=== PATIENT | female | born 1935 | race Caucasian/White ===

== ENCOUNTER 2018-05-15 07:10 | Emergency (ER) | payer OTHER, SELFPAY ==
[2018-05-15 07:10] VITALS: BP 183/82; PULSE 80; RESP 16; TEMP 36.6; O2SAT 96
[2018-05-15 07:20] VITALS: BP 183/82; PULSE 73; RESP 17; O2SAT 95
--- NOTE | 2018-05-15 07:32 | ED.FALL ---
HPI - Fall General Chief Complaint: Trauma Stated Complaint: FELL DOWN STAIRS HIT HEAD Time Seen by Provider: 05/15/18 07:19 Source: patient Mode of arrival: ambulatory Limitations: no limitations History of Present Illness HPI Narrative: Patient is an 82-year-old female on anticoagulation here for evaluation after she fell down flight of stairs at her home. She states that she missed a step while going to the bathroom. She did hit her head. She does have left hip pain. Does have a history of epilepsy but feels like she did not have a seizure. Came into the emergency department by private vehicle. Is complaining of some dizziness. Related Data Home Medications Medication Instructions Recorded Confirmed atorvastatin 10 mg PO DAILY 05/15/18 05/15/18 clopidogrel 75 mg PO DAILY 05/15/18 05/15/18 gabapentin 200 mg PO QID 05/15/18 05/15/18 levothyroxine 88 mcg PO DAILY 05/15/18 05/15/18 lisinopril 20 mg PO DAILY 05/15/18 05/15/18 phenobarbital 97.2 mg PO DAILY 05/15/18 05/15/18 phenytoin sodium extended 05/15/18 Previous Rx's Medication Instructions Recorded acetaminophen-codeine 1 tab PO Q4-6H PRN #10 tab 05/15/18 [Tylenol-Codeine #3] Allergies Allergy/AdvReac Type Severity Reaction Status Date / Time Penicillins Allergy Verified 05/15/18 07:34 Review of Systems Constitutional Denies fever(s), Denies frequent falls and Reports headache(s) Eyes Denies change in vision and Denies diplopia ENT Ears, Nose, Mouth, and Throat: Reports dizziness, Reports headache(s) and Reports disequilibrium Cardiovascular Denies chest pain, Denies syncope, Denies edema, Denies palpitations and Denies dyspnea Respiratory Denies dyspnea Gastrointestinal Gastrointestinal: Denies abdominal pain, Denies nausea and Denies vomiting Genitourinary Denies dysuria Musculoskeletal Comments: Left hip pain, left shoulder pain, lower back pain Integumentary/Breasts Comments: Bleeding from the back of the head Neurologic Denies confusion, Reports dizziness, Denies syncope, Denies frequent falls, Reports headache(s) and Reports disequilibrium Psychiatric Denies confusion Endocrine Denies palpitations Hematologic/Lymphatic Comments: On anticoagulation Exam Initial Vital Signs Initial Vital Signs: Vital Signs Temperature 97.8 F 05/15/18 07:10 Pulse Rate 80 05/15/18 07:10 Respiratory Rate 16 05/15/18 07:10 Blood Pressure 183/82 H 05/15/18 07:10 Pulse Oximetry 96 05/15/18 07:10 Const General: cooperative, comfortable, well developed, well groomed and No acute distress Orientation: alert, awake and oriented x3 HENMT Head: other (Bleeding from the back the head. 2 cm laceration a goose egg on the left p) Eyes Pupils: PERRL Chest Chest: normal inspection of the chest Resp Effort & Inspection: normal respiratory effort Auscultation: clear to auscultation bilaterally Cardio Rate: regular rate Rhythm: regular rhythm Pulses: radial pulses present GI Inspection: non-distended Palpation: soft, No firm and No tender Back/Spine/Pelvis Cervical Spine: cervical ROM normal, No collar present, No cervical muscular tenderness, No cervical spasm, No cervical spinal tenderness, No step off deformity and No cervical ROM abnormal Thoracic/Lumbar Spine: No thoracic spinal tenderness and lumbar spinal tenderness Other: Tenderness to palpation midline back Skin Other: Abrasion and bruising over the posterior aspect of the left shoulder. Neuro General: alert, awake and oriented x3 Cognition: normal cognition Speech: speech normal Extrem General: normal to inspection and capillary refill normal Other: Patient with full range of motion of the left shoulder. Able to touch her right shoulder with her left hand. Does have flexion-extension of the left wrist however is tender to palpation of the left hemipelvis. Right upper extremity unremarkable. Right lower extremity unremarkable. Psych Appearance: grossly normal and well kempt [facility] Medical History Epilepsy (Acute) Social History marital status: lives independently: Yes Social History marital status: lives independently: Yes Procedures Laceration Repair Laceration 1: Site: scalp Size (cm): 4 Description: linear Depth: simple, single layer Local Anesthetic: lidocaine 1% and with epi Amount of anesthesia used (mL): 5 Pre-repair: wound explored and irrigated extensively Skin layer closed with: kit Number of sutures: 4 Course Orders Ordered: ED Orders 05/15/18 07:32 XR lumbar spine 2-3V Stat XR pelvis 1-2V Stat 05/15/18 07:39 CT head/brain wo con Stat 05/15/18 08:18 Urine Microscopic Stat 05/15/18 08:25 Partial Thromboplastin Time Stat Prothrombin Time INR Stat Vital Signs - 8 hr 05/15/18 07:10 05/15/18 07:20 05/15/18 08:00 Temperature 97.8 F Pulse Rate 80 73 71 Respiratory Rate 16 17 17 Blood Pressure 183/82 H Blood Pressure [Right Arm] 183/82 H 165/64 H Pulse Oximetry 96 95 05/15/18 08:30 05/15/18 09:00 05/15/18 10:28 Temperature 97.7 F Pulse Rate 75 91 H 86 Respiratory Rate 18 16 16 Blood Pressure 130/70 Blood Pressure [Right Arm] 141/64 H 112/74 Pulse Oximetry 100 96 MDM - Fall Lab Data Lab Results 05/15/18 05/15/18 Range/Units 08:18 08:25 PT 11.5 (10.1-12.7) SECONDS INR 1.0 (0.9-1.3) APTT 27 (26.4-36.2) SECONDS Urine RBC 10-30/hpf H (0-5/HPF) Urine WBC None seen (0-5/HPF) Urine Bacteria None seen (None) Ur Culture Indicated? Cult not indicated Urine Dip Bedside Urine Glucose Negative Bedside Urine Bilirubin - Negative Bedside Urine Ketone - Negative Urine Specific [place] 1.015 Bedside Urine Occult Blood +++ Bedside Urine pH 7.5 Bedside Urine Protein - Negative Bedside Urine Urobilinogen - Negative Bedside Urine Nitrite - Negative Bedside Urine Leukocytes - Negative Esterase Imaging Data CT scan - head: Radiologist's impression: [address] [address] [address] Scan Report Signed Patient: MARC CARREON [facility]#: [id number] : 8Acct:[id number] Age/Sex: 82 / FDate of Service: 05/15/18 Loc: ED Accession Number: [id number] Procedure: CT head/brain wo con Ordering Provider: Marvel Smith D.O. PROCEDURE: CT HEAD/BRAIN WO CON INDICATIONS: fall on anticoagulation TECHNIQUE: Noncontrast 4.5 mm thick angled axial sections acquired from the foramen magnum to the vertex, with coronal and sagittal reformats. For radiation dose reduction, the following was used: automated exposure control, adjustment of mA and/or kV according to patient size. COMPARISON: None. FINDINGS: Image quality: Excellent. CSF spaces: Basal cisterns are patent. No extra-axial fluid collections. The ventricles are symmetric in size and shape. Brain: No intracranial bleeds or masses. There is cerebral volume loss for age, with resultant ventricular and sulcal prominence. There are periventricular and deep white matter chronic small vessel ischemic changes. There is intracranial internal carotid artery atherosclerosis. Skull and face: Left parieto-occipital scalp contusion. Hyperostosis frontalis. Calvarium and visualized facial bones appear intact, without suspicious lesions. Sinuses: Visualized sinuses and mastoids are clear. IMPRESSION: 1. No acute intracranial abnormalities. 2. Cerebral volume loss and chronic microvascular ischemic changes. Dictated by: Blessing Bergeron M.D. on 05/15/2018 at 7:54 Approved by: Blessing Bergeron M.D. on 05/15/2018 at 7:56 lumbar spine X ray: Radiologist's impression: [address] [address] XRay Report Signed Patient: Marc Carreon [facility]#: [id number] : 8Acct:[id number] Age/Sex: 82 / FDate of Service: 05/15/18 Loc: ED Accession Number: [id number] Procedure: XR lumbar spine 2-3V Ordering Provider: Marvel Smith D.O. PROCEDURE: XR LUMBAR SPINE 2-3V INDICATIONS: fall with pain TECHNIQUE: 3 views of the lumbar spine were acquired. COMPARISON: None. FINDINGS: Bones: 5 [id number] vertebrae are present. There is n severely bowed convex scoliotic curvature with apex at L2. No gross vertebral body compression fractures. However, evaluation is limited secondary to scoliotic curvature and osteopenia. Multilevel superimposed degenerative changes are present. No suspicious bony lesions. Soft tissues: Overlying bowel gas pattern is normal. No suspicious soft tissue calcifications. IMPRESSION: No gross acute fracture. However, this is a limited exam secondary to scoliotic curvature, osteopenia and severe degenerative change. If clinical concern persists, CT is recommended. Dictated by: Genoveva Caicedo M.D. on 05/15/2018 at 8:32 Approved by: Genoveva Caicedo M.D. on 05/15/2018 at 8:33 X ray pelvis: Radiologist's impression: [address] [address] XRay Report Signed Patient: Marc Carreon [facility]#: [id number] : 8Acct:[id number] Age/Sex: 82 / FDate of Service: 05/15/18 Loc: ED Accession Number: [id number] Procedure: XR pelvis 1-2V Ordering Provider: Marvel Smith D.O. PROCEDURE: XR PELVIS 1-2V INDICATIONS: fall with left hip pain TECHNIQUE: 1 view(s) of the pelvis acquired. COMPARISON: None. FINDINGS: Bones: No fractures or dislocations. No suspicious bony lesions. Soft tissues: Visualized bowel gas pattern is normal. No suspicious soft tissue calcifications. IMPRESSION: No visualized acute fracture or dislocation. However, if clinical concern and/or pain persist, short interval imaging followup in 7-10 days is recommended, as occult injury cannot be definitively excluded. Dictated by: Genoveva Caicedo M.D. on 05/15/2018 at 8:31 Approved by: Genoveva Caicedo M.D. on 05/15/2018 at 8:32 MDM Narrative Medical decision making narrative: No acute orthopedic injuries noted on the x-rays. Her scalp laceration was closed as above. Patient stated that she felt okay going home since she is living with her son and [id number]. We did discuss the importance of her not falling again. We did discuss that her pain medication that I was sending her home with could potentially make her drowsy and that she needed to be careful. She was given return precautions. She does have a walker at home. Patient did walk for short distance here in the emergency department prior to discharge both her and her son expressed understanding and agreement with this plan. Discharge Plan Departure Patient Disposition: Home Clinical Impression: Laceration of scalp Qualifiers: Encounter type: initial encounter Qualified Code(s): S01.01XA - Laceration without foreign body of scalp, initial encounter Contusion of left shoulder Qualifiers: Encounter type: initial encounter Qualified Code(s): S40.012A - Contusion of left shoulder, initial encounter Acute hip pain Qualifiers: Laterality: left Qualified Code(s): M25.552 - Pain in left hip Fall Qualifiers: Encounter type: initial encounter Qualified Code(s): W19.XXXA - Unspecified fall, initial encounter Discharge Date/Time: 05/15/18 10:29 Interventions: ED Discharge Assessment Last Done: 05/15/18 10:28 Instructions: DI for Laceration Repair -- Kit, DI for Laceration Repair of the Scalp, How to Prevent Falls Activity Restrictions/Additional Instructions: Expect to be sore. Continue all of your medications. The kit do need to be removed in the next 7-10 days. You can shower like normal and use soap and water like normal. Return to the emergency department for any new or worsening symptoms Prescriptions: New acetaminophen-codeine [Tylenol-Codeine #3] 300-30 mg tablet 1 tab PO Q4-6H PRN (Reason: pain) Qty: 10 RF: 0 No Action phenobarbital 97.2 mg tablet 97.2 mg PO DAILY RF: 0 atorvastatin 10 mg tablet 10 mg PO DAILY RF: 0 lisinopril 20 mg tablet 20 mg PO DAILY RF: 0 phenytoin sodium extended 100 mg capsule RF: 0 clopidogrel 75 mg tablet 75 mg PO DAILY RF: 0 levothyroxine 88 mcg tablet 88 mcg PO DAILY RF: 0 gabapentin 100 mg capsule 200 mg PO QID RF: 0
--- NOTE | 2018-05-15 07:39 | DI.CT.S_ITS ---
PROCEDURE: CT HEAD/BRAIN WO CON INDICATIONS: fall on anticoagulation TECHNIQUE: Noncontrast 4.5 mm thick angled axial sections acquired from the foramen magnum to the vertex, with coronal and sagittal reformats. For radiation dose reduction, the following was used: automated exposure control, adjustment of mA and/or kV according to patient size. COMPARISON: None. FINDINGS: Image quality: Excellent. CSF spaces: Basal cisterns are patent. No extra-axial fluid collections. The ventricles are symmetric in size and shape. Brain: No intracranial bleeds or masses. There is cerebral volume loss for age, with resultant ventricular and sulcal prominence. There are periventricular and deep white matter chronic small vessel ischemic changes. There is intracranial internal carotid artery atherosclerosis. Skull and face: Left parieto-occipital scalp contusion. Hyperostosis frontalis. Calvarium and visualized facial bones appear intact, without suspicious lesions. Sinuses: Visualized sinuses and mastoids are clear. IMPRESSION: 1. No acute intracranial abnormalities. 2. Cerebral volume loss and chronic microvascular ischemic changes. Dictated by: Blessing Bergeron M.D. on 05/15/2018 at 7:54 Approved by: Blessing Bergeron M.D. on 05/15/2018 at 7:56
[2018-05-15 08:00] VITALS: BP 165/64; PULSE 71; RESP 17
[2018-05-15 08:30] VITALS: BP 141/64; PULSE 75; RESP 18; O2SAT 100
[2018-05-15 08:56] LABS: PTT Partial Thromboplastin Tim 27 SECONDS (26.4-36.2); Prothrombin Time 11.5 SECONDS (10.1-12.7)
[2018-05-15 09:00] VITALS: BP 112/74; PULSE 91; RESP 16
[2018-05-15 09:22] LABS: Bacteria Urine None Seen; WBC Urine None Seen (0-5/HPF)
--- NOTE | 2018-05-15 09:23 | PC.NURSE ---
Addendum entered by Allie Ruano R.N. 05/15/18 09:26: Walked 10ft with walker with assistance from this EDRN. Patient is staying with her son here for a while and will have assistance getting to the bathroom and aroudn the house during recovery. has walker with her at his house. Patient reports pain in left leg and back while walking and I need to sit down now. States I need to take my gabapentin. Patient ok to take own meds. onelia Smith. patient to bathroom in wheelchair with assistance from [employer]. Patient also reports dizziness with all postition changes and movement which is new for her. MD Smith aware. Original Note: Walked 10ft with walker with assistance from this EDRN. Patient is staying with her son here for a while and will have assistance getting to the bathroom and aroudn the house during recovery. has walker with her at his house. Patient reports pain in left leg and back while walking and I need to sit down now. States I need to take my gabapentin. Patient ok to take own meds. onelia Smith. patient to bathroom in wheelchair with assistance from [employer].
--- NOTE | 2018-05-15 09:30 | PC.NURSE ---
0910 MD Smith at bedside, laceration to occiput cleaned with normal saline. Laceration numbed and then stapled by .
[2018-05-15 09:46] LABS: RBC Urine 10-30/HPF (0-5/HPF)
[2018-05-15 09:47] LABS: Culture Indicated Urine Cult Not Indicated
[2018-05-15 10:28] VITALS: BP 130/70; PULSE 86; RESP 16; TEMP 36.5; O2SAT 96
== END 2018-05-15 10:29 | disposition home or self-care (01) ==
PROVIDERS: Emergency Provider Emergency Medicine
DX: S01.01XA Laceration without foreign body of scalp, initial encounter (principal); S40.012A Contusion of left shoulder, initial encounter; M25.552 Pain in left hip; W10.8XXA Fall (on) (from) other stairs and steps, initial encounter
CPT/HCPCS: 12002; 36415; 70450; 72100; 72170; 81003; 81015; 85610; 85730; 93041; 99285

== ENCOUNTER 2018-05-24 12:51 | Emergency (ER) | payer MEDICARE, SELFPAY ==
[2018-05-24 13:40] VITALS: BP 152/66; PULSE 76; RESP 14; TEMP 36.6; O2SAT 94
--- NOTE | 2018-05-24 13:47 | ED.RECABL ---
HPI - Recheck/Abnormal Lab/Rx <MINNA Soni - Last Filed: 05/24/18 21:32> General Chief Complaint: Recheck/Abnormal Lab/Rx Stated Complaint: Stiches removal Time Seen by Provider: 05/24/18 13:47 Source: patient Mode of arrival: ambulatory Limitations: no limitations History of Present Illness HPI narrative: 82-year-old female with history of epilepsy is a nonsmoker here for to have lissett removed to laceration to the back of her scalp. She had lissett placed there 9 days ago due to a ground level fall hitting the back of her head. She denies any complications with the wound no signs of infection. She reports she still has some slight tenderness to the area. No drainage from the area. She denies any other concerns or complaints this timeframe. MD complaint: suture/staple removal Related Data Home Medications Medication Instructions Recorded Confirmed atorvastatin 10 mg PO DAILY 05/15/18 05/15/18 clopidogrel 75 mg PO DAILY 05/15/18 05/15/18 gabapentin 200 mg PO QID 05/15/18 05/15/18 levothyroxine 88 mcg PO DAILY 05/15/18 05/15/18 lisinopril 20 mg PO DAILY 05/15/18 05/15/18 phenobarbital 97.2 mg PO DAILY 05/15/18 05/15/18 phenytoin sodium extended 05/15/18 Previous Rx's Medication Instructions Recorded acetaminophen-codeine 1 tab PO Q4-6H PRN #10 tab 05/15/18 [Tylenol-Codeine #3] Allergies Allergy/AdvReac Type Severity Reaction Status Date / Time Penicillins Allergy Verified 05/24/18 13:45 Review of Systems <MINNA Soni - Last Filed: 05/24/18 21:32> Review of Systems Here for staple removal to scalp laceration Constitutional Denies chills, Denies fever(s), Denies lethargy and Denies weakness Eyes Denies change in vision, Denies eye discharge, Denies irritation and Denies loss of vision ENT Ears, Nose, Mouth, and Throat: Denies change in voice, Denies neck pain and Denies sore throat Cardiovascular Denies chest pain, Denies irregular heart rhythm, Denies lightheadedness, Denies palpitations, Denies dyspnea, Denies dyspnea on exertion and Denies orthopnea Respiratory Denies cough, Denies dyspnea, Denies dyspnea on exertion and Denies wheezing Gastrointestinal Gastrointestinal: Denies abdominal pain, Denies change in bowel habits, Denies diarrhea, Denies nausea and Denies vomiting Genitourinary Denies hematuria, Denies flank pain, Denies urinary incontinence and Denies urinary urgency Musculoskeletal Denies neck pain Integumentary/Breasts Denies pruritus, Denies erythema, Denies rash and Denies wounds Neurologic Denies confusion, Denies loss of vision and Denies weakness Psychiatric Denies anxiety, Denies confusion, Denies depression, Denies homicidal ideation and Denies suicidal ideation Endocrine Denies palpitations Hematologic/Lymphatic Denies easy bruising Allergic/Immunologic Denies wheezing PFSH <MINNA Soni - Last Filed: 05/24/18 21:32> Medical History Epilepsy (Acute) Social History marital status: lives independently: Yes Smoking Status: Unknown if ever smoked Social History marital status: lives independently: Yes Smoking Status: Unknown if ever smoked Exam <MINNA Soni - Last Filed: 05/24/18 21:32> Initial Vital Signs Initial Vital Signs: Vital Signs Temperature 97.8 F 05/24/18 13:40 Pulse Rate 76 05/24/18 13:40 Respiratory Rate 14 05/24/18 13:40 Blood Pressure 152/66 H 05/24/18 13:40 Pulse Oximetry 94 05/24/18 13:40 Const General: cooperative and well developed Nutritional Appearance: well nourished Orientation: alert, awake, oriented x3 and not confused [facility] Head: normocephalic, laceration (Laceration to posterior scalp with good wound approximation ) and other (Laceration of scalp with no signs of infection and healing well) Ears: external ears normal and TM's normal bilaterally Nose: external nose normal and No nasal discharge Face and sinus: sinuses nontender, face symmetric, no sinus tenderness and No dry mucous membranes Mouth: oral mucosae normal and moist mucous membranes Teeth and gingiva: dentition normal Throat: tonsils normal and uvula midline Eyes Conjunctivae: conjunctivae normal Sclera: sclerae normal Pupils: PERRL EOM: EOM intact bilaterally Resp Effort & Inspection: normal respiratory effort, able to speak in complete sentences, no respiratory distress and no use of accessory muscles Auscultation: clear to auscultation bilaterally, no rales, no rhonchi and no wheezes Cardio Rate: regular rate Rhythm: regular rhythm Heart Sounds: no click, no gallops, no murmurs and no rubs Pulses: normal peripheral pulses Skin General: no rashes or lesions noted, No jaundice and No petechiae Neuro General: alert and oriented x3 Speech: speech normal <Marvel Smith DO - Last Filed: 05/25/18 20:20> Initial Vital Signs Initial Vital Signs: Vital Signs Temperature 97.8 F 05/24/18 13:40 Pulse Rate 76 05/24/18 13:40 Respiratory Rate 14 05/24/18 13:40 Blood Pressure 152/66 H 05/24/18 13:40 Pulse Oximetry 94 05/24/18 13:40 Course <MINNA Soni - Last Filed: 05/24/18 21:32> Vital Signs - 8 hr 05/24/18 13:40 Temperature 97.8 F Pulse Rate 76 Respiratory Rate 14 Blood Pressure 152/66 H Pulse Oximetry 94 <Marvel Smith DO - Last Filed: 05/25/18 20:20> Vital Signs - 8 hr 05/24/18 13:40 Temperature 97.8 F Pulse Rate 76 Respiratory Rate 14 Blood Pressure 152/66 H Pulse Oximetry 94 [facility] - Recheck/Abnormal Lab/Rx <MINNA Soni - Last Filed: 05/24/18 21:32> [facility] Narrative Medical decision making narrative: Laceration posterior scalp appears to be healing well with good wound adhesion no signs of infection. Four lissett were removed with no complications. Wound dressed with bacitracin. Dress wound daily with bacitracin until healed. Follow up with primary care provider. Return emergency room for any worsening symptoms. Discharge Plan Departure Patient Disposition: Home Clinical Impression: Laceration of scalp Qualifiers: Encounter type: initial encounter Qualified Code(s): S01.01XA - Laceration without foreign body of scalp, initial encounter Discharge Date/Time: 05/24/18 14:39 Interventions: ED Discharge Assessment Last Done: 05/24/18 14:38 Instructions: DI for Suture Removal Activity Restrictions/Additional Instructions: Laceration posterior scalp appears to be healing well with good wound adhesion no signs of infection. Four lissett were removed with no complications. Wound dressed with bacitracin. Dress wound daily with bacitracin until healed. Follow up with primary care provider. Return emergency room for any worsening symptoms. Prescriptions: No Action phenobarbital 97.2 mg tablet 97.2 mg PO DAILY RF: 0 atorvastatin 10 mg tablet 10 mg PO DAILY RF: 0 lisinopril 20 mg tablet 20 mg PO DAILY RF: 0 phenytoin sodium extended 100 mg capsule RF: 0 clopidogrel 75 mg tablet 75 mg PO DAILY RF: 0 levothyroxine 88 mcg tablet 88 mcg PO DAILY RF: 0 gabapentin 100 mg capsule 200 mg PO QID RF: 0 acetaminophen-codeine [Tylenol-Codeine #3] 300-30 mg tablet 1 tab PO Q4-6H PRN (Reason: pain) Qty: 10 RF: 0 Referrals: [facility] [Provider Group] <Marvel Smith DO - Last Filed: 05/25/18 20:20> Cosign ED Attending Rosa Attestation: I was available for consultation during this patient's emergency department encounter
== END 2018-05-24 14:39 | disposition home or self-care (01) ==
PROVIDERS: Emergency Provider Nurse Practitioner Family
DX: S01.01XD Laceration without foreign body of scalp, subsequent encounter (principal)
CPT/HCPCS: 99282

== ENCOUNTER 2020-05-23 05:59 | Emergency (ER) | payer OTHER, SELFPAY ==
[2020-05-23 06:00] VITALS: BP 176/89; PULSE 78; RESP 18; TEMP 36.1; O2SAT 96; BMI 30.2
--- NOTE | 2020-05-23 06:10 | ED.TRAUMA ---
HPI - Trauma General Chief Complaint: Fall Stated Complaint: GLF Time Seen by Provider: 05/23/20 06:10 Source: patient and EMS Mode of arrival: EMS Limitations: no limitations History of Present Illness HPI narrative: This is an 84-year-old female who had a ground level fall. Patient states she was walking with her walker. She states the walker went 1 direction and she went the other. She states she did hit the back of her head. She does take Plavix daily. She states she has a mild headache but denies any other pain or issues. Patient of did not really wish to come to the emergency department but lives at [facility] and states that they were insistent that she come for evaluation. She states she was headed to bed this morning, she is typically a night owl and falls asleep at about 5:00 a.m. she denies any new neck or back pain. She denies any numbness, tingling or weakness in her extremities. She denies any chest pain or shortness of breath no nausea. No vomiting. Patient states she has a history of seizures, she takes gabapentin for chronic pain in her lower extremity and back. Dyslipidemia medication, antihypertensive and Plavix. Patient states she is allergic to penicillin. Related Data Home Medications Medication Instructions Recorded Confirmed atorvastatin 10 mg PO DAILY 05/15/18 05/15/18 clopidogrel 75 mg PO DAILY 05/15/18 05/15/18 gabapentin 200 mg PO QID 05/15/18 05/15/18 levothyroxine 88 mcg PO DAILY 05/15/18 05/15/18 lisinopril 20 mg PO DAILY 05/15/18 05/15/18 phenobarbital 97.2 mg PO DAILY 05/15/18 05/15/18 phenytoin sodium extended 05/15/18 Previous Rx's Medication Instructions Recorded acetaminophen-codeine 1 tab PO Q4-6H PRN #10 tab 05/15/18 [Tylenol-Codeine #3] Allergies Allergy/AdvReac Type Severity Reaction Status Date / Time Penicillins Allergy Verified 05/24/18 13:45 Review of Systems Review of Systems ROS Unobtainable: All systems reviewed & are unremarkable except as noted in HPI and below Patient History Medical History (Updated 05/23/20 @ 06:23 by Sue Thomson DO) Epilepsy Social History marital status: lives independently: Yes Smoking Status: Unknown if ever smoked Smoking Status: Unknown if ever smoked alcohol intake frequency: other Substance Use Type: does not use Exam Narrative Exam Narrative: GEN: Patient appears in mild distress. HEAD: Patient has swelling posterior scalp, no raccoon/Dewitt sign. NECK: Nontender, painless range of motion, trachea midline Negative for Nexus criteria, there is no mid line tenderness, distracting injury, altered mental status, neuro deficit, recent EtOH. EYES: PERRLA, EOMI ENT: External inspection normal, trachea is midline, TM's are normal no hemotypanum, Nares are clear, no septal hematoma, no dental or oral injury, airway is normal and with normal occlusion, No bony tenderness RESP: Chest is nontender and has symmetric movement, no ecchymosis, breath sounds are normal no crackles, wheezes or rales CVS: Heart sounds are normal, no murmur noted, No JVD. ABG/GI: Nontender, soft, normal bowel sounds, no distention, no organomegaly, pelvic rock is negative NEURO: Oriented AOx3, neuro is grossly intact, sensation and motor is normal all 4 extremities moving, cranial nerves II through XII are intact, GCS is 15 PSYCH: Normal mood and affect SKIN: Intact, warm and dry, no crepitus and without decubitus BACK: No CVA tenderness, no vertebral tenderness, no step-off's, no crepitus EXT: Atraumatic, hips are nontender, no pedal edema, normal color and temperature, normal range of motion of extremities with normal tendon exam, 2+ pulses in all four extremities Initial Vital Signs Initial Vital Signs: Vital Signs Temperature 97 F L 05/23/20 06:00 Pulse Rate 78 05/23/20 06:00 Respiratory Rate 18 05/23/20 06:00 Blood Pressure 176/89 H 05/23/20 06:00 Pulse Oximetry 96 05/23/20 06:00 Scores GCS [place] coma scale eye opening: Spontaneous [place] coma scale verbal response: Orientated [place] coma scale motor response: Obey commands [place] coma scale total score: 15 Course Orders Ordered: ED Orders 05/23/20 06:17 CT head/brain wo con Stat Vital Signs Vital signs: Vital Signs - 8 hr 05/23/20 06:00 Temperature 97 F L Pulse Rate 78 Respiratory Rate 18 Blood Pressure 176/89 H Pulse Oximetry 96 MDM - Trauma Imaging Data CT scan - head: Radiologist's Impression: No CT evidence of acute intracranial abnormality. Cerebral volume loss, intracranial atherosclerotic disease and mild sequela of chronic small vessel ischemic disease. [facility] Narrative Medical decision making narrative: This is an 84-year-old female sent to the emergency department for mechanical fall on thinners which are Plavix. Patient denies any other injuries. Discharge Plan Departure Patient Disposition: Home Clinical Impression: Head injury Instructions: How to Prevent Falls Activity Restrictions/Additional Instructions: Follow up with your physician if you have any new concerns. You may continue your home medications as prescribed. Return to the emergency department for severe headaches, new neck or back pain, new numbness, weakness or tingling in your extremities, new chest pain or shortness of breath, persistent vomiting, loss of bowel or bladder control, passing out or other new or concerning symptoms. Prescriptions: No Action phenobarbital 97.2 mg tablet 97.2 mg PO DAILY RF: 0 atorvastatin 10 mg tablet 10 mg PO DAILY RF: 0 lisinopril 20 mg tablet 20 mg PO DAILY RF: 0 phenytoin sodium extended 100 mg capsule RF: 0 clopidogrel 75 mg tablet 75 mg PO DAILY RF: 0 levothyroxine 88 mcg tablet 88 mcg PO DAILY RF: 0 gabapentin 100 mg capsule 200 mg PO QID RF: 0 acetaminophen-codeine [Tylenol-Codeine #3] 300-30 mg tablet 1 tab PO Q4-6H PRN (Reason: pain) Qty: 10 RF: 0
--- NOTE | 2020-05-23 06:17 | DI.CT.S_ITS ---
PROCEDURE: CT HEAD/BRAIN WO CON INDICATIONS: Ground level fall, hit head, on thinners TECHNIQUE: Noncontrast 4.5 mm thick angled axial sections acquired from the foramen magnum to the vertex, with coronal and sagittal reformats. For radiation dose reduction, the following was used: automated exposure control, adjustment of mA and/or kV according to patient size. COMPARISON: [facility], CT, CT HEAD/BRAIN WO CON, 05/15/2018, 7:28. FINDINGS: Image quality: Excellent. CSF spaces: Basal cisterns are patent. No extra-axial fluid collections. The ventricles are symmetric in size and shape. Brain: No intracranial bleeds or masses. There is cerebral volume loss for age, with resultant ventricular and sulcal prominence. There are mild periventricular and deep white matter chronic small vessel ischemic changes. There is intracranial internal carotid artery atherosclerosis. Skull and face: Calvarium and visualized facial bones appear intact, without suspicious lesions. Sinuses: Visualized sinuses and mastoids are clear. IMPRESSION: 1. Age related volume loss and mild small vessel ischemic change. 2. No evidence acute stroke, hemorrhage, or mass. 3. No evidence of significant intracranial sequelae of acute trauma. Comment: Final report is concordant with preliminary interpretation provided by [facility]. Dictated by: Pravin Hawkins M.D. on 05/23/2020 at 6:26 Approved by: Pravin Hawkins M.D. on 05/23/2020 at 6:27
[2020-05-23 09:45] VITALS: BP 164/71; PULSE 66; O2SAT 94
== END 2020-05-23 09:46 | disposition home or self-care (01) ==
PROVIDERS: Emergency Provider Emergency Medicine
DX: S09.90XA Unspecified injury of head, initial encounter (principal); R51.9 Headache, unspecified; Z79.01 Long term (current) use of anticoagulants; W18.30XA Fall on same level, unspecified, initial encounter
CPT/HCPCS: 70450; 99284

== ENCOUNTER 2020-12-31 10:15 | Emergency (ER) | payer OTHER, SELFPAY ==
[2020-12-31] VITALS (12 sets, daily range): BP systolic 107–199; BP diastolic 57–98; PULSE 57–75; RESP 14–23; TEMP 36.4; O2SAT 93–96; BMI 31.1
--- NOTE | 2020-12-31 10:28 | DI.RAD.S_ITS ---
PROCEDURE: XR CHEST 1V INDICATIONS: chest pain TECHNIQUE: One view of the chest was acquired. COMPARISON: None. FINDINGS: Surgical changes and devices: None. Lungs and pleura: There is elevation of left hemidiaphragm with suggestion of left basilar atelectasis. No definite focal infiltrate. No significant pleural effusion or gross pneumothorax. Mediastinum: Tortuous thoracic aorta is seen. Heart size is enlarged. Bones and chest wall: No suspicious bony lesions. Overlying soft tissues appear unremarkable. IMPRESSION: Elevation of left hemidiaphragm with left basilar atelectasis. No definite focal infiltrate. No pleural effusion or pneumothorax. Dictated by: Blu Barfield M.D. on 12/31/2020 at 10:51 Approved by: Blu Barfield M.D. on 12/31/2020 at 10:52
--- NOTE | 2020-12-31 10:42 | ED_ITS ---
HPI - Chest Pain General Chief Complaint: Chest Pain Stated Complaint: Chest pain Time Seen by Provider: 12/31/20 10:28 Source: patient Mode of arrival: Wheelchair Limitations: no limitations History of Present Illness HPI narrative: 85-year-old woman with a history of reported prior AR medical management treated as an outpatient with an echo has never had cardiac catheterization but is on Plavix, concurrent hyperlipidemia, hypothyroidism, hypertension, seizure disorder presents with chest pain that started at 7:00 a.m. this morning. She describes it as rather sharp occasionally radiating down into her arm and up into her neck and significantly worsened with any type of the deep breathing. She has a history of anemia and was scheduled for an upper and lower endoscopy today to further work that up. Along with the anemia she does have a history of significant reflux disease and Shepherd's esophagus. She describes no significant fevers, cough, chills. She does note that she has been more dyspneic over the last month particularly with exertion. I believe that was part of the reason for further looking at her anemia. Currently lives at [facility] in [place] and is followed by Dr. Irwin. Related Data Home Medications Medication Instructions Recorded Confirmed atorvastatin 10 mg tablet 10 mg PO DAILY 05/15/18 05/15/18 clopidogrel 75 mg tablet 75 mg PO DAILY 05/15/18 05/15/18 gabapentin 100 mg capsule 200 mg PO QID 05/15/18 05/15/18 levothyroxine 88 mcg tablet 88 mcg PO DAILY 05/15/18 05/15/18 lisinopril 20 mg tablet 20 mg PO DAILY 05/15/18 05/15/18 phenobarbital 97.2 mg tablet 97.2 mg PO DAILY 05/15/18 05/15/18 phenytoin sodium extended 100 mg 05/15/18 capsule Previous Rx's Medication Instructions Recorded acetaminophen 300 mg-codeine 30 mg 1 tab PO Q4-6H PRN #10 tab 05/15/18 tablet (Tylenol-Codeine #3) Allergies Allergy/AdvReac Type Severity Reaction Status Date / Time Penicillins Allergy Verified 12/31/20 10:28 Review of Systems Review of Systems Narrative: Remainder of complete review of systems is otherwise unremarkable except for that included in the HPI. Patient History Medical History (Updated 12/31/20 @ 13:43 by Adore Young MD) Acid reflux Epilepsy Paroxysmal atrial fibrillation Social History marital status: lives independently: Yes Smoking Status: Unknown if ever smoked Smoking Status: Unknown if ever smoked alcohol intake frequency: other Substance Use Type: does not use Exam Narrative Exam Narrative: General: Healthy appearing, in no acute distress. HEENT: Moist mucous membranes, normal sclera with reactive pupils, Neck: No JVD, supple Respiratory: Lungs are clear to auscultation, no wheezing no rales no rhonchi. Full and symmetrical air movement Cardiac: Regular rate and rhythm no murmurs no bruits Chest: Pain is reproduced with deep inspiration, no palpable or reproduced pain along ribs or sternal borders Abdomen: Soft, nontender, good bowel tones, no flank pain Skin: Warm and dry, slightly pale, no rashes Neurologic: Grossly neurologically intact with no obvious asymmetries or abnormalities Extremities: No trauma, well perfused Psych: Cooperative, appropriate insight and affect Initial Vital Signs Initial Vital Signs: Vital Signs Temperature 97.6 F 12/31/20 10:22 Pulse Rate 68 12/31/20 10:22 Respiratory Rate 18 12/31/20 10:22 Blood Pressure 199/88 H 12/31/20 10:22 Pulse Oximetry 95 12/31/20 10:22 Course Orders Ordered: ED Orders 12/31/20 10:28 XR chest 1V Stat EKG-12 Lead Stat 12/31/20 10:30 Complete Blood Count AUTO DIFF Stat Comprehensive Metabolic Panel Stat Lipase Stat Troponin & CK Cardiac Panel Stat Discontinued Medications Acetaminophen (Acetaminophen 325 Mg Tablet) 975 mg PO NOW ONE Stop: 12/31/20 11:02 Last Admin: 12/31/20 11:06 Dose: 975 mg Documented by: JOSE RAUL Al Hydrox/Mg Hydrox/Simethicone 20 ml/ Lidocaine HCl 15 ml 0 ml PO NOW ONE Stop: 12/31/20 11:02 Last Admin: 12/31/20 11:06 Dose: 30 ml Documented by: JOSE RAUL Vital Signs Vital signs: Vital Signs - 8 hr 12/31/20 10:22 12/31/20 10:25 12/31/20 10:26 Temperature 97.6 F Pulse Rate 68 67 69 Respiratory Rate 18 Blood Pressure 199/88 H 199/88 H Pulse Oximetry 95 96 95 12/31/20 10:30 12/31/20 11:00 12/31/20 11:01 Temperature Pulse Rate 66 64 64 Respiratory Rate 20 18 23 Blood Pressure 188/81 H 177/75 H Pulse Oximetry 96 94 96 12/31/20 11:30 12/31/20 11:31 12/31/20 12:00 Temperature Pulse Rate 64 75 61 Respiratory Rate 21 21 18 Blood Pressure 144/98 H 156/72 H Pulse Oximetry 96 95 94 12/31/20 12:30 12/31/20 13:00 Temperature Pulse Rate 57 L 57 L Respiratory Rate 14 14 Blood Pressure 134/63 107/57 L Pulse Oximetry 93 93 MDM - Chest Pain Lab Data Result diagrams: 12/31/20 10:30 12/31/20 10:30 Labs: Lab Results 12/31/20 12/31/20 Range/Units 10:30 10:30 WBC 4.7 (4.5-11.0) X10^3/uL RBC 3.90 L (4.0-5.2) X10^6/uL Hgb 12.3 (12.0-16.0) g/dL Hct 37.1 (36-46) % MCV 95.2 (80-100) fL MCH 31.6 (26-34) PG MCHC 33.2 (30-36) % RDW 13.9 (11.6-14.8) % Plt Count 223 (150-400) X10^3/uL Neut % (Auto) 63.8 (50-75) % Lymph % (Auto) 25.1 (25-40) % [place] % (Auto) 9.0 (3-14) % Eos % (Auto) 1.4 L (2-4) % Baso % (Auto) 0.7 (0-2) % Neut # (Auto) 3000 (4713-5139) /uL Lymph # (Auto) 1200 (2244-9445) /uL [place] # (Auto) 400 (0-900) /uL Eos # (Auto) 100 (0-450) /uL Baso # (Auto) 0 (0-100) /uL Sodium 135 L (137-145) mmol/L Potassium 3.2 L (3.4-5.1) mmol/L Chloride 95 L (98-107) mmol/L Carbon Dioxide 28 (22-32) mmol/L BUN 10 (7-17) mg/dL Creatinine 0.65 (0.52-1.04) mg/dL Estimated GFR > 60.0 (>60) mL/min BUN/Creatinine Ratio 15.4 (6-22) Glucose 85 (80-110) mg/dL Calcium 9.3 (8.4-10.2) mg/dL Total Bilirubin 0.5 (0.2-1.3) mg/dL AST 37 H (14-36) IU/L ALT 20 (<35) IU/L Alkaline Phosphatase 179 H (38-126) U/L Total Creatine Kinase 71 (30-135) U/L CK-MB (CK-2) TNP CK-MB (CK-2) Rel Index TNP Troponin I < 0.012 (0.01-0.034) ng/mL Total Protein 7.9 (6.3-8.2) g/dL Albumin 4.6 (3.5-5.0) g/dL Globulin 3.3 (1.7-4.1) g/dL Albumin/Globulin Ratio 1.4 (1.0-2.8) Lipase 68 (23-300) U/L Urine Dip Bedside Urine Glucose Negative Bedside Urine Bilirubin - Negative Bedside Urine Ketone - Negative Urine Specific [place] 1.015 Bedside Urine Occult Blood - Negative Bedside Urine pH 6.0 Bedside Urine Protein - Negative Bedside Urine Urobilinogen - Negative Bedside Urine Nitrite - Negative Bedside Urine Leukocytes - Negative Esterase Imaging Data Chest x-ray: Radiologist's Impression: FINDINGS: Surgical changes and devices: None. Lungs and pleura: There is elevation of left hemidiaphragm with suggestion of left basilar atelectasis. No definite focal infiltrate. No significant pleural effusion or gross pneumothorax. Mediastinum: Tortuous thoracic aorta is seen. Heart size is enlarged. Bones and chest wall: No suspicious bony lesions. Overlying soft tissues appear unremarkable. IMPRESSION: Elevation of left hemidiaphragm with left basilar atelectasis. No definite focal infiltrate. No pleural effusion or pneumothorax. Dictated by: Blu Barfield M.D. on 12/31/2020 at 10:51 ECG Data Interpretation: Sinus rhythm with first-degree AV block at a rate of 69 Normal axis No acute ischemic changes MDM Narrative Medical decision making narrative: 85-year-old woman presents with chest pain onset 7:00 a.m. this morning worse with deep breathing no significant dyspnea, diaphoresis. She notes that it does occasionally radiate up into her neck and into her arm. She has had chronic pleuritic type chest pain with similar symptoms for a number of years she also has significant reflux and has difficulty differentiating reflux symptoms from the musculoskeletal pleuritic type and somewhere in all of these chest pain episodes she did actually have a heart attack. With the actual heart attack she noted that she was dramatically tired to the point where all she could do was go back to bed and she did have some cold chills. Workup today is entirely unremarkable with a normal troponin approximately 4 hours after onset of pain. Pain improved with both Tylenol and a GI cocktail. It was exacerbated with deep breathing. At this time, I think that the likelihood of acute coronary syndrome is low and that this likely represents a musculoskeletal chest pain given the pleuritic component. I did encourage her to try to Tylenol should the pain return. I also told her that to Tums if the Tylenol is ineffective can certainly be tried and if she continues to have pain beyond that particularly if it is associated with nausea or sweating or shortness of breath then she should come to the ER for further evaluation. She is safe for home discharge at this time Discharge Plan Departure Patient Disposition: Home Clinical Impression: Atypical chest pain Instructions: DI for Atypical Chest Pain Activity Restrictions/Additional Instructions: Thank you for coming in today The chest pain that you are having today I suspect is likely pleuritic (relating to your lungs) or musculoskeletal (pulling at muscles or bones) in nature. The fact that it is worse with deep breathing and did seem to improve somewhat with Tylenol is encouraging. For future episodes similar today it is okay to try two Tylenol to see if that helps The pain could be related to your stomach/esophagus/heartburn. It would be okay to try 2 Tums to see if this makes a difference if you have future pain. It will also be important to reschedule your upper and lower endoscopies. If you have recurrent chest pain that is associated with nausea, shortness of breath or sweating those are all signs that make me worry more about your heart. In the end, if it is hurting more it is okay to return to the ER and we can always check again. I wish you the best Prescriptions: No Action phenobarbital 97.2 mg tablet 97.2 mg PO DAILY RF: 0 atorvastatin 10 mg tablet 10 mg PO DAILY RF: 0 lisinopril 20 mg tablet 20 mg PO DAILY RF: 0 phenytoin sodium extended 100 mg capsule RF: 0 clopidogrel 75 mg tablet 75 mg PO DAILY RF: 0 levothyroxine 88 mcg tablet 88 mcg PO DAILY RF: 0 gabapentin 100 mg capsule 200 mg PO QID RF: 0 acetaminophen-codeine [Tylenol-Codeine #3] 300-30 mg tablet 1 tab PO Q4-6H PRN (Reason: pain) Qty: 10 RF: 0 Referrals: Mary Anne Turner MD [Primary Care Provider] -
[2020-12-31 10:43] LABS: Add Manual Diff / Slide Review NO; Basophils Absolute Auto 0 /uL (0-100); Basophils Percent Auto 0.7 % (0-2); Eosinophils Absolute Auto 100 /uL (0-450); Eosinophils Percent Auto 1.4 % (2-4); Hematocrit 37.1 % (36-46); Hemoglobin 12.3 g/dL (12.0-16.0); Lymphocytes Absolute Auto 1200 /uL (1100-4500); Lymphocytes Percent Auto 25.1 % (25-40); Mean Corpuscular HGB Conc 33.2 % (30-36); Mean Corpuscular Hemoglobin 31.6 PG (26-34); Mean Corpuscular Volume 95.2 fL (80-100); Monocytes Absolute Auto 400 /uL (0-900); Neutrophils Absolute Auto 3000 /uL (1500-7000); Neutrophils Percent Auto 63.8 % (50-75); Platelet Count 223 X10^3/uL (150-400); Red Cell Distribution Width 13.9 % (11.6-14.8); White Blood Cell Count 4.7 X10^3/uL (4.5-11.0)
[2020-12-31] MEDS: MAG HYDROX/ALUMINUM/SIMETH SUS 20 ML, LIDOCAINE VISCOUS 2% 15 ML PO (11:06)
[2020-12-31] MEDS: ACETAMINOPHEN 325 MG TABLET 975 MG PO (11:06)
[2020-12-31 11:12] LABS: Alanine Aminotransferase 20 IU/L (<35); Albumin 4.6 g/dL (3.5-5.0); Albumin Globulin Ratio 1.4 (1.0-2.8); Alkaline Phosphatase 179 U/L (38-126); Aspartate Aminotransferase 37 IU/L (14-36); BUN Creatinine Ratio 15.4 (6-22); Bilirubin Total 0.5 mg/dL (0.2-1.3); Blood Urea Nitrogen 10 mg/dL (7-17); Calcium 9.3 mg/dL (8.4-10.2); Carbon Dioxide 28 mmol/L (22-32); Chloride 95 mmol/L (98-107); Creatine Kinase 71 U/L (30-135); Estimated Glomerular Filt Rate > 60.0 mL/min (>60); Globulin 3.3 g/dL (1.7-4.1); Glucose 85 mg/dL (80-110); HEMOLYSIS 27 (0-50); Lipase 68 U/L (23-300); Potassium 3.2 mmol/L (3.4-5.1); Sodium 135 mmol/L (137-145); Total Protein 7.9 g/dL (6.3-8.2)
[2020-12-31 11:22] LABS: Troponin I < 0.012 ng/mL (0.01-0.034)
== END 2020-12-31 13:53 | disposition home or self-care (01) ==
PROVIDERS: Emergency Provider Emergency Medicine; PCP Internal Medicine
DX: R07.89 Other chest pain (principal); M54.2 Cervicalgia
CPT/HCPCS: 36415; 71045; 80053; 81003; 82550; 83690; 84484; 85025; 93005; 93010; 99283; 99284

== ENCOUNTER → 2021-01-04 13:54 | Outpatient (CLI) | payer OTHER, SELFPAY ==
[2021-01-04 16:35] LABS: COVID19 -Nasal RAPID Negative (Negative)
== END ==
PROVIDERS: PCP Internal Medicine; Visit Provider Physician Assistant
DX: Z01.812 Encounter for preprocedural laboratory examination (principal); Z20.822 Contact with and (suspected) exposure to COVID-19
CPT/HCPCS: 87635; C9803

== ENCOUNTER 2021-01-05 12:24 | Day surgery (SDC) | payer OTHER, SELFPAY ==
[2021-01-05] MEDS: PROPARACAINE 0.5% OPHTH SOL 2 DROPS EYE-OP (14:07)
--- NOTE | 2021-01-05 14:19 | SUR.PREOP ---
Patient had tea with milk at 10:35am. Procedure cancelled by Dr Barth and Dr Ramsey.
== END 2021-01-05 12:25 | disposition home or self-care (01) ==
LOC: OR 12:27
PROVIDERS: PCP Internal Medicine; Referring Provider Ophthalmology; Visit Provider Ophthalmology
DX: H25.11 Age-related nuclear cataract, right eye (principal); Z53.09 Procedure and treatment not carried out because of other contraindication
CPT/HCPCS: 66984

== ENCOUNTER → 2021-01-18 13:29 | Outpatient (CLI) | payer OTHER, SELFPAY ==
[2021-01-18 15:45] LABS: COVID19 -Nasal RAPID Negative (Negative)
== END ==
PROVIDERS: PCP Internal Medicine; Visit Provider Nurse Practitioner Family
DX: Z20.822 Contact with and (suspected) exposure to COVID-19 (principal); Z01.812 Encounter for preprocedural laboratory examination
CPT/HCPCS: 87635; C9803

== ENCOUNTER 2021-01-19 11:55 | Day surgery (SDC) | payer OTHER, SELFPAY ==
[2021-01-19] MEDS: PROPARACAINE 0.5% OPHTH SOL 2 DROPS EYE-OP (12:37)
[2021-01-19] MEDS: CATARACT EYE COMPOUND (10 DROPS/SYRINGE) 3 DROPS EYE-OP (12:43)
[2021-01-19 12:56] VITALS: BMI 31.1
[2021-01-19 13:03] VITALS: BP 135/73; PULSE 62; RESP 14; TEMP 36.3; O2SAT 95
--- NOTE | 2021-01-19 13:09 | PM.PREOP ---
Pre-operative Note Interval Note History & Physical reviewed/Exam performed by Physician: Yes Changes to H&P: No
--- NOTE | 2021-01-19 13:09 | PM.OP.1 ---
Operative Date/Time/Diagnoses Pre-op diagnosis: Nuclear cataract right eye Procedure & Clinicians Procedure: Cataract Surgery Same procedure as scheduled: Yes Surgeon: Sanjay Ramsey Anesthesia Type: MAC +/- and Sedation Operative Notes Procedure in detail: Patient brought to the operating suite. Tetracaine drops placed in the right eye. Patient was prepped and draped in sterile manner. Wire lid speculum was placed in the eye. Betadine drops were placed on the eye. This was irrigated. Lidocaine jelly was placed on the eye. A paracentesis port was created with a side-port blade. 0.1 mL 1% preservative free lidocaine was injected into the anterior chamber. The anterior chamber was deepened with viscoelastic. 2.6 mm keratome was used to create a temporal clear corneal incision. Cystotome and Utrata forceps were used to create continuous tear capsulorrhexis. Balanced salt solution was used to hydro dissect the nucleus. The phacoemulsification handpiece was inserted and the nucleus was removed using the stop and chop technique. The irrigation aspiration handpiece was inserted and the remaining cortex was removed. Anterior chamber was deepened with viscoelastic. An Xie DIB00 intraocular lens with a power of 16.5 was injected into the capsular bag. Irrigation aspiration handpiece was inserted and the remaining viscoelastic was removed. Incision was hydrated with balanced salt solution and found to be leak free with pressure with Weck-Deborah sponges. 0.1 mL Vigamox injected anterior chamber. 0.3 mL Kenalog 10 mg was injected subconjunctivally. Lid speculum was removed. The patient left the operating room in excellent condition. Complications: none Post-operative Condition: stable Disposition: same day surgery
[2021-01-19] MEDS: HYALURONATE SODIUM 30 MG-10 MG/ML SYRINGES 1 BOX INTRAOCULA (13:31)
[2021-01-19] MEDS: MOXIFLOXACIN INJ 4 MG/0.8 ML VIAL 0.5 MG EYE-OP (13:31)
[2021-01-19] MEDS: PHENYLEPHRINE/LIDOCAINE VIAL (OR) 0.2 ML EYE-OP (13:31)
[2021-01-19] MEDS: TRIAMCINOLONE 50 MG/5 ML VIAL INJ (13:31)
[2021-01-19] MEDS: TETRACAINE 0.5% OPHTH DROPS 4 ML 2 DROPS EYE-OP (13:32)
[2021-01-19] MEDS: LIDOCAINE 2% (GLYDO) 6 ML GEL TOP (13:32)
[2021-01-19] MEDS: BALANCED SALT IRRIG SOLN NO.2 500 ML, EPINEPHrine 1 MG IRR (13:32)
[2021-01-19 13:45] VITALS: BP 127/71; PULSE 57; RESP 14; TEMP 36.1; O2SAT 95
== END 2021-01-19 14:46 | disposition home or self-care (01) ==
PROVIDERS: PCP Internal Medicine; Referring Provider Ophthalmology; Visit Provider Ophthalmology
PROC: (CPT 66984; principal; 2021-01-19 13:45)
DX: H25.11 Age-related nuclear cataract, right eye (principal); I10 Essential (primary) hypertension; E78.5 Hyperlipidemia, unspecified; I51.9 Heart disease, unspecified; E03.9 Hypothyroidism, unspecified; Z86.73 Personal history of transient ischemic attack (TIA), and cerebral infarction without residual deficits; I25.2 Old myocardial infarction
CPT/HCPCS: 66984; J0171; J2250; J3301

== ENCOUNTER → 2021-02-22 11:10 | Outpatient (CLI) | payer OTHER, SELFPAY ==
[2021-02-22 12:27] LABS: COVID19 -Nasal RAPID Negative (Negative)
== END ==
PROVIDERS: PCP Internal Medicine; Referring Provider Nurse Practitioner Family; Visit Provider Nurse Practitioner Family
DX: Z20.822 Contact with and (suspected) exposure to COVID-19 (principal)
CPT/HCPCS: 87635; C9803

== ENCOUNTER → 2021-02-23 11:09 | Day surgery (SDC) | payer OTHER, SELFPAY ==
[2021-02-23 13:11] VITALS: BP 147/71; PULSE 64; RESP 14; TEMP 36.6; O2SAT 95; BMI 32.0
--- NOTE | 2021-02-23 13:20 | PM.PREOP ---
Pre-operative Note Interval Note History & Physical reviewed/Exam performed by Physician: Yes Changes to H&P: No
--- NOTE | 2021-02-23 13:21 | PM.OP.1 ---
Operative Date/Time/Diagnoses Pre-op diagnosis: Nuclear Cataract Left eye Post-op diagnosis: same Procedure & Clinicians Same procedure as scheduled: Yes Surgeon: Sanjay Ramsey Anesthesia Type: MAC +/- and Sedation Operative Notes Procedure in detail: Patient brought to the operating suite. Tetracaine drops placed in the left eye. Patient was prepped and draped in sterile manner. Wire lid speculum was placed in the eye. Betadine drops were placed on the eye. This was irrigated. Lidocaine jelly was placed on the eye. A paracentesis port was created with a side-port blade. 0.1 mL 1% preservative free lidocaine was injected into the anterior chamber. The anterior chamber was deepened with viscoelastic. 2.6 mm keratome was used to create a temporal clear corneal incision. Cystotome and Utrata forceps were used to create continuous tear capsulorrhexis. Balanced salt solution was used to hydro dissect the nucleus. The phacoemulsification handpiece was inserted and the nucleus was removed using the stop and chop technique. The irrigation aspiration handpiece was inserted and the remaining cortex was removed. Anterior chamber was deepened with viscoelastic. An Xie DIB00 intraocular lens with a power of 16.0 was injected into the capsular bag. Irrigation aspiration handpiece was inserted and the remaining viscoelastic was removed. Incision was hydrated with balanced salt solution and found to be leak free with pressure with Weck-Deborah sponges. 0.1 mL Vigamox injected anterior chamber. 0.3 mL Kenalog 10 mg was injected subconjunctivally. Lid speculum was removed. The patient left the operating room in excellent condition. Complications: none Post-operative Condition: stable Disposition: same day surgery
[2021-02-23] MEDS: PROPARACAINE 0.5% OPHTH SOL 2 DROPS EYE-OP (13:24)
[2021-02-23] MEDS: CATARACT EYE COMPOUND (10 DROPS/SYRINGE) 3 DROPS EYE-OP (13:24)
[2021-02-23] MEDS: HYALURONATE SODIUM 30 MG-10 MG/ML SYRINGES 1 BOX INTRAOCULA (13:46)
[2021-02-23] MEDS: MOXIFLOXACIN INJ 4 MG/0.8 ML VIAL 0.5 MG EYE-OP (13:46)
[2021-02-23] MEDS: TRIAMCINOLONE 50 MG/5 ML VIAL INJ (13:47)
[2021-02-23] MEDS: TETRACAINE 0.5% OPHTH DROPS 4 ML 2 DROPS EYE-OP (13:47)
[2021-02-23] MEDS: PHENYLEPHRINE/LIDOCAINE VIAL (OR) 0.2 ML EYE-OP (13:47)
[2021-02-23] MEDS: BALANCED SALT IRRIG SOLN NO.2 500 ML, EPINEPHrine 1 MG IRR (13:47)
[2021-02-23] MEDS: LIDOCAINE 2% (GLYDO) 6 ML GEL TOP (13:48)
[2021-02-23 14:19] VITALS: BP 124/68; PULSE 60; RESP 17; TEMP 36.4; O2SAT 96
== END | disposition home or self-care (01) ==
PROVIDERS: PCP Internal Medicine; Referring Provider Ophthalmology; Visit Provider Ophthalmology
PROC: (CPT 66984; principal; 2021-02-23 13:15)
DX: H25.12 Age-related nuclear cataract, left eye (principal); I10 Essential (primary) hypertension; E78.5 Hyperlipidemia, unspecified; I51.9 Heart disease, unspecified; Z86.73 Personal history of transient ischemic attack (TIA), and cerebral infarction without residual deficits
CPT/HCPCS: 66984; J0171; J0330; J2250; J2704; J3010; J3301

== ENCOUNTER 2021-04-06 15:02 | Inpatient (IN) | payer OTHER, SELFPAY ==
[2021-04-06] VITALS (20 sets, daily range): BP systolic 177–209; BP diastolic 79–94; PULSE 60–84; RESP 16–27; TEMP 36.5–36.9; O2SAT 90–94; BMI 29.8
[2021-04-06 15:43] LABS: Alanine Aminotransferase 24 IU/L (<35); Albumin Globulin Ratio 1.1 (1.0-2.8); Alkaline Phosphatase 186 U/L (38-126); Aspartate Aminotransferase 38 IU/L (14-36); BUN Creatinine Ratio 16.7 (6-22); Bilirubin Total 0.9 mg/dL (0.2-1.3); Blood Urea Nitrogen 11 mg/dL (7-17); Carbon Dioxide 31 mmol/L (22-32); Chloride 94 mmol/L (98-107); Estimated Glomerular Filt Rate > 60.0 mL/min (>60); Globulin 4.4 g/dL (1.7-4.1); Glucose 139 mg/dL (80-110); HEMOLYSIS < 15 (0-50); Lipase 53 U/L (23-300); Potassium 3.8 mmol/L (3.4-5.1); Sodium 134 mmol/L (137-145); Total Protein 9.4 g/dL (6.3-8.2)
[2021-04-06 15:44] LABS: Add Manual Diff / Slide Review NO; Basophils Absolute Auto 0 /uL (0-100); Basophils Percent Auto 0.4 % (0-2); Eosinophils Absolute Auto 0 /uL (0-450); Eosinophils Percent Auto 0.1 % (2-4); Hematocrit 46.4 % (36-46); Hemoglobin 15.7 g/dL (12.0-16.0); Lymphocytes Absolute Auto 900 /uL (1100-4500); Mean Corpuscular HGB Conc 33.8 % (30-36); Mean Corpuscular Hemoglobin 30.3 PG (26-34); Mean Corpuscular Volume 89.6 fL (80-100); Monocytes Absolute Auto 400 /uL (0-900); Monocytes Percent Auto 4.9 % (3-14); Neutrophils Absolute Auto 7300 /uL (1500-7000); Neutrophils Percent Auto 84.6 % (50-75); Platelet Count 318 X10^3/uL (150-400); Red Blood Cell Count 5.17 X10^6/uL (4.0-5.2); White Blood Cell Count 8.7 X10^3/uL (4.5-11.0)
--- NOTE | 2021-04-06 15:53 | ED_ITS ---
HPI - Nausea/Vomiting/Diarrhea <Rasheed Cobos PA-C - Last Filed: 04/06/21 20:15> General Chief complaint: Nausea/Vomiting/Diarrhea Stated complaint: Dry heaving, 2 seizures, pain in back Time Seen by Provider: 04/06/21 15:53 Source: family Mode of arrival: Wheelchair History of Present Illness HPI Narrative: 85-year-old female with past medical history hypothyroidism, acid reflux, hyperlipidemia, hypertension, paroxysmal AFib, epilepsy, colon cancer, recent colectomy presents to the ED with 2 days of nausea, vomiting. Patient lives in an assisted living facility. Patient had 2 episodes of breakthrough seizures yesterday that her caregivers reported. Patient states that she has not had a grand mal seizure since 1968 and that yesterday seizures were different. Patient described it as feeling sleepy and feeling some twitching. Unable to get further history on this. Patient reports fatigue, nausea, vomiting, unable to tolerate p.o., flank pain. Denies fever, chills, chest pain, shortness of breath, abdominal pain, dysuria. Patient endorses urinary incontinence as baseline, wears adult diapers. Patient is COVID vaccinated and posted. Related Data Home Medications Medication Instructions Recorded Confirmed clopidogrel 75 mg tablet 75 mg PO DAILY 05/15/18 04/08/21 gabapentin 100 mg capsule 200 mg PO QID 05/15/18 04/08/21 levothyroxine 88 mcg tablet 88 mcg PO DAILY 05/15/18 04/08/21 lisinopril 20 mg tablet 20 mg PO DAILY 05/15/18 04/08/21 phenobarbital 97.2 mg tablet 97.2 mg PO 4-6XD 05/15/18 04/08/21 phenytoin sodium extended 100 mg 200 mg PO DAILY 05/15/18 04/08/21 capsule furosemide 20 mg tablet 20 mg PO DAILY 01/19/21 04/08/21 potassium chloride 10 mEq 10 meq PO DAILY 01/19/21 04/08/21 tablet,extended release(part/cryst) Allergies Allergy/AdvReac Type Severity Reaction Status Date / Time tramadol Allergy Severe Seizure Verified 02/23/21 13:25 Penicillins Allergy Verified 02/23/21 13:25 Review of Systems <Rasheed Cobos PA-C - Last Filed: 04/06/21 20:15> Review of Systems ROS Unobtainable: All systems reviewed & are unremarkable except as noted in HPI and below Constitutional Constitutional: Denies chills, Reports fatigue, Denies fever(s), Denies frequent falls, Reports lethargy and Reports weakness Eyes Eyes: Denies change in vision, Denies eye discharge, Denies irritation and Denies loss of vision ENT Ears, Nose, Mouth, and Throat: Denies change in voice, Denies dizziness, Denies neck pain, Denies sore throat and Denies throat swelling Cardiovascular Cardiovascular: Denies chest pain, Denies irregular heart rhythm, Denies lightheadedness, Denies palpitations, Denies dyspnea, Denies dyspnea on exertion and Denies orthopnea Respiratory Respiratory: Denies cough, Denies dyspnea, Denies dyspnea on exertion and Denies wheezing Gastrointestinal Gastrointestinal: Denies abdominal pain, Denies change in bowel habits, Denies diarrhea, Reports nausea and Reports vomiting Comments: Flank pain Genitourinary Genitourinary: Denies hematuria, Denies flank pain, Denies urinary incontinence and Denies urinary urgency Musculoskeletal Musculoskeletal: Denies back pain, Denies muscle weakness, Denies neck pain, Denies numbness and Denies tingling Integumentary/Breasts Skin/Breast: Denies pruritus, Denies erythema, Denies rash and Denies wounds Neurologic Neurologic: Denies behavioral changes, Denies confusion, Denies dizziness, Denies frequent falls, Denies loss of vision, Denies numbness, Reports seizure- like activity, Denies tingling and Reports weakness Psychiatric Psychiatric: Denies anxiety, Denies behavioral changes, Denies confusion, Denies depression, Denies homicidal ideation and Denies suicidal ideation Endocrine Endocrine: Reports fatigue, Denies flushing and Denies palpitations Hematologic/Lymphatic Hematologic/Lymphatic: Denies easy bruising Allergic/Immunologic Allergic/Immunologic: Denies urticaria, Denies throat swelling and Denies wheezing Patient History <Rasheed Cobos PA-C - Last Filed: 04/06/21 20:15> Medical History Acid reflux Epilepsy Paroxysmal atrial fibrillation Family History (Updated 04/07/21 @ 06:26 by MINNA Andrade) Father Brain tumor Mother Brain tumor Other Congestive heart failure Social History marital status: household members: family and other lives independently: Yes Smoking Status: Former smoker alcohol intake: never Smoking Status: Unknown if ever smoked alcohol intake frequency: other Substance Use Type: does not use Exam <Rasheed Cobos PA-C - Last Filed: 04/06/21 20:15> Initial Vital Signs Initial Vital Signs: Vital Signs Temperature 97.7 F 04/06/21 15:05 Pulse Rate 72 04/06/21 15:05 Respiratory Rate 22 04/06/21 15:05 Blood Pressure 177/85 H 04/06/21 15:05 Pulse Oximetry 93 04/06/21 15:05 Const General: cooperative and comfortable HENMT Head: normal to inspection Eyes General: appearance normal, both eyes and all related structures Neck Neck: normal visual inspection Chest Chest: normal inspection of the chest Resp Effort & Inspection: normal respiratory effort Auscultation: clear to auscultation bilaterally Cardio Rate: regular rate Rhythm: regular rhythm GI Other: Abdomen is soft, nondistended. Ventral wall hernia visualized which is tender to palpation. Positive right-sided CVA tenderness. Surgical incision from recent colectomy appears to be healing well with no signs of infection. General: CVA tenderness (Right-sided) Skin General: no rashes or lesions noted Neuro General: patient alert, patient awake and patient oriented x3 Psych Appearance: grossly normal <Sue Thomson DO - Last Filed: 04/25/21 08:20> Initial Vital Signs Initial Vital Signs: Vital Signs Temperature 97.7 F 04/06/21 15:05 Pulse Rate 72 04/06/21 15:05 Respiratory Rate 22 04/06/21 15:05 Blood Pressure 177/85 H 04/06/21 15:05 Pulse Oximetry 93 04/06/21 15:05 Course <Rasheed Cobos PA-C - Last Filed: 04/06/21 20:15> Course Course Narrative: Labs within normal limits. CT shows possible bowel ischemia or strangulation from the ventral wall hernia. Dr. Woo from surgery consulted. She recommends admitting as inpatient, giving patient IV fluids, Mazariegos catheter. Hospitalist Aviva Johnson consulted. Will admit patient. Orders Ordered: Discontinued Medications Acetaminophen (Acetaminophen 325 Mg Tablet) 650 mg PO Q6HR PRN PRN Reason: Fever/Mild Pain (1-3) Last Admin: 04/08/21 01:59 Dose: 650 mg Documented by: KM Acetaminophen (Acetaminophen 650 Mg Supp) 650 mg ND NOW ONE Stop: 04/07/21 09:44 Last Admin: 04/07/21 09:58 Dose: 650 mg Documented by: FLACA Bisacodyl (Bisacodyl 10 Mg Supp) 10 mg ND DAILY PRN PRN Reason: Constipation Chlorhexidine Gluconate (Chlorhexidine Gluconate 15 Ml Cup) 15 ml PO Q6HR [facility] Last Admin: 04/08/21 19:47 Dose: 15 ml Documented by: BALTAZAR Clopidogrel Bisulfate (Clopidogrel 75 Mg Tablet) 75 mg PO DAILY [facility] Last Admin: 04/08/21 17:11 Dose: Not Given Documented by: ANANTH Dextrose (Dextrose 50 % In Water 25 Gm/50 Ml Syringe) 25 gm IV NOW ONE Stop: 04/08/21 18:31 Last Admin: 04/08/21 16:50 Dose: 25 gm Documented by: TUYET Enalaprilat (Enalaprilat 2.5 Mg/ 2 Ml Vial) 0.625 mg IV Q6H [facility] Last Admin: 04/08/21 19:09 Dose: Not Given Documented by: Admin: 04/08/21 17:10 Dose: Not Given Documented by: Admin: 04/08/21 06:07 Dose: 0.625 mg Documented by: Admin: 04/08/21 00:40 Dose: Not Given Documented by: Admin: 04/07/21 18:10 Dose: 0.625 mg Documented by: Admin: 04/07/21 12:22 Dose: 0.625 mg Documented by: Admin: 04/07/21 06:22 Dose: Not Given Documented by: Admin: 04/07/21 00:57 Dose: 0.625 mg Documented by: LENARD Enoxaparin Sodium (Enoxaparin 40 Mg/0.4 Ml Syringe) 40 mg SUBCUT DAILY [facility] Fentanyl (Fentanyl 100 Mcg/2 Ml Inj) 0 mcg IV Q5M PRN PRN Reason: Pain, Moderate (4-6) Furosemide (Furosemide 20 Mg Tablet) 20 mg PO DAILY [facility] Gabapentin (Gabapentin 100 Mg Capsule) 200 mg PO QID [facility] Last Admin: 04/08/21 17:11 Dose: Not Given Documented by: Admin: 04/08/21 17:11 Dose: Not Given Documented by: ANANTH Heparin Sodium (Porcine) (Heparin 5,000 Unit/Ml Vial) 5,000 unit SUBCUT BID [facility] Last Admin: 04/08/21 07:43 Dose: Not Given Documented by: Admin: 04/07/21 21:04 Dose: 5,000 unit Documented by: Admin: 04/07/21 08:31 Dose: 5,000 unit Documented by: FLACA Hydrocortisone (Hydrocortisone 100 Mg/2 Ml Vial) 100 mg IV Q8H [facility] Last Admin: 04/08/21 19:05 Dose: 100 mg Documented by: TUYET Sodium Chloride (Normal Saline 0.9%) 1,000 mls @ 1,000 mls/hr IV BOLUS ONE Stop: 04/06/21 17:51 Last Infusion: 04/06/21 18:32 Dose: 0 mls/hr Documented by: Admin: 04/06/21 17:31 Dose: 1,000 mls/hr Documented by: HUGO Sodium Chloride (Normal Saline 0.9%) 1,000 mls @ 100 mls/hr IV CONT [facility] Last Infusion: 04/08/21 20:24 Dose: 10 mls/hr Documented by: Admin: 04/08/21 08:58 Dose: 100 mls/hr Documented by: Infusion: 04/08/21 07:04 Dose: 100 mls/hr Documented by: Admin: 04/07/21 21:04 Dose: 100 mls/hr Documented by: Infusion: 04/07/21 21:04 Dose: 100 mls/hr Documented by: Admin: 04/07/21 11:19 Dose: 100 mls/hr Documented by: Infusion: 04/07/21 10:46 Dose: 100 mls/hr Documented by: Admin: 04/07/21 00:46 Dose: 100 mls/hr Documented by: LENARD Levetiracetam 500 mg/ Sodium (Chloride) 105 mls @ 420 mls/hr IV Q12H [facility] Last Admin: 04/08/21 18:56 Dose: Not Given Documented by: Infusion: 04/08/21 00:00 Dose: 0 mls/hr Documented by: Admin: 04/07/21 23:38 Dose: 420 mls/hr Documented by: Infusion: 04/07/21 19:09 Dose: 0 mls/hr Documented by: Admin: 04/07/21 12:18 Dose: 420 mls/hr Documented by: Infusion: 04/07/21 06:22 Dose: 0 mls/hr Documented by: Admin: 04/07/21 00:46 Dose: 420 mls/hr Documented by: LENARD Meropenem 2 gm/ Sodium (Chloride) 100 mls @ 200 mls/hr IV Q8H [facility] Last Admin: 04/07/21 18:07 Dose: Not Given Documented by: FLACA Meropenem 2 gm/ Sodium (Chloride) 100 mls @ 200 mls/hr IV Q12H [facility] Last Infusion: 04/08/21 06:00 Dose: 0 mls/hr Documented by: Admin: 04/08/21 05:24 Dose: 200 mls/hr Documented by: Infusion: 04/07/21 19:09 Dose: 0 mls/hr Documented by: Admin: 04/07/21 18:09 Dose: 200 mls/hr Documented by: FLACA Lactated Ringer's (Lactated Ringers) 1,000 mls @ 42 mls/hr IV NOW ONE Stop: 04/09/21 09:44 Last Admin: 04/08/21 13:06 Dose: 42 mls/hr Documented by: Infusion: 04/08/21 13:06 Dose: 42 mls/hr Documented by: Admin: 04/08/21 09:57 Dose: 42 mls/hr Documented by: IRAIDA Aztreonam 1 gm/ Dextrose 50 mls @ 100 mls/hr IV Q8HR [facility] Last Infusion: 04/08/21 14:35 Dose: 0 mls/hr Documented by: Admin: 04/08/21 14:03 Dose: 100 mls/hr Documented by: MISAEL Metronidazole (Flagyl) 500 mg in 100 mls @ 100 mls/hr IV Q8H [facility] Last Infusion: 04/08/21 15:45 Dose: 0 mls/hr Documented by: Admin: 04/08/21 14:46 Dose: 100 mls/hr Documented by: MISAEL POTASSIUM CHLORIDE IN WATER (Potassium Cl 10 Meq/100 Ml Juani) 10 meq in 100 mls @ 100 mls/hr IV Q1H [facility] Stop: 04/08/21 12:44 Last Admin: 04/08/21 17:13 Dose: Not Given Documented by: Admin: 04/08/21 17:13 Dose: Not Given Documented by: ANANTH Piperacillin Sod/Tazobactam (Sod 3.375 gm/ Sodium Chloride) 100 mls @ 25 mls/hr IV NOW ONE Stop: 04/08/21 11:15 Last Infusion: 04/08/21 15:10 Dose: 0 mls/hr Documented by: Admin: 04/08/21 11:07 Dose: 25 mls/hr Documented by: KAM Vancomycin HCl (Vancomycin) 1,000 mg in 200 mls @ 200 mls/hr IV Q12H [facility] Last Infusion: 04/08/21 19:22 Dose: 0 mls/hr Documented by: Admin: 04/08/21 18:00 Dose: 200 mls/hr Documented by: HANK Propofol (Propofol) 1,000 mg in 100 mls @ 2.22 mls/hr IV TITRATE [facility]I; Protocol Last Titration: 04/08/21 20:24 Dose: 0 mcg/kg/min, 0 mls/hr Documented by: Titration: 04/08/21 18:58 Dose: 25 mcg/kg/min, 11.1 mls/hr Documented by: Admin: 04/08/21 15:10 Dose: 10 mcg/kg/min, 4.44 mls/hr Documented by: MISAEL Fentanyl 1,000 mcg/ Dextrose 250 mls @ 12.95 mls/hr IV TITRATE ANI; Protocol Last Admin: 04/08/21 15:10 Dose: 0.31 mcg/kg/hr, 5.735 mls/hr Documented by: MISAEL NOREPINEPHRINE BITARTRATE/D5W (Levophed) 4 mg in 250 mls @ 30 mls/hr IV TITRATE ANI; Protocol Last Titration: 04/08/21 20:00 Dose: 0 mcg/min, 0 mls/hr Documented by: Admin: 04/08/21 15:12 Dose: 2 mcg/min, 7.5 mls/hr Documented by: MISAEL Piperacillin Sod/Tazobactam (Sod 3.375 gm/ Sodium Chloride) 100 mls @ 25 mls/hr IV Q8H [facility] Epinephrine HCl 1 mg/ Dextrose 251 mls @ 15.06 mls/hr IV TITRATE ANI; Protocol Last Admin: 04/08/21 16:20 Dose: 1 mcg/min, 15.06 mls/hr Documented by: TUYET Vasopressin 20 unit/ Sodium (Chloride) 101 mls @ 9.09 mls/hr IV TITRATE ANI; Protocol Last Titration: 04/08/21 20:00 Dose: 0 unit/min, 0 mls/hr Documented by: Admin: 04/08/21 16:50 Dose: 0.02 unit/min, 6.06 mls/hr Documented by: TUYET Meropenem 1 gm/ Sodium (Chloride) 100 mls @ 200 mls/hr IV Q12H [facility] POTASSIUM CHLORIDE IN WATER (Potassium Cl 10 Meq/100 Ml Juani) 10 meq in 100 mls @ 400 mls/hr IV Q1H [facility] Stop: 04/08/21 20:44 Last Infusion: 04/08/21 18:56 Dose: 0 mls/hr Documented by: Admin: 04/08/21 18:55 Dose: 400 mls/hr Documented by: KEYANALANVICKY Infusion: 04/08/21 18:55 Dose: 400 mls/hr Documented by: KEYANALANVICKY Admin: 04/08/21 18:54 Dose: 400 mls/hr Documented by: Infusion: 04/08/21 18:47 Dose: 400 mls/hr Documented by: KEYANALANVICKY Admin: 04/08/21 18:32 Dose: 400 mls/hr Documented by: Infusion: 04/08/21 16:46 Dose: 400 mls/hr Documented by: Admin: 04/08/21 16:31 Dose: 400 mls/hr Documented by: TUYET Levetiracetam 500 mg/ Sodium (Chloride) 105 mls @ 420 mls/hr IV Q12H [facility] Last Admin: 04/08/21 19:35 Dose: 420 mls/hr Documented by: BALTAZAR Magnesium Sulfate (Magnesium Sulfate) 2 gm in 50 mls @ 25 mls/hr IV NOW ONE Stop: 04/08/21 20:29 Last Infusion: 04/08/21 20:23 Dose: 0 mls/hr Documented by: BALTAZAR Cosigned by: KATELYNN Admin: 04/08/21 17:10 Dose: 25 mls/hr Documented by: TUYET Cosigned by: MAURICE Meropenem 1 gm/ Sodium (Chloride) 100 mls @ 200 mls/hr IV Q8H [facility] Last Admin: 04/08/21 19:47 Dose: 200 mls/hr Documented by: BALTAZAR Epinephrine HCl 2 mg/ Dextrose 250 mls @ 75 mls/hr IV TITRATE ANI; Protocol Last Admin: 04/08/21 20:26 Dose: Not Given Documented by: BALTAZAR Norepinephrine Bitartrate 8 mg (/ Dextrose) 250 mls @ 37.5 mls/hr IV TITRATE [facility] Levothyroxine Sodium (Levothyroxine 88 Mcg Tablet) 88 mcg PO DAILY [facility] Lisinopril (Lisinopril 20 Mg Tablet) 20 mg PO NOW ONE Stop: 04/06/21 18:22 Last Admin: 04/06/21 18:44 Dose: 20 mg Documented by: HUGO Lisinopril (Lisinopril 20 Mg Tablet) 20 mg PO DAILY [facility] Lorazepam (Lorazepam 2 Mg/Ml Inj) 1 mg IV NOW ONE Stop: 04/06/21 18:39 Last Admin: 04/06/21 18:57 Dose: Not Given Documented by: HUGO Lorazepam (Lorazepam 2 Mg/Ml Inj) 0.5 mg IV Q6HR PRN PRN Reason: Spasms Morphine Sulfate (Morphine 2 Mg/Ml Inj) 1 mg IV Q4HR PRN PRN Reason: Pain, Moderate (4-6) Last Admin: 04/08/21 09:00 Dose: 1 mg Documented by: Admin: 04/08/21 04:20 Dose: 1 mg Documented by: JESUS MANUEL Admin: 04/07/21 23:18 Dose: 1 mg Documented by: Admin: 04/07/21 18:49 Dose: 1 mg Documented by: HANK Naloxone HCl (Naloxone 0.4 Mg/Ml Vial) 0.2 mg IV Q2MIN PRN PRN Reason: Opiate Reversal Naloxone HCl (Naloxone 0.4 Mg/Ml Vial) 0.2 mg IV Q2MIN PRN PRN Reason: Opiate Reversal Non-Formulary Medication (Phenobarbital) 97.2 mg PO Q4HR [facility] Non-Formulary Medication (Potassium Chloride) 10 meq PO DAILY [facility] Ondansetron HCl (Ondansetron 4 Mg/2 Ml Inj) 4 mg IV NOW ONE Stop: 04/06/21 16:20 Last Admin: 04/06/21 16:23 Dose: 4 mg Documented by: ANG Ondansetron HCl (Ondansetron 4 Mg/2 Ml Inj) 4 mg IV Q6HR PRN PRN Reason: Nausea And Vomiting Last Admin: 04/08/21 08:54 Dose: 4 mg Documented by: Admin: 04/07/21 23:52 Dose: 4 mg Documented by: Admin: 04/07/21 07:54 Dose: 4 mg Documented by: Admin: 04/07/21 00:45 Dose: 4 mg Documented by: LENARD Pantoprazole Sodium (Pantoprazole 40 Mg Vial) 40 mg IV BID [facility] Last Admin: 04/08/21 08:54 Dose: 40 mg Documented by: Admin: 04/07/21 21:04 Dose: 40 mg Documented by: Admin: 04/07/21 13:18 Dose: 40 mg Documented by: FLACA Phenytoin Sodium (Phenytoin Er 100 Mg Capsule) 200 mg PO DAILY [facility] Prochlorperazine (Prochlorperazine 10 Mg/2 Ml Vial) 5 mg IV Q6HR PRN PRN Reason: Nausea Last Admin: 04/07/21 12:15 Dose: 5 mg Documented by: FLACA Scopolamine (Scopolamine 1 Patch) 1 patch TOP NOW ONE Stop: 04/08/21 20:33 Sodium Bicarbonate (Sodium Bicarb 8.4% Syringe) 50 meq IV NOW ONE Stop: 04/08/21 18:31 Last Admin: 04/08/21 17:15 Dose: 50 meq Documented by: TUYET Sodium Bicarbonate (Sodium Bicarb 8.4% Syringe) 50 meq IV NOW ONE Stop: 04/08/21 18:31 Last Admin: 04/08/21 17:25 Dose: 50 meq Documented by: TUYET Vancomycin HCl (Vancomycin Trough) 1 request [facility] [address] [facility] Stop: 04/10/21 03:31 Vital Signs Vital signs: Vital Signs - 8 hr 04/06/21 15:05 04/06/21 16:28 04/06/21 16:30 Temperature 97.7 F Pulse Rate 72 65 68 Respiratory Rate 22 18 Blood Pressure 177/85 H 194/94 H 200/93 H Pulse Oximetry 93 94 04/06/21 17:10 04/06/21 17:30 04/06/21 17:31 Temperature Pulse Rate 69 65 63 Respiratory Rate 21 23 20 Blood Pressure 201/87 H Pulse Oximetry 94 91 92 04/06/21 18:00 04/06/21 18:23 04/06/21 18:30 Temperature Pulse Rate 67 66 71 Respiratory Rate 18 18 21 Blood Pressure 206/92 H 198/85 H 209/88 H Pulse Oximetry 90 L 93 94 04/06/21 18:44 Temperature Pulse Rate 64 Respiratory Rate Blood Pressure 209/88 H Pulse Oximetry <Sue Thomson, - Last Filed: 04/25/21 08:20> Orders Ordered: Discontinued Medications Acetaminophen (Acetaminophen 325 Mg Tablet) 650 mg PO Q6HR PRN PRN Reason: Fever/Mild Pain (1-3) Last Admin: 04/08/21 01:59 Dose: 650 mg Documented by: KM Acetaminophen (Acetaminophen 650 Mg Supp) 650 mg ND NOW ONE Stop: 04/07/21 09:44 Last Admin: 04/07/21 09:58 Dose: 650 mg Documented by: FLACA Bisacodyl (Bisacodyl 10 Mg Supp) 10 mg ND DAILY PRN PRN Reason: Constipation Chlorhexidine Gluconate (Chlorhexidine Gluconate 15 Ml Cup) 15 ml PO Q6HR [facility] Last Admin: 04/08/21 19:47 Dose: 15 ml Documented by: BALTAZAR Clopidogrel Bisulfate (Clopidogrel 75 Mg Tablet) 75 mg PO DAILY [facility] Last Admin: 04/08/21 17:11 Dose: Not Given Documented by: ANANTH Dextrose (Dextrose 50 % In Water 25 Gm/50 Ml Syringe) 25 gm IV NOW ONE Stop: 04/08/21 18:31 Last Admin: 04/08/21 16:50 Dose: 25 gm Documented by: TUYET Enalaprilat (Enalaprilat 2.5 Mg/ 2 Ml Vial) 0.625 mg IV Q6H [facility] Last Admin: 04/08/21 19:09 Dose: Not Given Documented by: Admin: 04/08/21 17:10 Dose: Not Given Documented by: Admin: 04/08/21 06:07 Dose: 0.625 mg Documented by: Admin: 04/08/21 00:40 Dose: Not Given Documented by: Admin: 04/07/21 18:10 Dose: 0.625 mg Documented by: Admin: 04/07/21 12:22 Dose: 0.625 mg Documented by: Admin: 04/07/21 06:22 Dose: Not Given Documented by: Admin: 04/07/21 00:57 Dose: 0.625 mg Documented by: LENARD Enoxaparin Sodium (Enoxaparin 40 Mg/0.4 Ml Syringe) 40 mg SUBCUT DAILY [facility] Fentanyl (Fentanyl 100 Mcg/2 Ml Inj) 0 mcg IV Q5M PRN PRN Reason: Pain, Moderate (4-6) Furosemide (Furosemide 20 Mg Tablet) 20 mg PO DAILY [facility] Gabapentin (Gabapentin 100 Mg Capsule) 200 mg PO QID [facility] Last Admin: 04/08/21 17:11 Dose: Not Given Documented by: Admin: 04/08/21 17:11 Dose: Not Given Documented by: ANANTH Heparin Sodium (Porcine) (Heparin 5,000 Unit/Ml Vial) 5,000 unit SUBCUT BID [facility] Last Admin: 04/08/21 07:43 Dose: Not Given Documented by: Admin: 04/07/21 21:04 Dose: 5,000 unit Documented by: Admin: 04/07/21 08:31 Dose: 5,000 unit Documented by: FLACA Hydrocortisone (Hydrocortisone 100 Mg/2 Ml Vial) 100 mg IV Q8H [facility] Last Admin: 04/08/21 19:05 Dose: 100 mg Documented by: TUYET Sodium Chloride (Normal Saline 0.9%) 1,000 mls @ 1,000 mls/hr IV BOLUS ONE Stop: 04/06/21 17:51 Last Infusion: 04/06/21 18:32 Dose: 0 mls/hr Documented by: Admin: 04/06/21 17:31 Dose: 1,000 mls/hr Documented by: HUGO Sodium Chloride (Normal Saline 0.9%) 1,000 mls @ 100 mls/hr IV CONT ANI Last Infusion: 04/08/21 20:24 Dose: 10 mls/hr Documented by: Admin: 04/08/21 08:58 Dose: 100 mls/hr Documented by: Infusion: 04/08/21 07:04 Dose: 100 mls/hr Documented by: Admin: 04/07/21 21:04 Dose: 100 mls/hr Documented by: Infusion: 04/07/21 21:04 Dose: 100 mls/hr Documented by: Admin: 04/07/21 11:19 Dose: 100 mls/hr Documented by: Infusion: 04/07/21 10:46 Dose: 100 mls/hr Documented by: Admin: 04/07/21 00:46 Dose: 100 mls/hr Documented by: LENARD Levetiracetam 500 mg/ Sodium (Chloride) 105 mls @ 420 mls/hr IV Q12H [facility] Last Admin: 04/08/21 18:56 Dose: Not Given Documented by: Infusion: 04/08/21 00:00 Dose: 0 mls/hr Documented by: Admin: 04/07/21 23:38 Dose: 420 mls/hr Documented by: Infusion: 04/07/21 19:09 Dose: 0 mls/hr Documented by: Admin: 04/07/21 12:18 Dose: 420 mls/hr Documented by: Infusion: 04/07/21 06:22 Dose: 0 mls/hr Documented by: Admin: 04/07/21 00:46 Dose: 420 mls/hr Documented by: LENARD Meropenem 2 gm/ Sodium (Chloride) 100 mls @ 200 mls/hr IV Q8H [facility] Last Admin: 04/07/21 18:07 Dose: Not Given Documented by: FLACA Meropenem 2 gm/ Sodium (Chloride) 100 mls @ 200 mls/hr IV Q12H [facility] Last Infusion: 04/08/21 06:00 Dose: 0 mls/hr Documented by: Admin: 04/08/21 05:24 Dose: 200 mls/hr Documented by: Infusion: 04/07/21 19:09 Dose: 0 mls/hr Documented by: Admin: 04/07/21 18:09 Dose: 200 mls/hr Documented by: FLACA Lactated Ringer's (Lactated Ringers) 1,000 mls @ 42 mls/hr IV NOW ONE Stop: 04/09/21 09:44 Last Admin: 04/08/21 13:06 Dose: 42 mls/hr Documented by: Infusion: 04/08/21 13:06 Dose: 42 mls/hr Documented by: Admin: 04/08/21 09:57 Dose: 42 mls/hr Documented by: IRAIDA Aztreonam 1 gm/ Dextrose 50 mls @ 100 mls/hr IV Q8HR [facility] Last Infusion: 04/08/21 14:35 Dose: 0 mls/hr Documented by: Admin: 04/08/21 14:03 Dose: 100 mls/hr Documented by: MISAEL Metronidazole (Flagyl) 500 mg in 100 mls @ 100 mls/hr IV Q8H [facility] Last Infusion: 04/08/21 15:45 Dose: 0 mls/hr Documented by: Admin: 04/08/21 14:46 Dose: 100 mls/hr Documented by: MISAEL POTASSIUM CHLORIDE IN WATER (Potassium Cl 10 Meq/100 Ml Juani) 10 meq in 100 mls @ 100 mls/hr IV Q1H [facility] Stop: 04/08/21 12:44 Last Admin: 04/08/21 17:13 Dose: Not Given Documented by: Admin: 04/08/21 17:13 Dose: Not Given Documented by: ANANTH Piperacillin Sod/Tazobactam (Sod 3.375 gm/ Sodium Chloride) 100 mls @ 25 mls/hr IV NOW ONE Stop: 04/08/21 11:15 Last Infusion: 04/08/21 15:10 Dose: 0 mls/hr Documented by: Admin: 04/08/21 11:07 Dose: 25 mls/hr Documented by: KAM Vancomycin HCl (Vancomycin) 1,000 mg in 200 mls @ 200 mls/hr IV Q12H [facility] Last Infusion: 04/08/21 19:22 Dose: 0 mls/hr Documented by: Admin: 04/08/21 18:00 Dose: 200 mls/hr Documented by: HANK Propofol (Propofol) 1,000 mg in 100 mls @ 2.22 mls/hr IV TITRATE ANI; Protocol Last Titration: 04/08/21 20:24 Dose: 0 mcg/kg/min, 0 mls/hr Documented by: Titration: 04/08/21 18:58 Dose: 25 mcg/kg/min, 11.1 mls/hr Documented by: Admin: 04/08/21 15:10 Dose: 10 mcg/kg/min, 4.44 mls/hr Documented by: MISAEL Fentanyl 1,000 mcg/ Dextrose 250 mls @ 12.95 mls/hr IV TITRATE ANI; Protocol Last Admin: 04/08/21 15:10 Dose: 0.31 mcg/kg/hr, 5.735 mls/hr Documented by: MISAEL NOREPINEPHRINE BITARTRATE/D5W (Levophed) 4 mg in 250 mls @ 30 mls/hr IV TITRATE ANI; Protocol Last Titration: 04/08/21 20:00 Dose: 0 mcg/min, 0 mls/hr Documented by: Admin: 04/08/21 15:12 Dose: 2 mcg/min, 7.5 mls/hr Documented by: MISAEL Piperacillin Sod/Tazobactam (Sod 3.375 gm/ Sodium Chloride) 100 mls @ 25 mls/hr IV Q8H ANI Epinephrine HCl 1 mg/ Dextrose 251 mls @ 15.06 mls/hr IV TITRATE ANI; Protocol Last Admin: 04/08/21 16:20 Dose: 1 mcg/min, 15.06 mls/hr Documented by: TUYET Vasopressin 20 unit/ Sodium (Chloride) 101 mls @ 9.09 mls/hr IV TITRATE ANI; Protocol Last Titration: 04/08/21 20:00 Dose: 0 unit/min, 0 mls/hr Documented by: Admin: 04/08/21 16:50 Dose: 0.02 unit/min, 6.06 mls/hr Documented by: TBLANTO Meropenem 1 gm/ Sodium (Chloride) 100 mls @ 200 mls/hr IV Q12H ANI POTASSIUM CHLORIDE IN WATER (Potassium Cl 10 Meq/100 Ml Juani) 10 meq in 100 mls @ 400 mls/hr IV Q1H ANI Stop: 04/08/21 20:44 Last Infusion: 04/08/21 18:56 Dose: 0 mls/hr Documented by: Admin: 04/08/21 18:55 Dose: 400 mls/hr Documented by: Infusion: 04/08/21 18:55 Dose: 400 mls/hr Documented by: Admin: 04/08/21 18:54 Dose: 400 mls/hr Documented by: Infusion: 04/08/21 18:47 Dose: 400 mls/hr Documented by: Admin: 04/08/21 18:32 Dose: 400 mls/hr Documented by: Infusion: 04/08/21 16:46 Dose: 400 mls/hr Documented by: Admin: 04/08/21 16:31 Dose: 400 mls/hr Documented by: TUYET Levetiracetam 500 mg/ Sodium (Chloride) 105 mls @ 420 mls/hr IV Q12H ANI Last Admin: 04/08/21 19:35 Dose: 420 mls/hr Documented by: BALTAZAR Magnesium Sulfate (Magnesium Sulfate) 2 gm in 50 mls @ 25 mls/hr IV NOW ONE Stop: 04/08/21 20:29 Last Infusion: 04/08/21 20:23 Dose: 0 mls/hr Documented by: BALTAZAR Cosigned by: KATELYNN Admin: 04/08/21 17:10 Dose: 25 mls/hr Documented by: TUYET Cosigned by: MAURICE Meropenem 1 gm/ Sodium (Chloride) 100 mls @ 200 mls/hr IV Q8H ANI Last Admin: 04/08/21 19:47 Dose: 200 mls/hr Documented by: BALTAZAR Epinephrine HCl 2 mg/ Dextrose 250 mls @ 75 mls/hr IV TITRATE ANI; Protocol Last Admin: 04/08/21 20:26 Dose: Not Given Documented by: BALTAZAR Norepinephrine Bitartrate 8 mg (/ Dextrose) 250 mls @ 37.5 mls/hr IV TITRATE ANI Levothyroxine Sodium (Levothyroxine 88 Mcg Tablet) 88 mcg PO DAILY [facility] Lisinopril (Lisinopril 20 Mg Tablet) 20 mg PO NOW ONE Stop: 04/06/21 18:22 Last Admin: 04/06/21 18:44 Dose: 20 mg Documented by: HUGO Lisinopril (Lisinopril 20 Mg Tablet) 20 mg PO DAILY [facility] Lorazepam (Lorazepam 2 Mg/Ml Inj) 1 mg IV NOW ONE Stop: 04/06/21 18:39 Last Admin: 04/06/21 18:57 Dose: Not Given Documented by: HUGO Lorazepam (Lorazepam 2 Mg/Ml Inj) 0.5 mg IV Q6HR PRN PRN Reason: Spasms Morphine Sulfate (Morphine 2 Mg/Ml Inj) 1 mg IV Q4HR PRN PRN Reason: Pain, Moderate (4-6) Last Admin: 04/08/21 09:00 Dose: 1 mg Documented by: Admin: 04/08/21 04:20 Dose: 1 mg Documented by: JESUS MANUEL Admin: 04/07/21 23:18 Dose: 1 mg Documented by: Admin: 04/07/21 18:49 Dose: 1 mg Documented by: HANK Naloxone HCl (Naloxone 0.4 Mg/Ml Vial) 0.2 mg IV Q2MIN PRN PRN Reason: Opiate Reversal Naloxone HCl (Naloxone 0.4 Mg/Ml Vial) 0.2 mg IV Q2MIN PRN PRN Reason: Opiate Reversal Non-Formulary Medication (Phenobarbital) 97.2 mg PO Q4HR [facility] Non-Formulary Medication (Potassium Chloride) 10 meq PO DAILY [facility] Ondansetron HCl (Ondansetron 4 Mg/2 Ml Inj) 4 mg IV NOW ONE Stop: 04/06/21 16:20 Last Admin: 04/06/21 16:23 Dose: 4 mg Documented by: ANG Ondansetron HCl (Ondansetron 4 Mg/2 Ml Inj) 4 mg IV Q6HR PRN PRN Reason: Nausea And Vomiting Last Admin: 04/08/21 08:54 Dose: 4 mg Documented by: Admin: 04/07/21 23:52 Dose: 4 mg Documented by: Admin: 04/07/21 07:54 Dose: 4 mg Documented by: Admin: 04/07/21 00:45 Dose: 4 mg Documented by: LENARD Pantoprazole Sodium (Pantoprazole 40 Mg Vial) 40 mg IV BID [facility] Last Admin: 04/08/21 08:54 Dose: 40 mg Documented by: Admin: 04/07/21 21:04 Dose: 40 mg Documented by: Admin: 04/07/21 13:18 Dose: 40 mg Documented by: FLACA Phenytoin Sodium (Phenytoin Er 100 Mg Capsule) 200 mg PO DAILY [facility] Prochlorperazine (Prochlorperazine 10 Mg/2 Ml Vial) 5 mg IV Q6HR PRN PRN Reason: Nausea Last Admin: 04/07/21 12:15 Dose: 5 mg Documented by: FLACA Scopolamine (Scopolamine 1 Patch) 1 patch TOP NOW ONE Stop: 04/08/21 20:33 Sodium Bicarbonate (Sodium Bicarb 8.4% Syringe) 50 meq IV NOW ONE Stop: 04/08/21 18:31 Last Admin: 04/08/21 17:15 Dose: 50 meq Documented by: TUYET Sodium Bicarbonate (Sodium Bicarb 8.4% Syringe) 50 meq IV NOW ONE Stop: 04/08/21 18:31 Last Admin: 04/08/21 17:25 Dose: 50 meq Documented by: TUYET Vancomycin HCl (Vancomycin Trough) 1 request [facility] [address] [facility] Stop: 04/10/21 03:31 Vital Signs Vital signs: Vital Signs - 8 hr 04/06/21 15:05 04/06/21 16:28 04/06/21 16:30 Temperature 97.7 F Pulse Rate 72 65 68 Respiratory Rate 22 18 Blood Pressure 177/85 H 194/94 H 200/93 H Pulse Oximetry 93 94 04/06/21 17:10 04/06/21 17:30 04/06/21 17:31 Temperature Pulse Rate 69 65 63 Respiratory Rate 21 23 20 Blood Pressure 201/87 H Pulse Oximetry 94 91 92 04/06/21 18:00 04/06/21 18:23 04/06/21 18:30 Temperature Pulse Rate 67 66 71 Respiratory Rate 18 18 21 Blood Pressure 206/92 H 198/85 H 209/88 H Pulse Oximetry 90 L 93 94 04/06/21 18:44 Temperature Pulse Rate 64 Respiratory Rate Blood Pressure 209/88 H Pulse Oximetry MDM - Nausea/Vomiting/Diarrhea <Rasheed Cobos PA-C - Last Filed: 04/06/21 20:15> Lab Data Lab results narrative: Labs within normal limits. UA negative for UTI Result diagrams: 04/08/21 16:47 04/08/21 16:47 Labs: Lab Results 04/06/21 04/06/21 04/06/21 Range/Units 15:17 15:17 15:17 WBC 8.7 (4.5-11.0) X10^3/uL RBC 5.17 (4.0-5.2) X10^6/uL Hgb 15.7 (12.0-16.0) g/dL Hct 46.4 H (36-46) % MCV 89.6 (80-100) fL MCH 30.3 (26-34) PG MCHC 33.8 (30-36) % RDW 14.0 (11.6-14.8) % Plt Count 318 (150-400) X10^3/uL Neut % (Auto) 84.6 H (50-75) % Lymph % (Auto) 10.0 L (25-40) % [place] % (Auto) 4.9 (3-14) % Eos % (Auto) 0.1 L (2-4) % Baso % (Auto) 0.4 (0-2) % Neut # (Auto) 7300 H (6221-6233) /uL Lymph # (Auto) 900 L (1917-1508) /uL [place] # (Auto) 400 (0-900) /uL Eos # (Auto) 0 (0-450) /uL Baso # (Auto) 0 (0-100) /uL Sodium 134 L (137-145) mmol/L Potassium 3.8 (3.4-5.1) mmol/L Chloride 94 L (98-107) mmol/L Carbon Dioxide 31 (22-32) mmol/L BUN 11 (7-17) mg/dL Creatinine 0.66 (0.52-1.04) mg/dL Estimated GFR > 60.0 (>60) mL/min BUN/Creatinine Ratio 16.7 (6-22) Glucose 139 H (80-110) mg/dL Lactate (0.7-2.1) mmol/L Calcium 10.0 (8.4-10.2) mg/dL Total Bilirubin 0.9 (0.2-1.3) mg/dL AST 38 H (14-36) IU/L ALT 24 (<35) IU/L Alkaline Phosphatase 186 H (38-126) U/L Troponin I < 0.012 (0.01-0.034) ng/mL NT-Pro-B Natriuret Pep 570 H (<450) pg/mL Total Protein 9.4 H (6.3-8.2) g/dL Albumin 5.0 (3.5-5.0) g/dL Globulin 4.4 H (1.7-4.1) g/dL Albumin/Globulin Ratio 1.1 (1.0-2.8) Lipase 53 (23-300) U/L Urine RBC (0-5/HPF) Urine WBC (0-5/HPF) Ur Squamous Epith Cells (0-5/HPF) Urine Bacteria (None) Ur Culture Indicated? Phenytoin (10-20) ug/mL SARS-CoV-2 (PCR) (Negative) 04/06/21 04/06/21 04/06/21 Range/Units 15:17 16:55 16:59 WBC (4.5-11.0) X10^3/uL RBC (4.0-5.2) X10^6/uL Hgb (12.0-16.0) g/dL Hct (36-46) % MCV (80-100) fL MCH (26-34) PG MCHC (30-36) % RDW (11.6-14.8) % Plt Count (150-400) X10^3/uL Neut % (Auto) (50-75) % Lymph % (Auto) (25-40) % [place] % (Auto) (3-14) % Eos % (Auto) (2-4) % Baso % (Auto) (0-2) % Neut # (Auto) (3861-5476) /uL Lymph # (Auto) (9471-0789) /uL [place] # (Auto) (0-900) /uL Eos # (Auto) (0-450) /uL Baso # (Auto) (0-100) /uL Sodium (137-145) mmol/L Potassium (3.4-5.1) mmol/L Chloride (98-107) mmol/L Carbon Dioxide (22-32) mmol/L BUN (7-17) mg/dL Creatinine (0.52-1.04) mg/dL Estimated GFR (>60) mL/min BUN/Creatinine Ratio (6-22) Glucose (80-110) mg/dL Lactate 1.9 (0.7-2.1) mmol/L Calcium (8.4-10.2) mg/dL Total Bilirubin (0.2-1.3) mg/dL AST (14-36) IU/L ALT (<35) IU/L Alkaline Phosphatase (38-126) U/L Troponin I (0.01-0.034) ng/mL NT-Pro-B Natriuret Pep (<450) pg/mL Total Protein (6.3-8.2) g/dL Albumin (3.5-5.0) g/dL Globulin (1.7-4.1) g/dL Albumin/Globulin Ratio (1.0-2.8) Lipase (23-300) U/L Urine RBC (0-5/HPF) Urine WBC (0-5/HPF) Ur Squamous Epith Cells (0-5/HPF) Urine Bacteria (None) Ur Culture Indicated? Phenytoin 5.4 L (10-20) ug/mL SARS-CoV-2 (PCR) Negative (Negative) 04/06/21 Range/Units 18:46 WBC (4.5-11.0) X10^3/uL RBC (4.0-5.2) X10^6/uL Hgb (12.0-16.0) g/dL Hct (36-46) % MCV (80-100) fL MCH (26-34) PG MCHC (30-36) % RDW (11.6-14.8) % Plt Count (150-400) X10^3/uL Neut % (Auto) (50-75) % Lymph % (Auto) (25-40) % [place] % (Auto) (3-14) % Eos % (Auto) (2-4) % Baso % (Auto) (0-2) % Neut # (Auto) (4282-5164) /uL Lymph # (Auto) (8105-9196) /uL [place] # (Auto) (0-900) /uL Eos # (Auto) (0-450) /uL Baso # (Auto) (0-100) /uL Sodium (137-145) mmol/L Potassium (3.4-5.1) mmol/L Chloride (98-107) mmol/L Carbon Dioxide (22-32) mmol/L BUN (7-17) mg/dL Creatinine (0.52-1.04) mg/dL Estimated GFR (>60) mL/min BUN/Creatinine Ratio (6-22) Glucose (80-110) mg/dL Lactate (0.7-2.1) mmol/L Calcium (8.4-10.2) mg/dL Total Bilirubin (0.2-1.3) mg/dL AST (14-36) IU/L ALT (<35) IU/L Alkaline Phosphatase (38-126) U/L Troponin I (0.01-0.034) ng/mL NT-Pro-B Natriuret Pep (<450) pg/mL Total Protein (6.3-8.2) g/dL Albumin (3.5-5.0) g/dL Globulin (1.7-4.1) g/dL Albumin/Globulin Ratio (1.0-2.8) Lipase (23-300) U/L Urine RBC 1-5/hpf D (0-5/HPF) Urine WBC 1-5/hpf (0-5/HPF) Ur Squamous Epith Cells 1-5 /hpf (0-5/HPF) Urine Bacteria Occasional (0-1) (None) Ur Culture Indicated? Cult not indicated Phenytoin (10-20) ug/mL SARS-CoV-2 (PCR) (Negative) Urine Dip Bedside Urine Glucose Negative Bedside Urine Bilirubin - Negative Bedside Urine Ketone - Negative Urine Specific [place] 1.015 Bedside Urine Occult Blood - Negative Bedside Urine pH 6.0 Bedside Urine Protein +/- 15 Bedside Urine Urobilinogen - Negative Bedside Urine Nitrite - Negative Bedside Urine Leukocytes - Negative Esterase Imaging Data CT scan - abdomen/pelvis: Radiologist's Impression: PROCEDURE:? CT ABDOMEN PELVIS W CON ? INDICATIONS:? ?Bowel obstruction ? TECHNIQUE:? After the administration of intravenous contrast, axial sections acquired from the lung bases to the pubic symphysis.? Coronal and sagittal reformats were performed.? For radiation dose reduction, the following was used:? automated exposure control, adjustment of mA and/or kV according to patient size.? ? COMPARISON:? [facility], CT, CT CHEST ABDOMEN PELVIS WITH CONTRAST, 03/07/2021, 13:12. ? FINDINGS:? Image quality:? Excellent.? ? Lung bases:? Large paraesophageal hiatal hernia is noted which contains most of the stomach and portions of the pancreas. Heart:? No significant findings. ? ABDOMEN: Liver:? Focal biliary tree dilatation noted in the medial segment of the left lobe liver which is stable compared to the prior exam. Gallbladder:? Unremarkable.? ? Biliary ducts:? Unremarkable.? ? Pancreas:? Unremarkable.? ? Spleen:? Unremarkable.? ? Adrenal Glands:? Unremarkable.? ? Kidneys and Ureters:? Bilateral renal cysts are stable. ? Stomach and Bowel:? Numerous scattered diverticuli noted in the sigmoid colon.? Anastomotic sutures noted in the colon which are not identified in the prior study. Peritoneum:? No abnormal intraperitoneal fluid.? No free air.? ? Ventral Wall: ? Large ventral wall hernia is noted which contains multiple loops of large and small bowel.? Several of the herniated loops of small bowel demonstrates circumferential wall thickening in there is mild inflammation and fluid within the hernia. Abdominal Nodes:? No retroperitoneal or mesenteric adenopathy by size criteria.? Vessels:? Aorta and inferior vena cava are normal in size.? ? PELVIS: Pelvic Organs:? Unremarkable.? ? Bladder:? Small cystocele in the base of the bladder is stable. Pelvic Nodes: No enlarged lymph nodes.? Miscellaneous: No hernias are seen. ? ? ? Bones:? Severe convex left thoracolumbar spine scoliosis.? Multilevel degenerative disc disease.? Chronic appearing T10 compression fracture.? No acute compression fracture. ? ? IMPRESSION:? ? 1. Large paraesophageal hiatal hernia which contains majority of the stomach and large portion of the pancreas. ? 2. Large ventral wall hernia which contains loops of large and small bowel.? Several of the herniated loops of small bowel of circumferential wall thickening with adjacent inflammatory changes in free fluid concerning for bowel ischemia/strangulation.? Please correlate with clinical findings. ? 3. Intrahepatic biliary duct dilatation involving the medial segment of the left lobe which is stable compared to the prior exam. ? 4. Postsurgical changes involving the colon which are not identified in prior study.? Please correlate with clinical data. ? 5. Colonic diverticulosis without evidence of diverticulitis. ? 6. Small cystocele involving the base of the urinary bladder. ? ? ? Chest x-ray: Radiologist's Impression: PROCEDURE:? XR CHEST 1V ? INDICATIONS:? nausea and vomiting ? TECHNIQUE:? One view of the chest was acquired.? ? COMPARISON:? [facility], CR, XR CHEST 1V, 12/31/2020, 10:30.? [facility], CR, XR CHEST 2 VIEWS, 03/18/2021, 13:25. ? FINDINGS:? ? Surgical changes and devices:? None.? ? Lungs and pleura:? Lungs are clear.? No pleural effusions or pneumothorax.? Elevation left hemidiaphragm stable compared to prior examination.? ? Mediastinum:? Mediastinal contours appear normal.? Heart size is normal.? ? Bones and chest wall:? No suspicious bony lesions.? Overlying soft tissues a ppear unremarkable.? ? IMPRESSION:? No acute cardiopulmonary disease process. ? ? Dictated by: Neida Hudson MD, PhD on 04/06/2021 at 16:21 ? ? Approved by: Neida Hudson MD, PhD on 04/06/2021 at 16:21 ? ECG Data Interpretation: Normal sinus rhythm, no ST-T changes, no axis the MDM Narrative Medical decision making narrative: 85-year-old female with past medical history hypothyroidism, acid reflux, hyperlipidemia, hypertension, paroxysmal AFib, epilepsy, colon cancer, recent colectomy presents to the ED with 2 days of nausea, vomiting. Concern for ACS versus bowel obstruction versus UTI versus pyelonephritis versus diverticulitis versus dehydration. Will order labs, chest x-ray, EKG, troponin, lactate, COVID-19 test, CT abdomen pelvis. Will give Zofran and IV fluids for symptoms. Will reassess. <Sue Thomson, DO - Last Filed: 04/25/21 08:20> Lab Data Labs: Lab Results 04/06/21 04/06/21 04/06/21 Range/Units 15:17 15:17 15:17 WBC 8.7 (4.5-11.0) X10^3/uL RBC 5.17 (4.0-5.2) X10^6/uL Hgb 15.7 (12.0-16.0) g/dL Hct 46.4 H (36-46) % MCV 89.6 (80-100) fL MCH 30.3 (26-34) PG MCHC 33.8 (30-36) % RDW 14.0 (11.6-14.8) % Plt Count 318 (150-400) X10^3/uL Neut % (Auto) 84.6 H (50-75) % Lymph % (Auto) 10.0 L (25-40) % [place] % (Auto) 4.9 (3-14) % Eos % (Auto) 0.1 L (2-4) % Baso % (Auto) 0.4 (0-2) % Neut # (Auto) 7300 H (5539-9154) /uL Lymph # (Auto) 900 L (4143-3658) /uL [place] # (Auto) 400 (0-900) /uL Eos # (Auto) 0 (0-450) /uL Baso # (Auto) 0 (0-100) /uL Sodium 134 L (137-145) mmol/L Potassium 3.8 (3.4-5.1) mmol/L Chloride 94 L (98-107) mmol/L Carbon Dioxide 31 (22-32) mmol/L BUN 11 (7-17) mg/dL Creatinine 0.66 (0.52-1.04) mg/dL Estimated GFR > 60.0 (>60) mL/min BUN/Creatinine Ratio 16.7 (6-22) Glucose 139 H (80-110) mg/dL Lactate (0.7-2.1) mmol/L Calcium 10.0 (8.4-10.2) mg/dL Total Bilirubin 0.9 (0.2-1.3) mg/dL AST 38 H (14-36) IU/L ALT 24 (<35) IU/L Alkaline Phosphatase 186 H (38-126) U/L Troponin I < 0.012 (0.01-0.034) ng/mL NT-Pro-B Natriuret Pep 570 H (<450) pg/mL Total Protein 9.4 H (6.3-8.2) g/dL Albumin 5.0 (3.5-5.0) g/dL Globulin 4.4 H (1.7-4.1) g/dL Albumin/Globulin Ratio 1.1 (1.0-2.8) Lipase 53 (23-300) U/L Urine RBC (0-5/HPF) Urine WBC (0-5/HPF) Ur Squamous Epith Cells (0-5/HPF) Urine Bacteria (None) Ur Culture Indicated? Phenytoin (10-20) ug/mL SARS-CoV-2 (PCR) (Negative) 04/06/21 04/06/21 04/06/21 Range/Units 15:17 16:55 16:59 WBC (4.5-11.0) X10^3/uL RBC (4.0-5.2) X10^6/uL Hgb (12.0-16.0) g/dL Hct (36-46) % MCV (80-100) fL MCH (26-34) PG MCHC (30-36) % RDW (11.6-14.8) % Plt Count (150-400) X10^3/uL Neut % (Auto) (50-75) % Lymph % (Auto) (25-40) % [place] % (Auto) (3-14) % Eos % (Auto) (2-4) % Baso % (Auto) (0-2) % Neut # (Auto) (7999-2307) /uL Lymph # (Auto) (1510-4164) /uL [place] # (Auto) (0-900) /uL Eos # (Auto) (0-450) /uL Baso # (Auto) (0-100) /uL Sodium (137-145) mmol/L Potassium (3.4-5.1) mmol/L Chloride (98-107) mmol/L Carbon Dioxide (22-32) mmol/L BUN (7-17) mg/dL Creatinine (0.52-1.04) mg/dL Estimated GFR (>60) mL/min BUN/Creatinine Ratio (6-22) Glucose (80-110) mg/dL Lactate 1.9 (0.7-2.1) mmol/L Calcium (8.4-10.2) mg/dL Total Bilirubin (0.2-1.3) mg/dL AST (14-36) IU/L ALT (<35) IU/L Alkaline Phosphatase (38-126) U/L Troponin I (0.01-0.034) ng/mL NT-Pro-B Natriuret Pep (<450) pg/mL Total Protein (6.3-8.2) g/dL Albumin (3.5-5.0) g/dL Globulin (1.7-4.1) g/dL Albumin/Globulin Ratio (1.0-2.8) Lipase (23-300) U/L Urine RBC (0-5/HPF) Urine WBC (0-5/HPF) Ur Squamous Epith Cells (0-5/HPF) Urine Bacteria (None) Ur Culture Indicated? Phenytoin 5.4 L (10-20) ug/mL SARS-CoV-2 (PCR) Negative (Negative) 04/06/21 Range/Units 18:46 WBC (4.5-11.0) X10^3/uL RBC (4.0-5.2) X10^6/uL Hgb (12.0-16.0) g/dL Hct (36-46) % MCV (80-100) fL MCH (26-34) PG MCHC (30-36) % RDW (11.6-14.8) % Plt Count (150-400) X10^3/uL Neut % (Auto) (50-75) % Lymph % (Auto) (25-40) % [place] % (Auto) (3-14) % Eos % (Auto) (2-4) % Baso % (Auto) (0-2) % Neut # (Auto) (0947-8218) /uL Lymph # (Auto) (3657-2960) /uL [place] # (Auto) (0-900) /uL Eos # (Auto) (0-450) /uL Baso # (Auto) (0-100) /uL Sodium (137-145) mmol/L Potassium (3.4-5.1) mmol/L Chloride (98-107) mmol/L Carbon Dioxide (22-32) mmol/L BUN (7-17) mg/dL Creatinine (0.52-1.04) mg/dL Estimated GFR (>60) mL/min BUN/Creatinine Ratio (6-22) Glucose (80-110) mg/dL Lactate (0.7-2.1) mmol/L Calcium (8.4-10.2) mg/dL Total Bilirubin (0.2-1.3) mg/dL AST (14-36) IU/L ALT (<35) IU/L Alkaline Phosphatase (38-126) U/L Troponin I (0.01-0.034) ng/mL NT-Pro-B Natriuret Pep (<450) pg/mL Total Protein (6.3-8.2) g/dL Albumin (3.5-5.0) g/dL Globulin (1.7-4.1) g/dL Albumin/Globulin Ratio (1.0-2.8) Lipase (23-300) U/L Urine RBC 1-5/hpf D (0-5/HPF) Urine WBC 1-5/hpf (0-5/HPF) Ur Squamous Epith Cells 1-5 /hpf (0-5/HPF) Urine Bacteria Occasional (0-1) (None) Ur Culture Indicated? Cult not indicated Phenytoin (10-20) ug/mL SARS-CoV-2 (PCR) (Negative) Urine Dip Bedside Urine Glucose Negative Bedside Urine Bilirubin - Negative Bedside Urine Ketone - Negative Urine Specific [place] 1.015 Bedside Urine Occult Blood - Negative Bedside Urine pH 6.0 Bedside Urine Protein +/- 15 Bedside Urine Urobilinogen - Negative Bedside Urine Nitrite - Negative Bedside Urine Leukocytes - Negative Esterase Discharge Plan Departure Patient Disposition: Admitted As Inpatient Clinical Impression: Small bowel obstruction Admit Date/Time: 04/06/21 20:42 Admit Provider: Saranya Johnson <Sue Thomson DO - Last Filed: 04/25/21 08:20> Cosign ED Attending Cosignature Attestation: I was immediately available in the department for consultation. Documentation has been reviewed.
[2021-04-06] MEDS: ONDANSETRON 4 MG/2 ML INJ IV (16:23)
--- NOTE | 2021-04-06 16:40 | PC.NURSE ---
pt arrived wearing an abdominal binder. states she did not take her medication for her bp today
--- NOTE | 2021-04-06 16:50 | DI.CT.S_ITS ---
PROCEDURE: CT ABDOMEN PELVIS W CON INDICATIONS: ?Bowel obstruction TECHNIQUE: After the administration of intravenous contrast, axial sections acquired from the lung bases to the pubic symphysis. Coronal and sagittal reformats were performed. For radiation dose reduction, the following was used: automated exposure control, adjustment of mA and/or kV according to patient size. COMPARISON: [facility], CT, CT CHEST ABDOMEN PELVIS WITH CONTRAST, 03/07/2021, 13:12. FINDINGS: Image quality: Excellent. Lung bases: Large paraesophageal hiatal hernia is noted which contains most of the stomach and portions of the pancreas. Heart: No significant findings. ABDOMEN: Liver: Focal biliary tree dilatation noted in the medial segment of the left lobe liver which is stable compared to the prior exam. Gallbladder: Unremarkable. Biliary ducts: Unremarkable. Pancreas: Unremarkable. Spleen: Unremarkable. Adrenal Glands: Unremarkable. Kidneys and Ureters: Bilateral renal cysts are stable. Stomach and Bowel: Numerous scattered diverticuli noted in the sigmoid colon. Anastomotic sutures noted in the colon which are not identified in the prior study. Peritoneum: No abnormal intraperitoneal fluid. No free air. Ventral Wall: Large ventral wall hernia is noted which contains multiple loops of large and small bowel. Several of the herniated loops of small bowel demonstrates circumferential wall thickening in there is mild inflammation and fluid within the hernia. Abdominal Nodes: No retroperitoneal or mesenteric adenopathy by size criteria. Vessels: Aorta and inferior vena cava are normal in size. PELVIS: Pelvic Organs: Unremarkable. Bladder: Small cystocele in the base of the bladder is stable. Pelvic Nodes: No enlarged lymph nodes. Miscellaneous: No hernias are seen. Bones: Severe convex left thoracolumbar spine scoliosis. Multilevel degenerative disc disease. Chronic appearing T10 compression fracture. No acute compression fracture. IMPRESSION: 1. Large paraesophageal hiatal hernia which contains majority of the stomach and large portion of the pancreas. 2. Large ventral wall hernia which contains loops of large and small bowel. Several of the herniated loops of small bowel of circumferential wall thickening with adjacent inflammatory changes in free fluid concerning for bowel ischemia/strangulation. Please correlate with clinical findings. 3. Intrahepatic biliary duct dilatation involving the medial segment of the left lobe which is stable compared to the prior exam. 4. Postsurgical changes involving the colon which are not identified in prior study. Please correlate with clinical data. 5. Colonic diverticulosis without evidence of diverticulitis. 6. Small cystocele involving the base of the urinary bladder. Dictated by: Neida Hudson MD, PhD on 04/06/2021 at 16:23 Approved by: Neida Hudson MD, PhD on 04/06/2021 at 16:40
--- NOTE | 2021-04-06 16:50 | DI.RAD.S_ITS ---
PROCEDURE: XR CHEST 1V INDICATIONS: nausea and vomiting TECHNIQUE: One view of the chest was acquired. COMPARISON: [facility], CR, XR CHEST 1V, 12/31/2020, 10:30. [facility], CR, XR CHEST 2 VIEWS, 03/18/2021, 13:25. FINDINGS: Surgical changes and devices: None. Lungs and pleura: Lungs are clear. No pleural effusions or pneumothorax. Elevation left hemidiaphragm stable compared to prior examination. Mediastinum: Mediastinal contours appear normal. Heart size is normal. Bones and chest wall: No suspicious bony lesions. Overlying soft tissues appear unremarkable. IMPRESSION: No acute cardiopulmonary disease process. Dictated by: Neida Hudson MD, PhD on 04/06/2021 at 16:21 Approved by: Neida Hudson MD, PhD on 04/06/2021 at 16:21
[2021-04-06 17:10] LABS: Lactate (Lactic Acid) 1.9 mmol/L (0.7-2.1)
[2021-04-06 17:11] LABS: NT-proBNP (BNP-Adult 18+) 570 pg/mL (<450); Troponin I < 0.012 ng/mL (0.01-0.034)
[2021-04-06 17:31] LABS: COVID19 -Nasal RAPID Negative (Negative)
[2021-04-06] MEDS: SODIUM CHLORIDE 0.9% 1,000 ML 1000 ML IV (17:31)
[2021-04-06 17:53] LABS: Phenytoin / Dilantin 5.4 ug/mL (10-20)
[2021-04-06] MEDS: lisinopriL 20 MG TABLET PO (18:44)
[2021-04-06 20:23] LABS: Bacteria Urine Occasional (0-1); Culture Indicated Urine Cult Not Indicated; RBC Urine 1-5/HPF (0-5/HPF); Squamous Epithelial Cell Urine 1-5 /HPF (0-5/HPF); WBC Urine 1-5/HPF (0-5/HPF)
--- NOTE | 2021-04-06 21:28 | P.CONS_ITS ---
History of Present Illness Consult details Date Patient Seen: 04/06/21 Time Patient Seen: 20:30 Chief complaint: Dry heaving, 2 seizures, pain in back Reason for consult: SBO Requesting provider: Rasheed Cobos Narrative: Patient began feeling unwell on Monday. Nausea, dry heaves, no BM and later abdominal pain. Had Robotic Right colectomy 2 weeks ago with Shoaib Dumont for stage 3 colon cancer. Has pre existing ventral hernia, large hiatal hernia and cystocele. Work up in ED shows no lactic acidosis, Htn and tachycardia. CT scan concerning for SBO and small bowel edema in the ventral hernia w concern for ischemic bowel. Meds Home Medications and Allergies Home Medications Medication Instructions Recorded Confirmed Type clopidogrel 75 mg tablet 75 mg PO DAILY 05/15/18 02/23/21 History gabapentin 100 mg capsule 200 mg PO QID 05/15/18 02/23/21 History levothyroxine 88 mcg tablet 88 mcg PO DAILY 05/15/18 02/23/21 History lisinopril 20 mg tablet 20 mg PO DAILY 05/15/18 02/23/21 History phenobarbital 97.2 mg tablet 97.2 mg PO DAILY 05/15/18 02/23/21 History phenytoin sodium extended 100 mg 100 mg PO DAILY 05/15/18 02/23/21 History capsule furosemide 20 mg tablet 20 mg PO DAILY 01/19/21 02/23/21 History potassium chloride 10 mEq 10 meq PO DAILY 01/19/21 02/23/21 History tablet,extended release(part/cryst) Allergies Allergy/AdvReac Type Severity Reaction Status Date / Time tramadol Allergy Severe Seizure Verified 02/23/21 13:25 Penicillins Allergy Verified 02/23/21 13:25 Review of Systems Review of Systems Narrative: urinary frequency, weakness and fatigue ROS: Yes All systems reviewed with the patient and are negative except as otherwise documented Constitutional Constitutional: Reports poor appetite and Reports weight loss Exam Vital Signs (past 8 hours): - 04/06/21 15:05 04/06/21 16:28 04/06/21 16:30 Temperature 97.7 F Pulse Rate 72 65 68 Respiratory Rate 22 18 Blood Pressure 177/85 H 194/94 H 200/93 H Pulse Oximetry 93 94 04/06/21 17:10 04/06/21 17:30 04/06/21 17:31 Temperature Pulse Rate 69 65 63 Respiratory Rate 21 23 20 Blood Pressure 201/87 H Pulse Oximetry 94 91 92 04/06/21 18:00 04/06/21 18:23 04/06/21 18:30 Temperature Pulse Rate 67 66 71 Respiratory Rate 18 18 21 Blood Pressure 206/92 H 198/85 H 209/88 H Pulse Oximetry 90 L 93 94 04/06/21 18:44 Temperature Pulse Rate 64 Respiratory Rate Blood Pressure 209/88 H Pulse Oximetry Oxygen Delivery Method Room Air Const General: cooperative, disheveled and frail appearing Nutritional Appearance: underweight Orientation: alert and oriented x3 HENMT Head: normocephalic and atraumatic Face and sinus: normal facial exam Eyes Sclera: sclerae normal Neck Neck: trachea midline Chest Chest: normal inspection of the chest Resp Effort & Inspection: normal respiratory effort and able to speak in complete sentences Cardio Rate: regular rate Rhythm: abnormal rhythm with ectopic beats GI Palpation: soft and hernia Other: No acute abdomen, hernia is soft and non tender at this time. No clinical findings of ischemia Skin General: atrophy, dry skin and pallor Rashes: no rashes Hair: brittle and general thinning Neuro General: patient alert and patient oriented x3 Cognition: normal cognition Speech: speech normal Extrem General: full ROM Psych Mental Status: mental status grossly normal Affect: normal affect Attitude: cooperative Judgment: judgment good Objective Labs Result Diagrams: 04/06/21 15:17 04/06/21 15:17 Labs: Laboratory Results - last 24 hr 04/06/21 04/06/21 04/06/21 15:17 15:17 15:17 WBC 8.7 RBC 5.17 Hgb 15.7 Hct 46.4 H MCV 89.6 MCH 30.3 MCHC 33.8 RDW 14.0 Plt Count 318 Neut % (Auto) 84.6 H Lymph % (Auto) 10.0 L [place] % (Auto) 4.9 Eos % (Auto) 0.1 L Baso % (Auto) 0.4 Neut # (Auto) 7300 H Lymph # (Auto) 900 L [place] # (Auto) 400 Eos # (Auto) 0 Baso # (Auto) 0 Sodium 134 L Potassium 3.8 Chloride 94 L Carbon Dioxide 31 BUN 11 Creatinine 0.66 Estimated GFR > 60.0 BUN/Creatinine Ratio 16.7 Glucose 139 H Lactate Calcium 10.0 Total Bilirubin 0.9 AST 38 H ALT 24 Alkaline Phosphatase 186 H Troponin I < 0.012 NT-Pro-B Natriuret Pep 570 H Total Protein 9.4 H Albumin 5.0 Globulin 4.4 H Albumin/Globulin Ratio 1.1 Lipase 53 Urine RBC Urine WBC Ur Squamous Epith Cells Urine Bacteria Ur Culture Indicated? Phenytoin SARS-CoV-2 (PCR) 04/06/21 04/06/21 04/06/21 15:17 16:55 16:59 WBC RBC Hgb Hct MCV MCH MCHC RDW Plt Count Neut % (Auto) Lymph % (Auto) [place] % (Auto) Eos % (Auto) Baso % (Auto) Neut # (Auto) Lymph # (Auto) [place] # (Auto) Eos # (Auto) Baso # (Auto) Sodium Potassium Chloride Carbon Dioxide BUN Creatinine Estimated GFR BUN/Creatinine Ratio Glucose Lactate 1.9 Calcium Total Bilirubin AST ALT Alkaline Phosphatase Troponin I NT-Pro-B Natriuret Pep Total Protein Albumin Globulin Albumin/Globulin Ratio Lipase Urine RBC Urine WBC Ur Squamous Epith Cells Urine Bacteria Ur Culture Indicated? Phenytoin 5.4 L SARS-CoV-2 (PCR) Negative 04/06/21 18:46 WBC RBC Hgb Hct MCV MCH MCHC RDW Plt Count Neut % (Auto) Lymph % (Auto) [place] % (Auto) Eos % (Auto) Baso % (Auto) Neut # (Auto) Lymph # (Auto) [place] # (Auto) Eos # (Auto) Baso # (Auto) Sodium Potassium Chloride Carbon Dioxide BUN Creatinine Estimated GFR BUN/Creatinine Ratio Glucose Lactate Calcium Total Bilirubin AST ALT Alkaline Phosphatase Troponin I NT-Pro-B Natriuret Pep Total Protein Albumin Globulin Albumin/Globulin Ratio Lipase Urine RBC 1-5/hpf D Urine WBC 1-5/hpf Ur Squamous Epith Cells 1-5 /hpf Urine Bacteria Occasional (0-1) Ur Culture Indicated? Cult not indicated Phenytoin SARS-CoV-2 (PCR) [facility] Medical History Acid reflux Epilepsy Paroxysmal atrial fibrillation Social History marital status: household members: family and other lives independently: Yes Tobacco & Substance Use Smoking Status: Unknown if ever smoked alcohol intake: never Assessment & Plan Assessment & Plan narrative: SBO associated with ventral hernia, no signs clinically of ischemia and in fact hernia appears reduceable. Recent diagnosis of stage 3 colon cancer. Two weeks post robotic right colectomy Large Hiatal hernia with GERD Cystocele Hypertension on arrival Plan: admit for hydration, bowel rest and gastro grafin challenge tomorrow unless exam changes. COVID-19 COVID-19 status: Negative Time Spent With Patient Time with patient: 50 to 69 minutes with 50% spent counseling/coordinating care Critical Care time: I spent a total of [] minutes of critical care time on this patient's care today; this time is exclusive of procedural time.
--- NOTE | 2021-04-06 23:48 | PM.HP.1 ---
History of Present Illness History of Present Illness Date Patient Seen: 04/06/21 Time Patient Seen: 23:48 Chief complaint: Dry heaving, 2 seizures, pain in back Patient History Medical History Acid reflux Epilepsy Paroxysmal atrial fibrillation Family & Social History Social History: household members family,other Prior Living Arrangements Assisted Living lives independently Yes Safety & Behavioral: Feels Safe in Current Yes Environment Been Physically Hurt or No Threatened By a Person Suicidal Ideation Description None Suicide Plan Description No Plan Tobacco & Substance use: Smoking Status Former smoker alcohol intake never alcohol intake frequency other Substance Use Type does not use Meds Home Medications and Allergies Home Medications Medication Instructions Recorded Confirmed Type clopidogrel 75 mg tablet 75 mg PO DAILY 05/15/18 02/23/21 History gabapentin 100 mg capsule 200 mg PO QID 05/15/18 02/23/21 History levothyroxine 88 mcg tablet 88 mcg PO DAILY 05/15/18 02/23/21 History lisinopril 20 mg tablet 20 mg PO DAILY 05/15/18 02/23/21 History phenobarbital 97.2 mg tablet 97.2 mg PO DAILY 05/15/18 02/23/21 History phenytoin sodium extended 100 mg 100 mg PO DAILY 05/15/18 02/23/21 History capsule furosemide 20 mg tablet 20 mg PO DAILY 01/19/21 02/23/21 History potassium chloride 10 mEq 10 meq PO DAILY 01/19/21 02/23/21 History tablet,extended release(part/cryst) Allergies Allergy/AdvReac Type Severity Reaction Status Date / Time tramadol Allergy Severe Seizure Verified 02/23/21 13:25 Penicillins Allergy Verified 02/23/21 13:25 Exam Vital Signs (past 8 hours): - 04/06/21 16:28 04/06/21 16:30 04/06/21 17:10 Temperature Pulse Rate 65 68 69 Respiratory Rate 18 21 Blood Pressure 194/94 H 200/93 H Pulse Oximetry 94 94 04/06/21 17:30 04/06/21 17:31 04/06/21 18:00 Temperature Pulse Rate 65 63 67 Respiratory Rate 23 20 18 Blood Pressure 201/87 H 206/92 H Pulse Oximetry 91 92 90 L 04/06/21 18:23 04/06/21 18:30 04/06/21 18:44 Temperature Pulse Rate 66 71 64 Respiratory Rate 18 21 Blood Pressure 198/85 H 209/88 H 209/88 H Pulse Oximetry 93 94 04/06/21 19:00 04/06/21 19:30 04/06/21 20:00 Temperature Pulse Rate 65 62 66 Respiratory Rate 17 18 17 Blood Pressure Pulse Oximetry 94 94 94 04/06/21 20:30 04/06/21 21:00 04/06/21 21:30 Temperature Pulse Rate 60 63 77 Respiratory Rate 17 27 H 17 Blood Pressure Pulse Oximetry 93 94 90 L 04/06/21 22:00 04/06/21 22:30 04/06/21 22:58 Temperature 98.5 F Pulse Rate 84 77 75 Respiratory Rate 22 16 18 Blood Pressure 186/79 H Pulse Oximetry 91 92 93 Oxygen Delivery Method Room Air Oxygen Flow Rate 0 Objective Labs Result Diagrams: 04/06/21 15:17 04/06/21 15:17 Labs: Laboratory Results - last 24 hr 04/06/21 04/06/21 04/06/21 15:17 15:17 15:17 WBC 8.7 RBC 5.17 Hgb 15.7 Hct 46.4 H MCV 89.6 MCH 30.3 MCHC 33.8 RDW 14.0 Plt Count 318 Neut % (Auto) 84.6 H Lymph % (Auto) 10.0 L [place] % (Auto) 4.9 Eos % (Auto) 0.1 L Baso % (Auto) 0.4 Neut # (Auto) 7300 H Lymph # (Auto) 900 L [place] # (Auto) 400 Eos # (Auto) 0 Baso # (Auto) 0 Sodium 134 L Potassium 3.8 Chloride 94 L Carbon Dioxide 31 BUN 11 Creatinine 0.66 Estimated GFR > 60.0 BUN/Creatinine Ratio 16.7 Glucose 139 H Lactate Calcium 10.0 Total Bilirubin 0.9 AST 38 H ALT 24 Alkaline Phosphatase 186 H Troponin I < 0.012 NT-Pro-B Natriuret Pep 570 H Total Protein 9.4 H Albumin 5.0 Globulin 4.4 H Albumin/Globulin Ratio 1.1 Lipase 53 Urine RBC Urine WBC Ur Squamous Epith Cells Urine Bacteria Ur Culture Indicated? Phenytoin SARS-CoV-2 (PCR) 04/06/21 04/06/21 04/06/21 15:17 16:55 16:59 WBC RBC Hgb Hct MCV MCH MCHC RDW Plt Count Neut % (Auto) Lymph % (Auto) [place] % (Auto) Eos % (Auto) Baso % (Auto) Neut # (Auto) Lymph # (Auto) [place] # (Auto) Eos # (Auto) Baso # (Auto) Sodium Potassium Chloride Carbon Dioxide BUN Creatinine Estimated GFR BUN/Creatinine Ratio Glucose Lactate 1.9 Calcium Total Bilirubin AST ALT Alkaline Phosphatase Troponin I NT-Pro-B Natriuret Pep Total Protein Albumin Globulin Albumin/Globulin Ratio Lipase Urine RBC Urine WBC Ur Squamous Epith Cells Urine Bacteria Ur Culture Indicated? Phenytoin 5.4 L SARS-CoV-2 (PCR) Negative 04/06/21 18:46 WBC RBC Hgb Hct MCV MCH MCHC RDW Plt Count Neut % (Auto) Lymph % (Auto) [place] % (Auto) Eos % (Auto) Baso % (Auto) Neut # (Auto) Lymph # (Auto) [place] # (Auto) Eos # (Auto) Baso # (Auto) Sodium Potassium Chloride Carbon Dioxide BUN Creatinine Estimated GFR BUN/Creatinine Ratio Glucose Lactate Calcium Total Bilirubin AST ALT Alkaline Phosphatase Troponin I NT-Pro-B Natriuret Pep Total Protein Albumin Globulin Albumin/Globulin Ratio Lipase Urine RBC 1-5/hpf D Urine WBC 1-5/hpf Ur Squamous Epith Cells 1-5 /hpf Urine Bacteria Occasional (0-1) Ur Culture Indicated? Cult not indicated Phenytoin SARS-CoV-2 (PCR) Assessment & Plan Time Spent With Patient Critical Care time: I spent a total of [] minutes of critical care time on this patient's care today; this time is exclusive of procedural time. Quality VTE Deep Vein Thrombosis/Pulmonary Embolism Present on Admission: No
[2021-04-07] VITALS (16 sets, daily range): BP systolic 146–185; BP diastolic 74–97; PULSE 76–84; RESP 14–16; TEMP 36.4–38.3; O2SAT 91–95
[2021-04-07] MEDS: ONDANSETRON 4 MG/2 ML INJ IV ×3 (00:45→23:52)
[2021-04-07] MEDS: levETIRAcetam 500 MG in SODIUM CHLORIDE 0.9% 100 ML 420 ML IV ×3 (00:46→23:38)
[2021-04-07] MEDS: SODIUM CHLORIDE 0.9% 1,000 ML 100 ML IV ×3 (00:46→21:04)
[2021-04-07] MEDS: ENALAPRILAT 2.5 MG/ 2 ML VIAL 0.625 MG IV ×3 (00:57→18:10)
--- NOTE | 2021-04-07 05:20 | PM.HP.1 ---
History of Present Illness History of Present Illness Date Patient Seen: 04/06/21 Time Patient Seen: 23:30 Chief complaint: Dry heaving, 2 seizures, pain in back Narrative: Dinora Carreon is an 85 y.o. resident of [facility] living in [place] with a seizure disorder, stage 3 colon cancer status post partial colectomy 2 weeks ago, ventral hernia,, hypertension, paroxysmal atrial fibrillation previously cardioverted, large hiatal hernia presented with a 2 day history of nausea and dry heaves but no vomiting She also had 2 episodes of breakthrough seizures that were witnessed by her caregivers. She states that she developed seizures at an early age in her teens and at that time they were grand mal seizures and now they seem to be more subtle, she blacks out and does not know that she has had them. She does endorse having more fatigue than usual, nausea, vomiting, diminished appetite, and pain in her flank. She denies fever chills, shortness of breath, chest pain, she does endorse having chronic urinary incontinence, denies diarrhea and in fact his had no bowel movement since Monday. I reviewed the history and physical and pathology reports from [facility]. On February 05 patient underwent a colonoscopy and was found to have a newly diagnosed cecal cancer. They found a in [facility] late id sigmoid polyp but was not removed because the patient was taking Plavix at the time. She then underwent a right colectomy by Dr. Shoaib Dumont and the pathology results reported an invasive poorly differentiated colonic adenocarcinoma. CT of the pelvis indicated ?Several of the herniated loops of small bowel demonstrates circumferential wall thickening in there is mild inflammation and fluid within the hernia.? In addition to anastomotic sutures from her recent colectomy. Patient's most recent temperature indicates she is febrile at 100.2, blood pressure 152/76, heart rate 79, respiratory rate 16, oxygen saturation of 94% on room air, she weighs 74 kg with a BMI of 29.8. CBC is unremarkable, she does have a mild left shift of 7300 neutrophils, sodium is 134, chloride 94, glucose 139, AST 38, alk-phos 186, proBNP is 570, UA is negative for UTI, her phenytoin level was 5.4, subtherapeutic, and COVID-19 PCR is negative. Patient History Medical History Acid reflux Epilepsy Paroxysmal atrial fibrillation Family & Social History Family History (Updated 04/07/21 @ 06:26 by MINNA Andrade) Father Brain tumor Mother Brain tumor Other Congestive heart failure Social History: household members family,other Prior Living Arrangements Assisted Living lives independently Yes Safety & Behavioral: Feels Safe in Current Yes Environment Been Physically Hurt or No Threatened By a Person Suicidal Ideation Description None Suicide Plan Description No Plan Tobacco & Substance use: Smoking Status Former smoker alcohol intake never alcohol intake frequency other Substance Use Type does not use Meds Home Medications and Allergies Home Medications Medication Instructions Recorded Confirmed Type clopidogrel 75 mg tablet 75 mg PO DAILY 05/15/18 02/23/21 History gabapentin 100 mg capsule 200 mg PO QID 05/15/18 02/23/21 History levothyroxine 88 mcg tablet 88 mcg PO DAILY 05/15/18 02/23/21 History lisinopril 20 mg tablet 20 mg PO DAILY 05/15/18 02/23/21 History phenobarbital 97.2 mg tablet 97.2 mg PO DAILY 05/15/18 02/23/21 History phenytoin sodium extended 100 mg 100 mg PO DAILY 05/15/18 02/23/21 History capsule furosemide 20 mg tablet 20 mg PO DAILY 01/19/21 02/23/21 History potassium chloride 10 mEq 10 meq PO DAILY 01/19/21 02/23/21 History tablet,extended release(part/cryst) Allergies Allergy/AdvReac Type Severity Reaction Status Date / Time tramadol Allergy Severe Seizure Verified 02/23/21 13:25 Penicillins Allergy Verified 02/23/21 13:25 Review of Systems Review of Systems ROS: Yes All systems reviewed with the patient and are negative except as otherwise documented Exam Vital Signs (past 8 hours): - 04/06/21 21:30 04/06/21 22:00 04/06/21 22:30 Temperature Pulse Rate 77 84 77 Respiratory Rate 17 22 16 Blood Pressure Pulse Oximetry 90 L 91 92 04/06/21 22:58 04/06/21 23:51 04/07/21 00:58 Temperature 98.5 F Pulse Rate 75 Respiratory Rate 18 Blood Pressure 186/79 H 174/85 H Pulse Oximetry 93 94 04/07/21 03:00 04/07/21 03:52 Temperature 100.2 F H Pulse Rate 76 79 Respiratory Rate 16 16 Blood Pressure 185/84 H 152/76 H Pulse Oximetry 94 Oxygen Delivery Method Room Air Oxygen Flow Rate 0 Narrative Exam Narrative: Gen: Alert, oriented, well-developed 85 y.o. female, pale HEENT: normocephalic, atraumatic, conjunctiva clear, sclera non-icteric, oral mucosa pink and moist Neck: supple, full ROM, no JVD, trachea is midline Resp: Lungs CTA, non-labored breathing CV: RRR, no murmur or rubs Abd: soft, large left sided abdominal hernia approximately 5 cm diameter, hypoactive bowel tones Skin: Horizontal surgical scar is intact and does not appear to have any induration or drainage, robotic puncture site appears to be well healed. Neuro: Alert and oriented X 4 w/no focal deficits. Speech clear and coherent. Extremities: moves all 4 extremities, is ambulatory, negative Niranjan?s sign Psyche: normal mood and affect. Objective Labs Result Diagrams: 04/06/21 15:17 04/06/21 15:17 Labs: Laboratory Results - last 24 hr 04/06/21 04/06/21 04/06/21 15:17 15:17 15:17 WBC 8.7 RBC 5.17 Hgb 15.7 Hct 46.4 H MCV 89.6 MCH 30.3 MCHC 33.8 RDW 14.0 Plt Count 318 Neut % (Auto) 84.6 H Lymph % (Auto) 10.0 L [place] % (Auto) 4.9 Eos % (Auto) 0.1 L Baso % (Auto) 0.4 Neut # (Auto) 7300 H Lymph # (Auto) 900 L [place] # (Auto) 400 Eos # (Auto) 0 Baso # (Auto) 0 Sodium 134 L Potassium 3.8 Chloride 94 L Carbon Dioxide 31 BUN 11 Creatinine 0.66 Estimated GFR > 60.0 BUN/Creatinine Ratio 16.7 Glucose 139 H Lactate Calcium 10.0 Total Bilirubin 0.9 AST 38 H ALT 24 Alkaline Phosphatase 186 H Troponin I < 0.012 NT-Pro-B Natriuret Pep 570 H Total Protein 9.4 H Albumin 5.0 Globulin 4.4 H Albumin/Globulin Ratio 1.1 Lipase 53 Urine RBC Urine WBC Ur Squamous Epith Cells Urine Bacteria Ur Culture Indicated? Phenytoin SARS-CoV-2 (PCR) 04/06/21 04/06/21 04/06/21 15:17 16:55 16:59 WBC RBC Hgb Hct MCV MCH MCHC RDW Plt Count Neut % (Auto) Lymph % (Auto) [place] % (Auto) Eos % (Auto) Baso % (Auto) Neut # (Auto) Lymph # (Auto) [place] # (Auto) Eos # (Auto) Baso # (Auto) Sodium Potassium Chloride Carbon Dioxide BUN Creatinine Estimated GFR BUN/Creatinine Ratio Glucose Lactate 1.9 Calcium Total Bilirubin AST ALT Alkaline Phosphatase Troponin I NT-Pro-B Natriuret Pep Total Protein Albumin Globulin Albumin/Globulin Ratio Lipase Urine RBC Urine WBC Ur Squamous Epith Cells Urine Bacteria Ur Culture Indicated? Phenytoin 5.4 L SARS-CoV-2 (PCR) Negative 04/06/21 18:46 WBC RBC Hgb Hct MCV MCH MCHC RDW Plt Count Neut % (Auto) Lymph % (Auto) [place] % (Auto) Eos % (Auto) Baso % (Auto) Neut # (Auto) Lymph # (Auto) [place] # (Auto) Eos # (Auto) Baso # (Auto) Sodium Potassium Chloride Carbon Dioxide BUN Creatinine Estimated GFR BUN/Creatinine Ratio Glucose Lactate Calcium Total Bilirubin AST ALT Alkaline Phosphatase Troponin I NT-Pro-B Natriuret Pep Total Protein Albumin Globulin Albumin/Globulin Ratio Lipase Urine RBC 1-5/hpf D Urine WBC 1-5/hpf Ur Squamous Epith Cells 1-5 /hpf Urine Bacteria Occasional (0-1) Ur Culture Indicated? Cult not indicated Phenytoin SARS-CoV-2 (PCR) Assessment & Plan Assessment & Plan narrative: Roxy Carreon is an 85-year-old female who was admitted for a suspected small bowel obstruction verses incarcerated small bowel hernia. Patient will be have bowel rest, fluids, and possibly a Gastrografin study in the morning per general surgery. 1. Suspected small bowel obstruction verses incarcerated small bowel hernia, present on admission She will be NPO IV fluids normal saline at 125 mL/hour Dr. Woo, general surgery is consulting on the patient 2. Seizure disorder, chronic and appears to be not well controlled I have started her on IV Keppra 500 mg twice daily 3. Essential hypertension, poorly controlled She is on IV enalapril 0.625 q.i.d. for a systolic blood pressure greater than 160 VTE Prophylaxis: Wells risk score 2.5 subQ heparin 5000 units twice daily, this is chosen in the case the patient is taken into surgery, it will be a shorter time they have to await washing it out. Patient is admitted to the inpatient service due to the severity of disease, risks of further disease progression and this stay is expected to exceed 2 midnights. FEN: IV fluids: IV neural pole saline at 125 mL/hour diet: NPO, labs: CBC, C/BMP, liver enzymes, Mag, PT/INR Consultants Dr. Woo care and involvement in the patient?s care is appreciated. Dispo: unknown at this time Code status: Full code as discussed with the patient who identifies her son as her surrogate and POA. [X] I have utilized all available immediate resources to obtain, update, or review of the patient's current medications COVID-19 COVID-19 status: Negative Result date/Date tested (Pos, Neg/Pending): 04/06/21 Scores Wells' Criteria for PE Clinical signs and symptoms of DVT: No PE is #1 Dx or equally likely: No Heart rate > 100: No Immobilization at least 3 days or surg in previous 4 weeks: Yes History of PE or DVT: No Hemoptysis: No Malignancy w/Treatment within 6 months or palliative: Yes Wells' PE Score total: 2.5 Quality VTE Deep Vein Thrombosis/Pulmonary Embolism Present on Admission: No MIPS - Admit I confirm the patient?s Advance Care Plan is present, Code status is documented, Surrogate decision maker is in patient?s record [If Yes, STOP here]: Yes MIPS - DC The patient has current or prior documentation of left ventricular ejection fraction (LVEF) less than 40%, or moderate or severely depressed left ventricular systolic function.: No
[2021-04-07 06:59] LABS: Add Manual Diff / Slide Review NO; Basophils Absolute Auto 0 /uL (0-100); Basophils Percent Auto 0.6 % (0-2); Eosinophils Absolute Auto 0 /uL (0-450); Hematocrit 42.2 % (36-46); Hemoglobin 14.1 g/dL (12.0-16.0); Lymphocytes Absolute Auto 900 /uL (1100-4500); Lymphocytes Percent Auto 11.9 % (25-40); Mean Corpuscular HGB Conc 33.4 % (30-36); Mean Corpuscular Hemoglobin 30.2 PG (26-34); Mean Corpuscular Volume 90.3 fL (80-100); Monocytes Absolute Auto 500 /uL (0-900); Monocytes Percent Auto 6.9 % (3-14); Neutrophils Absolute Auto 6400 /uL (1500-7000); Neutrophils Percent Auto 80.6 % (50-75); Platelet Count 279 X10^3/uL (150-400); Red Blood Cell Count 4.67 X10^6/uL (4.0-5.2); Red Cell Distribution Width 13.8 % (11.6-14.8); White Blood Cell Count 7.9 X10^3/uL (4.5-11.0)
[2021-04-07 07:11] LABS: Alanine Aminotransferase 18 IU/L (<35); Albumin 4.1 g/dL (3.5-5.0); Albumin Globulin Ratio 1.2 (1.0-2.8); Alkaline Phosphatase 145 U/L (38-126); Aspartate Aminotransferase 30 IU/L (14-36); BUN Creatinine Ratio 18.6 (6-22); Bilirubin Total 0.8 mg/dL (0.2-1.3); Bilirubin Unconjugated 0.6 mg/dL (0.0-1.1); Blood Urea Nitrogen 13 mg/dL (7-17); Calcium 9.2 mg/dL (8.4-10.2); Carbon Dioxide 28 mmol/L (22-32); Chloride 98 mmol/L (98-107); Estimated Glomerular Filt Rate > 60.0 mL/min (>60); Globulin 3.5 g/dL (1.7-4.1); Glucose 112 mg/dL (80-110); HEMOLYSIS 17 (0-50); Magnesium 1.8 mg/dL (1.6-2.3); Potassium 3.6 mmol/L (3.4-5.1); Sodium 134 mmol/L (137-145); Total Protein 7.6 g/dL (6.3-8.2)
[2021-04-07] MEDS: HEPARIN 5,000 UNIT/ML VIAL 5000 UNIT SUBCUT ×2 (08:31→21:04)
[2021-04-07] MEDS: ACETAMINOPHEN 650 MG SUPP PR (09:58)
--- NOTE | 2021-04-07 11:09 | PM.PN.1 ---
Subjective Subjective Date Patient Seen: 04/07/21 Time Patient Seen: 11:09 Interval history: Groogy. No nausea, doesn't remember if she had any pain. Doesn't recall flatus. Exam Vital Signs (past 8 hours): - 04/07/21 03:52 04/07/21 06:21 04/07/21 07:26 Temperature 98.5 F 99.1 F Pulse Rate 79 84 84 Respiratory Rate 16 14 Blood Pressure 152/76 H 154/85 H 158/86 H Pulse Oximetry 91 04/07/21 07:56 04/07/21 09:58 Temperature 100.9 F H Pulse Rate 84 Respiratory Rate 16 Blood Pressure Pulse Oximetry 94 Oxygen Delivery Method Room Air Oxygen Flow Rate 0 Const General: cooperative and frail appearing Nutritional Appearance: average body habitus Orientation: awake and oriented x3 HENMT Head: normal to inspection Eyes Sclera: sclerae normal Neck Neck: trachea midline Chest Chest: normal inspection of the chest Resp Effort & Inspection: normal respiratory effort and able to speak in complete sentences Cardio Rate: regular rate Rhythm: abnormal rhythm with ectopic beats GI Inspection: abdominal wall ecchymosis Other: bruising at umbilicus could be post op or from manipulation, no erythema, bowel and hernia contents are soft and non tender. Skin General: atrophy and dry skin Neuro General: patient awake and patient oriented x3 Psych Appearance: grossly normal Speech and Movement: delayed speech (likely sedation effect but unchanged from last night) Affect: indifferent Attitude: cooperative Judgment: fair Objective Labs Result Diagrams: 04/07/21 06:20 04/07/21 06:20 Labs: Laboratory Results - last 24 hr 04/06/21 04/06/21 04/06/21 15:17 15:17 15:17 WBC 8.7 RBC 5.17 Hgb 15.7 Hct 46.4 H MCV 89.6 MCH 30.3 MCHC 33.8 RDW 14.0 Plt Count 318 Neut % (Auto) 84.6 H Lymph % (Auto) 10.0 L Morgan % (Auto) 4.9 Eos % (Auto) 0.1 L Baso % (Auto) 0.4 Neut # (Auto) 7300 H Lymph # (Auto) 900 L Morgan # (Auto) 400 Eos # (Auto) 0 Baso # (Auto) 0 Sodium 134 L Potassium 3.8 Chloride 94 L Carbon Dioxide 31 BUN 11 Creatinine 0.66 Estimated GFR > 60.0 BUN/Creatinine Ratio 16.7 Glucose 139 H Lactate Calcium 10.0 Magnesium Total Bilirubin 0.9 Conjugated Bilirubin Unconjugated Bilirubin AST 38 H ALT 24 Alkaline Phosphatase 186 H Troponin I < 0.012 NT-Pro-B Natriuret Pep 570 H Total Protein 9.4 H Albumin 5.0 Globulin 4.4 H Albumin/Globulin Ratio 1.1 Lipase 53 Urine RBC Urine WBC Ur Squamous Epith Cells Urine Bacteria Ur Culture Indicated? Phenytoin SARS-CoV-2 (PCR) 04/06/21 04/06/21 04/06/21 15:17 16:55 16:59 WBC RBC Hgb Hct MCV MCH MCHC RDW Plt Count Neut % (Auto) Lymph % (Auto) Morgan % (Auto) Eos % (Auto) Baso % (Auto) Neut # (Auto) Lymph # (Auto) Morgan # (Auto) Eos # (Auto) Baso # (Auto) Sodium Potassium Chloride Carbon Dioxide BUN Creatinine Estimated GFR BUN/Creatinine Ratio Glucose Lactate 1.9 Calcium Magnesium Total Bilirubin Conjugated Bilirubin Unconjugated Bilirubin AST ALT Alkaline Phosphatase Troponin I NT-Pro-B Natriuret Pep Total Protein Albumin Globulin Albumin/Globulin Ratio Lipase Urine RBC Urine WBC Ur Squamous Epith Cells Urine Bacteria Ur Culture Indicated? Phenytoin 5.4 L SARS-CoV-2 (PCR) Negative 04/06/21 04/07/21 04/07/21 18:46 06:20 06:20 WBC 7.9 RBC 4.67 Hgb 14.1 Hct 42.2 MCV 90.3 MCH 30.2 MCHC 33.4 RDW 13.8 Plt Count 279 Neut % (Auto) 80.6 H Lymph % (Auto) 11.9 L Morgan % (Auto) 6.9 Eos % (Auto) 0.0 L Baso % (Auto) 0.6 Neut # (Auto) 6400 Lymph # (Auto) 900 L Morgan # (Auto) 500 Eos # (Auto) 0 Baso # (Auto) 0 Sodium 134 L Potassium 3.6 Chloride 98 Carbon Dioxide 28 BUN 13 Creatinine 0.70 Estimated GFR > 60.0 BUN/Creatinine Ratio 18.6 Glucose 112 H Lactate Calcium 9.2 Magnesium 1.8 Total Bilirubin 0.8 Conjugated Bilirubin 0.0 Unconjugated Bilirubin 0.6 AST 30 ALT 18 Alkaline Phosphatase 145 H Troponin I NT-Pro-B Natriuret Pep Total Protein 7.6 Albumin 4.1 Globulin 3.5 Albumin/Globulin Ratio 1.2 Lipase Urine RBC 1-5/hpf D Urine WBC 1-5/hpf Ur Squamous Epith Cells 1-5 /hpf Urine Bacteria Occasional (0-1) Ur Culture Indicated? Cult not indicated Phenytoin SARS-CoV-2 (PCR) PFSH Medical History Acid reflux Epilepsy Paroxysmal atrial fibrillation Family History (Updated 04/07/21 @ 06:26 by MINNA Andrade) Father Brain tumor Mother Brain tumor Other Congestive heart failure Social History marital status: household members: family and other lives independently: Yes Smoking Status: Former smoker alcohol intake: never Assessment & Plan Assessment & Plan narrative: SBO w concern for strangulation in ventral hernia on CT scan. No clinical concern for ischemia on arrival or now. S/p robotic right colectomy 2 weeks. Plan; Gastrografin challenge. Continue TPN COVID-19 COVID-19 status: Negative Time Spent With Patient Time with patient: 30 to 49 minutes with 50% spent counseling/coordinating care Critical Care time: I spent a total of [] minutes of critical care time on this patient's care today; this time is exclusive of procedural time. Quality VTE Deep Vein Thrombosis/Pulmonary Embolism Present on Admission: No
--- NOTE | 2021-04-07 11:23 | CM.DANOTE ---
DCP: Case received, EMR reviewed and met with patient. Introduced self and role. Was able to obtain information regarding patient's baseline activity level at home, as well as her current living situation. DCP assessment completed with information currently available. Patient is an 85 year old female who admitted yesterday morning to the care of the hospitalist team. PCP: Dr. Turner. Payer: confirmed: [employer]. Patient came to the hospital via private vehicle secondary to having suspected small bowel obstruction. Patient has history of stage 3 colon cancer status post partial colectomy 2 weeks ago, as well as a-fib. Patient also has history of seizures. According to notes, patient had a colonoscopy on approximately 02/05, and was diagnosed with Newly diagnosed cecal cancer. She then underwent a right colectomy. Met with patient in her room. She just had x-ray. She was laying in bed, hard of hearing. Confirmed that she resides at [facility] in [place]. She has meals in her room, until they open dining room, and caregivers are available if needed. She has a walker. Confirmed that she does have someone to pick her up upon discharge. Patient does not have current P.T. orders. P: DCP to continue to follow for any needs. It is unclear at this time if [facility] will need to do an assessment when patient is ready. Called [facility] and spoke with Jamison. She indicated, they do not have current dental resident, and the corporate nurse will need to evaluate if patient needs more assistance, since she is independent. She asked for clinical notes to be faxed to corporate nurse juhi calvo. Fax number is: [phone]. Nay will fax over information. Francy Douglass RN/Heel Cutter Discharge Planning/Care Management CM Discharge Assessment Start: 04/07/21 11:18 Freq: Status: Active Protocol: Document 04/07/21 11:18 (Rec: 04/07/21 11:23 [id number]) Discharge Planning Assessment Assigned Chief Operator Lock Tender Francy Douglass RN/Heel Cutter Advance Directives? No History Provided By Patient,Medical Record Prior Living Arrangements House Household Members family,other Type of transporation used prior to Relies on Others admit Facility Name Admitted From: [facility] Willing to Return to Facility? Yes Independent with ADL's Yes Is patient alert and oriented? Yes Needs Assistance With Meal Prep,Managing Medications ,Home Chores / Shopping Caregiver for Another No DME Already Rented / Owned FWW / Walker Barriers to Discharge No Comment She should be able to go back to [facility], will depend upon her mobility. Discharge Plan Home Transportation Arrangement Family Referrals Initiated None needed Whiteboard Updated in Patient Room with Yes name and ext. # of Chief Operator Lock Tender Review Status In Process Next Review Type Continued Stay Review
--- NOTE | 2021-04-07 11:41 | DIET.CONS ---
Dietary Consultation Note Admission Date: 04/06/2021 20:42 Assessment: 85y F admitted for concern over incarcerated ventral hernia referred to nutrition for decreased appetite and reccs for TPN. Pt had robot assisted colectomy 2w ago for stage 3 colon cancer and prior to admit started dry heaving with no flatus or BM, also seizures with known seizure disorder. Surgery planning gastrografin challenge today or tomorrow, possible need for further surgical intervention desiring TPN. Pts renal fxn WNL. Ht: 157.48 cm Wt: 74 kg BMI: 29.8 Last BM: 04/03/21 (04/06/21 22:00) MNA: 10 Mahamed Score: 18 Diet: 04/06/21 23:52 NPO Diet Diet Modifications: NPO Type: NPO except for Ice Chips Labs: RBC 4.67 X10^6/uL (4.0-5.2) 04/07/21 06:20 Hgb 14.1 g/dL (12.0-16.0) 04/07/21 06:20 Hct 42.2 % (36-46) 04/07/21 06:20 Creatinine 0.70 mg/dL (0.52-1.04) 04/07/21 06:20 Lactate 1.9 mmol/L (0.7-2.1) 04/06/21 16:59 NT-Pro-B Natriuret Pep 570 pg/mL (<450) H 04/06/21 15:17 Nutrition Diagnosis: inadequate oral intake r/t NPO status, pt high risk secondary to new colon Ca dx and recent abd surgery. Interventions: 1. Recc continuous TPN via PICC Clinimix 08/06 2,000mL with 250mL IVFE twice per week providing 1900kcals and 100g PRO. Day 1: 1 L Clinimix running 42mL/h, if tolerating, no signs refeeding... Day 2: 2 L Clinimix running 82mL/h, if tolerating, no signs refeeding... Day 3: 2 L Clinimix running 82mL/h plus 250mL IVFE EER: 1850kcals (25kcal/kg per overweight post-surgical), 96g PRO (1.3g/kg per post surgical) Monitoring/Evaluations: TPN initiation, TPN tolerance Electronically Signed by: Stephanie Byrd 04/07/21 11:41 Clinical Dietitian [address] [address]
--- NOTE | 2021-04-07 11:52 | CM.DPNOTE ---
Faxed H&P & progress note per Precious to [facility], . Received fax conf. Nay Espinoza CM Asst.
[2021-04-07] MEDS: PROCHLORPERAZINE 10 MG/2 ML VIAL 5 MG IV (12:15)
--- NOTE | 2021-04-07 12:46 | PC.NURSE ---
pt unable to tolerate gastrofrafin challenge, she only drank half of the one bottle but she vomited it all out. notified Dr. Woo and [place].
--- NOTE | 2021-04-07 12:54 | PM.EVENT ---
Event Note Date Patient Seen: 04/07/21 Event Note: Patient not able to tolerate contrast and threw up similar volume she ingested.
[2021-04-07] MEDS: PANTOPRAZOLE 40 MG VIAL IV ×2 (13:18→21:04)
--- NOTE | 2021-04-07 17:01 | PC.NURSE ---
Addendum entered by Leora Palma R.N. 04/07/21 18:14: pt passed gas a couple times. nausea improved, but pt still feels significantly weak. BP is still elevated. BP med given Original Note: unable to do med rec. pt does not know when she takes her med. son also doesn't know anything about her medication
--- NOTE | 2021-04-07 17:22 | P.PN_ITS ---
Subjective Subjective Date Patient Seen: 04/07/21 Time Patient Seen: 08:00 Interval history: She feels fatigued. She does not feel well. She is nauseous. She had a g astrograffin study and was unable to keep down the contrast. Exam Vital Signs (past 8 hours): - 04/07/21 09:58 04/07/21 11:42 04/07/21 12:05 Temperature 100.9 F H 97.6 F 98.5 F Pulse Rate 76 Respiratory Rate 14 Blood Pressure 146/82 H Pulse Oximetry 94 04/07/21 12:15 04/07/21 14:34 04/07/21 16:00 Temperature Pulse Rate 77 77 Respiratory Rate Blood Pressure 177/97 H 175/83 H Pulse Oximetry 94 Oxygen Delivery Method Room Air Oxygen Flow Rate 0 Narrative Exam Narrative: Gen: alert and oriented, ill appearing Resp: clear bilaterally CV: regular rate and rhytm, no murmurs Abd: soft, distended, decreased bowel sound, surgical scar clean Objective Labs Result Diagrams: 04/07/21 06:20 04/07/21 06:20 Labs: Laboratory Results - last 24 hr 04/06/21 04/06/21 04/06/21 15:17 16:55 18:46 WBC RBC Hgb Hct MCV MCH MCHC RDW Plt Count Neut % (Auto) Lymph % (Auto) [place] % (Auto) Eos % (Auto) Baso % (Auto) Neut # (Auto) Lymph # (Auto) [place] # (Auto) Eos # (Auto) Baso # (Auto) Sodium Potassium Chloride Carbon Dioxide BUN Creatinine Estimated GFR BUN/Creatinine Ratio Glucose Calcium Magnesium Total Bilirubin Conjugated Bilirubin Unconjugated Bilirubin AST ALT Alkaline Phosphatase Total Protein Albumin Globulin Albumin/Globulin Ratio Urine RBC 1-5/hpf D Urine WBC 1-5/hpf Ur Squamous Epith Cells 1-5 /hpf Urine Bacteria Occasional (0-1) Ur Culture Indicated? Cult not indicated Phenytoin 5.4 L SARS-CoV-2 (PCR) Negative 04/07/21 04/07/21 06:20 06:20 WBC 7.9 RBC 4.67 Hgb 14.1 Hct 42.2 MCV 90.3 MCH 30.2 MCHC 33.4 RDW 13.8 Plt Count 279 Neut % (Auto) 80.6 H Lymph % (Auto) 11.9 L [place] % (Auto) 6.9 Eos % (Auto) 0.0 L Baso % (Auto) 0.6 Neut # (Auto) 6400 Lymph # (Auto) 900 L [place] # (Auto) 500 Eos # (Auto) 0 Baso # (Auto) 0 Sodium 134 L Potassium 3.6 Chloride 98 Carbon Dioxide 28 BUN 13 Creatinine 0.70 Estimated GFR > 60.0 BUN/Creatinine Ratio 18.6 Glucose 112 H Calcium 9.2 Magnesium 1.8 Total Bilirubin 0.8 Conjugated Bilirubin 0.0 Unconjugated Bilirubin 0.6 AST 30 ALT 18 Alkaline Phosphatase 145 H Total Protein 7.6 Albumin 4.1 Globulin 3.5 Albumin/Globulin Ratio 1.2 Urine RBC Urine WBC Ur Squamous Epith Cells Urine Bacteria Ur Culture Indicated? Phenytoin SARS-CoV-2 (PCR) [facility] Medical History Acid reflux Epilepsy Paroxysmal atrial fibrillation Family History (Updated 04/07/21 @ 06:26 by MINNA Andrade) Father Brain tumor Mother Brain tumor Other Congestive heart failure Social History marital status: household members: family and other lives independently: Yes Smoking Status: Former smoker alcohol intake: never Assessment & Plan Assessment & Plan narrative: 1. Suspected small bowel obstruction verses incarcerated small bowel hernia, present on admission -patient npo -unable to tolerate gastrograffin -continue IV fluids -surgery following patient -she is not passing stool or gas -was febrile so will add meropenem 2. Seizure disorder, chronic and appears to be not well controlled -continue keppra while npo 3. Essential hypertension, poorly controlled enaliprat prn for significant hypertension Time Spent With Patient Critical Care time: I spent a total of [] minutes of critical care time on this patient's care today; this time is exclusive of procedural time. Quality VTE Deep Vein Thrombosis/Pulmonary Embolism Present on Admission: No
[2021-04-07] MEDS: MEROPENEM 2 GM in SODIUM CHLORIDE 0.9% 100 ML 200 ML IV (18:09)
[2021-04-07] MEDS: MORPHINE 2 MG/ML INJ 1 MG IV ×2 (18:49→23:18)
[2021-04-08] VITALS (49 sets, daily range): BP systolic 50–172; BP diastolic 5–97; PULSE 60–134; RESP 8–135; TEMP 31–37.2; O2SAT 78–100; BMI 29.8
--- NOTE | 2021-04-08 | DI.RAD.S_ITS ---
PROCEDURE: XR CHEST 1V INDICATIONS: POST CPR TECHNIQUE: One view of the chest was acquired. COMPARISON: [facility], CR, XR CHEST 1V, 04/08/2021, 15:39. [facility], CR, XR CHEST FOR PICC 1V, 04/08/2021, 17:03. FINDINGS: Surgical changes and devices: An endotracheal tube is seen, with the tip 4.5 cm above the jayne. A gastric tube is seen, with the tip coiled overlying the midesophagus, with the tip likely within the distal esophagus, not quite reaching the level of the diaphragm. There is a stable right-sided PICC line. Lungs and pleura: On this supine examination, no large pneumothorax or large pleural effusions are seen. Generalized interstitial type infiltrates are seen, right worse than left. Mediastinum: Mediastinal contours appear normal. Heart size is normal. Bones and chest wall: No suspicious bony lesions. No yaz rib fractures are seen on this study. Age-appropriate bony degenerative changes are seen. Overlying soft tissues appear unremarkable. IMPRESSION: The tip of the gastric tube is coiled overlying the midesophagus, with the tip overlying the distal esophagus. Please consider repositioning. The tip of the endotracheal tube is seen 4.5 cm above the jayne. Bilateral interstitial type infiltrates are seen, right worse than left. Note: Findings of the gastric tube discussed by telephone with ICU nurse, Raudel, at 4:52 p.m. [place] time on April 08, 2021. Dictated by: Yehuda Setih M.D. on 04/08/2021 at 16:49 Approved by: Yehuda Sethi M.D. on 04/08/2021 at 16:53
--- NOTE | 2021-04-08 | DI.RAD.S_ITS ---
PROCEDURE: XR CHEST 1V INDICATIONS: INBUBATION TECHNIQUE: One view of the chest was acquired. COMPARISON: [facility], , XR CHEST 1V, 04/08/2021, 12:44. FINDINGS: Surgical changes and devices: ET tube is 3.3 centimeters superior to the jayne. Lungs and pleura: Increased opacification noted in the right lung concerning for aspiration versus pneumonia. Streaky opacity noted in the left lung base which likely represents atelectasis. No pleural effusions or pneumothorax. Mediastinum: Mediastinal contours appear normal. Heart size is normal. Large paraesophageal hiatal hernia redemonstrated. Contrast material identified within the herniated stomach. Bones and chest wall: No suspicious bony lesions. Overlying soft tissues appear unremarkable. IMPRESSION: ET tube 3.3 centimeters superior to the jayne. Increasing opacification in the left lung concerning for pneumonia or aspiration. Dictated by: Neida Hudson MD, PhD on 04/08/2021 at 14:58 Approved by: Neida Hudson MD, PhD on 04/08/2021 at 15:01
[2021-04-08] MEDS: ACETAMINOPHEN 325 MG TABLET 650 MG PO (01:59)
--- NOTE | 2021-04-08 02:16 | PC.NURSE ---
Addendum entered by Christi Parsons R.N. 04/08/21 06:03: AM b/p: 172/79, pulse 79. routine enalapril IVP given per order. patient slept off and on thru the NOC. denies n/v sx at this time. call light w/in reach. Original Note: 0200: drowsy, oriented. voices needs, uses call light appropriately. 1-2PA bed mobility. continues to have generalized/ABD pain. morphine given x 1 so far this night, w/ good effect. no emesis this shift, but has c/o nausea. emesis bag w/ in reach. cool wet cloth to forehead, PRN zofran given. PRN apap given x 1 w/ sip of ciara nik, and small bite of applesauce. HOB up 30 degrees, repositioned for comfort. turned onto her side, supported w/ pillows. SCD's applied, lotion applied to bilat feet and patient's thick socks put on per her request. remains NPO status. NS at 100/hour infusing. call light w/in reach.
[2021-04-08] MEDS: MORPHINE 2 MG/ML INJ 1 MG IV ×2 (04:20→09:00)
[2021-04-08] MEDS: MEROPENEM 2 GM in SODIUM CHLORIDE 0.9% 100 ML 200 ML IV (05:24)
[2021-04-08] MEDS: ENALAPRILAT 2.5 MG/ 2 ML VIAL 0.625 MG IV (06:07)
[2021-04-08 06:11] LABS: BUN Creatinine Ratio 24.1 (6-22); Blood Urea Nitrogen 14 mg/dL (7-17); Calcium 8.9 mg/dL (8.4-10.2); Carbon Dioxide 29 mmol/L (22-32); Chloride 101 mmol/L (98-107); Estimated Glomerular Filt Rate > 60.0 mL/min (>60); Glucose 103 mg/dL (80-110); HEMOLYSIS 45 (0-50); Magnesium 1.8 mg/dL (1.6-2.3); Potassium 3.5 mmol/L (3.4-5.1); Sodium 133 mmol/L (137-145)
--- NOTE | 2021-04-08 07:03 | DI.RAD.S_ITS ---
PROCEDURE: XR ABDOMEN 1V INDICATIONS: SBO TECHNIQUE: One view of the abdomen acquired. COMPARISON: [facility], CT, CT CHEST ABDOMEN PELVIS WITH CONTRAST, 03/07/2021, 13:12. [facility], CT, CT ABDOMEN PELVIS W CON, 04/06/2021, 16:54. FINDINGS: Surgical changes and devices: None. Bowel: Large hiatal hernia with stomach overlying the left hemithorax. Significant contrast is present within the stomach. Contrast is noted within both small and large bowel extending to the distal aspect of the left colon. There is an overall dilated fluid-filled appearance of both bowel loops. Soft tissues: No suspicious abdominal calcifications. Visualized solid organ contours appear normal in size. Bones: No suspicious bony lesions. IMPRESSION: Partial small bowel obstruction with contrast noted within the colon. Significant contrast remains within the stomach. Dictated by: Genoveva Caicedo M.D. on 04/08/2021 at 8:09 Approved by: Genoveva Caicedo M.D. on 04/08/2021 at 8:15
[2021-04-08 07:29] LABS: Hematocrit 42.4 % (36-46); Hemoglobin 14.3 g/dL (12.0-16.0); Mean Corpuscular HGB Conc 33.7 % (30-36); Mean Corpuscular Hemoglobin 30.5 PG (26-34); Mean Corpuscular Volume 90.4 fL (80-100); Platelet Count 268 X10^3/uL (150-400); Red Blood Cell Count 4.69 X10^6/uL (4.0-5.2); Red Cell Distribution Width 13.7 % (11.6-14.8); White Blood Cell Count 9.1 X10^3/uL (4.5-11.0)
--- NOTE | 2021-04-08 07:47 | PM.PREOP ---
Pre-operative Note COVID-19 COVID-19 status: Negative Criteria for continued procedure: Possibility delay results in more complex future surgery or treatment, Continuing or worsening of significant or severe pain and Delay expected to result in less-positive ultimate med/surg outcome Interval Note History & Physical reviewed/Exam performed by Physician: Yes Changes to H&P: Yes H&P completed within 30 days and has changed as indicated here:: Physical exam changed to tenderness in hernia site with a firmness not previously felt. Failure to progress. Had emesis w gastrografin challenge yesterday which may have aggrevated the problem. Needs Xlap with hernia repair (primary) and possible JOHN vs small bowel resection.
--- NOTE | 2021-04-08 08:00 | PM.PN.1 ---
Subjective Subjective Date Patient Seen: 04/08/21 Time Patient Seen: 08:00 Interval history: abdominal film taken shows her intrathoracic stomach and contrast throughout small bowel. Small bowel slightly dilated. No contrast in colon that I can see 18 hours from ingestion. The gastrografin could also be the cause of change in PE to a firm, tender area of the hernia Exam Vital Signs (past 8 hours): - 04/08/21 04:21 04/08/21 07:37 04/08/21 07:58 Temperature 99.0 F 97.6 F Pulse Rate 79 89 89 Respiratory Rate 18 18 18 Blood Pressure 172/97 H 111/70 Pulse Oximetry 93 92 92 Oxygen Delivery Method Room Air Oxygen Flow Rate 0 Objective Labs Result Diagrams: 04/08/21 07:06 04/08/21 05:30 Labs: Laboratory Results - last 24 hr 04/08/21 04/08/21 05:30 07:06 WBC 9.1 RBC 4.69 Hgb 14.3 Hct 42.4 MCV 90.4 MCH 30.5 MCHC 33.7 RDW 13.7 Plt Count 268 Sodium 133 L Potassium 3.5 Chloride 101 Carbon Dioxide 29 BUN 14 Creatinine 0.58 Estimated GFR > 60.0 BUN/Creatinine Ratio 24.1 H Glucose 103 Calcium 8.9 Magnesium 1.8 PFSH Medical History Acid reflux Epilepsy Paroxysmal atrial fibrillation Family History (Updated 04/07/21 @ 06:26 by MINNA Andrade) Father Brain tumor Mother Brain tumor Other Congestive heart failure Social History marital status: household members: family and other lives independently: Yes Smoking Status: Former smoker alcohol intake: never Assessment & Plan Time Spent With Patient Critical Care time: I spent a total of [] minutes of critical care time on this patient's care today; this time is exclusive of procedural time. Quality VTE Deep Vein Thrombosis/Pulmonary Embolism Present on Admission: No
[2021-04-08 08:46] LABS: Lactate (Lactic Acid) 0.9 mmol/L (0.7-2.1)
[2021-04-08] MEDS: ONDANSETRON 4 MG/2 ML INJ IV (08:54)
[2021-04-08] MEDS: PANTOPRAZOLE 40 MG VIAL IV (08:54)
[2021-04-08] MEDS: SODIUM CHLORIDE 0.9% 1,000 ML 100 ML IV (08:58)
[2021-04-08] MEDS: LACTATED RINGERS 1,000 ML 42 ML IV ×2 (09:57→13:06)
[2021-04-08] MEDS: PIPERACILLIN/TAZO 3.375 GM in SODIUM CHLORIDE 0.9% 100 ML 25 ML IV (11:07)
--- NOTE | 2021-04-08 11:07 | SUR.OPER ---
Supine on padded OR bed, head on pillow, arms secured on padded arm boards at <90 degrees abduction, legs uncrossed, safety belt at thigh, tape over blanket over lower legs.
--- NOTE | 2021-04-08 11:49 | PM.OP.1 ---
Operative Date/Time/Diagnoses Date of procedure: 04/08/21 Time of procedure: 11:49 Pre-op diagnosis: Small bowel obstruction associated with a chronic ventral hernia Post-op diagnosis: same Procedure & Clinicians Procedure: Exploratory mini laparotomy with lysis of adhesions. Resection of hernia sac and portion of the redundant skin associated with the ventral hernia. Lysis of adhesions Same procedure as scheduled: Yes Indications: Persistent small bowel obstruction. Failed Gastrografin challenge. No evidence of ischemia clinically continued to have normal vital signs and normal lactate Surgeon: Yahaira Woo Click Yes if Unassisted: Yes Anesthesia Type: General Operative Notes Findings: Ventral hernia and likely pre-existing umbilical hernia that enlarged. Incarcerated small bowel with a twist around and internal adhesion of the hernia sac. All bowel was viable. Small bowel was ran in its entirety with no issues. Closure Type: primary Specimen(s): none sent Blood products transfused: none Procedure in detail: Preop diagnosis incarcerated ventral hernia with obstruction small bowel. Postop diagnosis: Same Operative procedure: Exploratory mini laparotomy with lysis of adhesions, hernia repair Surgeon: denzel Woo MD Anesthetic: General with ET tube intubation. Findings: Incarcerated and obstructed small bowel without evidence of ischemia. Fascial defect size of medium orange Procedure: Patient placed in a supine position. Prepped and draped in a sterile fashion. Curvilinear incision was made in the lateral aspect of the ventral hernia. I then identified the obstructed band of adhesions and release that so that the small bowel could be observed wall repair of the hernia was done. Hernia sac was removed as well as a portion of the redundant skin. Hernia defect was easily closed with a running looped 0 PDS. Prior to that the small bowel was run in its entirety showing no abnormalities or further issues. And a portion of the omentum was pulled down to cover the small bowel prior to closure of the fascia. Skin was closed a running 4-0 Vicryl. Sterile dressings were placed. Patient was awakened, extubated, taken to recovery room in stable condition with needle sponge, instrument count correct. Blood loss: 3 mL Specimen: None
--- NOTE | 2021-04-08 12:41 | DI.RAD.S_ITS ---
PROCEDURE: XR CHEST 1V INDICATIONS: Post op Hypoxia TECHNIQUE: One view of the chest was acquired. COMPARISON: [facility], CT, CT ABDOMEN PELVIS W CON, 04/06/2021, 16:54. [facility], CR, XR CHEST 1V, 04/06/2021, 16:54. FINDINGS: Surgical changes and devices: None. Lungs and pleura: Focal opacity noted in the medial aspect of the right lung base which could represent atelectasis, aspiration or pneumonia. No pleural effusions or pneumothorax. Mediastinum: Mediastinal contours appear normal. Heart size is normal. Large paraesophageal hiatal hernia noted. Contrast material noted in the herniated stomach. Mildly dilated loops of small bowel noted in the upper abdomen. Bones and chest wall: No suspicious bony lesions. Overlying soft tissues appear unremarkable. IMPRESSION: 1. Focal opacity in the medial aspect of the right lung base which could represent atelectasis, aspiration or pneumonia. 2. Mild gaseous dilatation of loops of small bowel which could represent ileus or obstruction. Dictated by: Neida Hudson MD, PhD on 04/08/2021 at 11:57 Approved by: Neida Hudson MD, PhD on 04/08/2021 at 11:59
--- NOTE | 2021-04-08 12:48 | SUR.PHASEI ---
Addendum entered by Amber Escalera R.N. 04/08/21 16:09: 1440-Hospitalist updated on low urine output-50 ml in pacu Addendum entered by Amber Escalera R.N. 04/08/21 16:02: 1440-RECEPTION SPECIALIST Kendy called,report given. awaiting 3 pm abg -possible intubation. 1445-Hospitalist returned-goal to intubate/ no abg required.. SSRS DEVELOPER notified. Dr Dalton here to do intubation. patient more awake/alert. no pain/nausea. poor sat brick picker=hands wrapped in blankets. 1500-Intubation completed by Dr Dalton after iv sedation given. ambu assisted breathing. Preparing to transfer to ICU. 1505-BP down. K Marybel RN,here at bedside, started drips of Fentanyl/profolol and then Levophed after another iv inserted rt hand. 1525-stabalized. Transfer to ICU. monitors/oxygen/ambu. Bedside hand off with Kendy TAMEZ done.no changes with abdominal dressing. Binder remains on. Addendum entered by Amber Escalera R.N. 04/08/21 13:53: 1400-Pharmacy called reguarding releasing/sending antibiotics ordered to start post op. patient more awake and alert. Addendum entered by Amber Escalera R.N. 04/08/21 13:28: 1330-more arouseable. color pink. sats on 100 bipap at 94-995%. more comfortable. c/o cold-warm blankets applied. Hospitalist here to see pt. holding for bed availability in ICU-eta 1 hour.vss. Original Note: 04/08/21 1245 Pacu: 1225-Recieved from OR with simple face mask/oxygen at 7 liters. monitors on. Sats checked at 80% to finger and ear site. Minimal verbal responses-c/o IT hurts, but vague on description/number-just repeats it hurts and abdomen. Abdominal dressing cdi and abdominal binder on. Hob elevated. Enc to DB. Abgs done-results to anesthesia. medicated ivp by anesthesia for pain. 1245- Bipap applied. sats remain low. cxr done and reviewed by Dr Knutson. Sats progressed up to 93%. Less responsive after meds. abgs to be repeated.
[2021-04-08] MEDS: AZTREONAM 1 GM in DEXTROSE 5 % IN WATER 50 ML 100 ML IV (14:03)
[2021-04-08] MEDS: metroNIDAZOLE 500 MG/100 ML PIGGYBACK 100 MG IV (14:46)
--- NOTE | 2021-04-08 14:58 | P.TELICUCN_ITS ---
History of Present Illness Consult details Chief complaint: Dry heaving, 2 seizures, pain in back :: This patient was seen via real time interactive two-way audiovisual telecommunication. Narrative: 85 y.o. f with medical H/o of PAF, HTN, seizure disorder, stage 3 colon cancer (invasive poorly differentiated colonic adenocarcinoma) status post partial colectomy 2 weeks prior to admission (04/07), large hiatal hernia, admitted for SBO and 2 episodes of breakthrough seizure. Patient failed conservative mgt, so she underwent Ex lap with lysis of adhesions & resection of hernia today. Concern for aspiration during Intubation pre op, post op patient was lethargic and hypoxic and placed on Bipap with no improvement so team proceeded with intubation. ? Assessment Acute hypoxic and hypercapnia Resp failure Concern for Aspiration PNA SBO s/p Ex lap with lysis of adhesions Septic shock Seizure episodes x2/ seizure disorder. PAF H/o of HTN ? Rec: Sedation Propofol and fentanyl Vent PRVC 22/450/15/100%, check ABG & CXR, wean off Fio2 for sat goal >92 On IV vanc, Aztreonam and flagyl, continue for now , send for Cx (trach aspirate, blood Cx) Levo and Vaso for MAP goal of 65 IV stress dose steroid IV Keppra Avoid IV enalapril for HTN for risk of MIR DVT ppx SC for today, may consider full AC after surgery approval GI PPX PPI or H2 judy Plan discussed with and RN CCT 60 min [facility] Medical History Acid reflux Epilepsy Paroxysmal atrial fibrillation Family History (Updated 04/07/21 @ 06:26 by MINNA Andrade) Father Brain tumor Mother Brain tumor Other Congestive heart failure Social History marital status: household members: family and other lives independently: Yes Smoking Status: Former smoker alcohol intake: never Current Medications Current Medications Medications: Home Medications clopidogrel 75 mg tablet 75 mg PO DAILY 05/15/18 [History Confirmed 04/08/21] gabapentin 100 mg capsule 200 mg PO QID 05/15/18 [History Confirmed 04/08/21] levothyroxine 88 mcg tablet 88 mcg PO DAILY 05/15/18 [History Confirmed 04/08/21] lisinopril 20 mg tablet 20 mg PO DAILY 05/15/18 [History Confirmed 04/08/21] phenobarbital 97.2 mg tablet 97.2 mg PO 4-6XD 05/15/18 [History Confirmed 04/08/21] phenytoin sodium extended 100 mg capsule 200 mg PO DAILY 05/15/18 [History Confirmed 04/08/21] furosemide 20 mg tablet 20 mg PO DAILY 01/19/21 [History Confirmed 04/08/21] potassium chloride 10 mEq tablet,extended release(part/cryst) 10 meq PO DAILY 01/19/21 [History Confirmed 04/08/21] Visit Medications (administered) Generic Name Dose Route Start Last Admin Trade Name Freq PRN Reason Stop Dose Admin Acetaminophen 650 mg 04/06/21 23:59 04/08/21 01:59 Acetaminophen 325 Mg Tablet PO 650 mg Q6HR PRN Administration Fever/Mild Pain (1-3) Enalaprilat 0.625 mg 04/07/21 00:15 04/08/21 06:07 Enalaprilat 2.5 Mg/ 2 Ml Vial IV 0.625 mg Q6H ANI Administration Heparin Sodium (Porcine) 5,000 unit 04/07/21 09:00 04/08/21 07:43 Heparin 5,000 Unit/Ml Vial SUBCUT Not Given BID ANI Sodium Chloride 1,000 mls @ 100 mls/hr 04/06/21 23:45 04/08/21 08:58 Normal Saline 0.9% IV 100 mls/hr CONT ANI Administration Levetiracetam 500 mg/ Sodium 105 mls @ 420 mls/hr 04/07/21 00:15 04/07/21 23:38 Chloride IV 420 mls/hr Q12H ANI Administration Lactated Ringer's 1,000 mls @ 42 mls/hr 04/08/21 09:56 04/08/21 13:06 Lactated Ringers IV 04/09/21 09:44 42 mls/hr NOW ONE Administration Aztreonam 1 gm/ Dextrose 50 mls @ 100 mls/hr 04/08/21 14:00 04/08/21 14:03 IV 100 mls/hr Q8HR ANI Administration Metronidazole 500 mg in 100 mls @ 100 mls/hr 04/08/21 15:00 04/08/21 14:46 Flagyl IV 100 mls/hr Q8H ANI Administration Morphine Sulfate 1 mg 04/07/21 00:11 04/08/21 09:00 Morphine 2 Mg/Ml Inj IV 1 mg Q4HR PRN Administration Pain, Moderate (4-6) Ondansetron HCl 4 mg 04/06/21 23:59 04/08/21 08:54 Ondansetron 4 Mg/2 Ml Inj IV 4 mg Q6HR PRN Administration Nausea And Vomiting Pantoprazole Sodium 40 mg 04/07/21 13:00 04/08/21 08:54 Pantoprazole 40 Mg Vial IV 40 mg BID ANI Administration Prochlorperazine 5 mg 04/07/21 11:48 04/07/21 12:15 Prochlorperazine 10 Mg/2 Ml Vial IV 5 mg Q6HR PRN Administration Nausea Exam Vital Signs (past 8 hours): - 04/08/21 07:37 04/08/21 07:58 04/08/21 08:54 Temperature 97.6 F Pulse Rate 89 89 Respiratory Rate 18 18 Blood Pressure 111/70 Pulse Oximetry 92 92 93 04/08/21 09:38 04/08/21 12:24 04/08/21 12:28 Temperature 97.5 F L 98.0 F Pulse Rate 96 H 92 H 90 Respiratory Rate 20 20 14 Blood Pressure 144/88 H 96/58 L 96/58 L Pulse Oximetry 92 80 L 88 L 04/08/21 12:37 04/08/21 12:42 04/08/21 12:47 Temperature Pulse Rate 82 60 84 Respiratory Rate 10 L 18 16 Blood Pressure 104/53 L 96/45 L 85/51 L Pulse Oximetry 86 L 88 L 93 04/08/21 12:53 04/08/21 13:00 04/08/21 13:12 Temperature 97.9 F Pulse Rate 82 82 88 Respiratory Rate 20 92 H 12 Blood Pressure 94/5 L 94/56 L 113/78 Pulse Oximetry 93 92 95 04/08/21 13:30 04/08/21 13:45 04/08/21 13:57 Temperature 98 F Pulse Rate 97 H 104 H 107 H Respiratory Rate 21 20 21 Blood Pressure 116/82 101/52 L 105/75 Pulse Oximetry 94 94 91 04/08/21 14:29 Temperature 98.1 F Pulse Rate 105 H Respiratory Rate 23 Blood Pressure 106/51 L Pulse Oximetry 92 Oxygen Delivery Method BiPAP Oxygen Flow Rate 7 Objective Labs Result Diagrams: 04/08/21 16:47 04/08/21 05:30 Labs: Laboratory Results - last 24 hr 04/08/21 04/08/21 04/08/21 05:30 07:06 08:20 WBC 9.1 RBC 4.69 Hgb 14.3 Hct 42.4 MCV 90.4 MCH 30.5 MCHC 33.7 RDW 13.7 Plt Count 268 Sodium 133 L Potassium 3.5 Chloride 101 Carbon Dioxide 29 BUN 14 Creatinine 0.58 Estimated GFR > 60.0 BUN/Creatinine Ratio 24.1 H Glucose 103 Lactate 0.9 Calcium 8.9 Magnesium 1.8 Assessment & Plan Time Spent With Patient Critical Care time: I spent a total of [] minutes of critical care time on this patient's care today; this time is exclusive of procedural time.
[2021-04-08] MEDS: propofoL 1,000 MG/100 ML VIAL 4.44 MG IV (15:10)
[2021-04-08] MEDS: fentaNYL 1,000 MCG in DEXTROSE 5% IN WATER 230 ML 5.735 ML IV (15:10)
[2021-04-08] MEDS: NOREPINEPHRINE BITARTRATE/D5W 4 MG/250 ML PLAST..BAG 7.5 MG IV (15:12)
[2021-04-08 15:13] LABS: HCO3 ABG 26 mmol/L (22-26); PCO2 ABG 47.7 mmHg (35-45); PO2 ABG 46 mmHg (80-100); TCO2 ABG 28 mmol/L (21-31); pH ABG 7.35 (7.35-7.45)
[2021-04-08 15:14] LABS: Fractionated Inspired Oxygen 28; Oxygen Saturation ABG 78 % (95-100)
[2021-04-08 15:17] LABS: Fractionated Inspired Oxygen 100; HCO3 ABG 26 mmol/L (22-26); Oxygen Saturation ABG 92 % (95-100); PCO2 ABG 47.7 mmHg (35-45); PO2 ABG 67 mmHg (80-100); TCO2 ABG 27 mmol/L (21-31)
--- NOTE | 2021-04-08 15:57 | PM.PROC.1 ---
Procedures Date/Time Date of procedure: 04/08/21 Time of procedure: 14:45 Intubation Time out performed: Yes Sedative: other (propofol) Mg given: 100 Paralytic: succinylcholine Mg given: 60 Laryngoscope: other (optical stylet) ET tube size: 7 ET tube uncuffed: No Tube secured depth (cm): 23 Tube secured location: teeth Tube placement confirmation: visualized tube passing through cords, equal breath sounds bilaterally and no breath sounds over epigastrium Patient tolerated procedure: well and no complications Intubation complications: none
[2021-04-08] MEDS: EPINEPHrine 1 MG in DEXTROSE 5% IN WATER 250 ML 15.06 ML IV (16:20)
[2021-04-08] MEDS: HYDROCORTISONE 100 MG/2 ML VIAL (16:25)
[2021-04-08] MEDS: POTASSIUM CHLORIDE IN WATER 10 MEQ/100 ML PIGGYBACK 400 MEQ IV ×4 (16:31→18:55)
--- NOTE | 2021-04-08 16:43 | PM.PROC.1 ---
Procedures Date/Time Date of procedure: 04/08/21 Time of procedure: 16:30 General Procedure description: Our patient was reintunated in the PACU after a trial of BiPap which initially looked favorable. Post intubation she was found to be hypotensive. I came back in to do an arterial line in light of the change in her condition. This should air in her ongoing care in the ICU. A sterile prep of her Left wrist with Chloroprep. A 20 ga Arrow cath was inserted into left radial artery. Good flash. wire threaded easily. Advanced catheter over the wire. Sterile dressing in place and reinforced with tape. Monitor was zeroed and a good waveform was obtained. Initial ABG drawn after placement looked favorable. (See RT notes for that). BP seems stable on initial meds ordered by welding equipment repairer. Complications: none Arterial Line Time out performed: No Size (Gauge): 20 Technique used: guide wire technique Post-Procedure: dry sterile dressing placed Patient tolerated procedure: Well and No complications Site: left and radial
[2021-04-08] MEDS: DEXTROSE 50 % IN WATER 25 GM/50 ML SYRINGE IV (16:50)
[2021-04-08] MEDS: VASOPRESSIN 20 UNIT in SODIUM CHLORIDE 0.9% 100 ML 6.06 ML IV (16:50)
[2021-04-08 17:00] LABS: Fractionated Inspired Oxygen 100
--- NOTE | 2021-04-08 17:02 | DI.RAD.S_ITS ---
PROCEDURE: XR CHEST FOR PICC 1V INDICATIONS: confirm picc placement/NG TUBE COMPARISON: None. FINDINGS: PICC was placed by the intravenous therapy team from the right side. Fluoroscopic spot film demonstrates the tip of PICC projecting to the area of mid SVC. NG 2 distal tip and side-port project over the distal esophagus with tube looped in the midesophagus. IMPRESSION: Tip of PICC projects to the area of mid SVC. NG tube distal tip and side-port project over the distal esophagus. Dictated by: Neida Hudson MD, PhD on 04/08/2021 at 16:46 Approved by: Neida Hudson MD, PhD on 04/08/2021 at 16:47
[2021-04-08 17:04] LABS: PCO2 ABG 39.4 mmHg (35-45); pH ABG 7.36 (7.35-7.45)
--- NOTE | 2021-04-08 17:04 | DIET.CONS ---
Dietary Consultation Note Admission Date: 04/06/2021 20:42 Assessment: 85y F admitted for probable SBO who underwent abd exploration reintubated postop referred to nutrition for NPO on vent status. Pt recently dx stage 3 colon cancer who underwent colectomy two weeks ago at different institution. Pt with probable poor POs x2w secondary to abd surgery and this acute SBO. Recc nutrition support via TPN per previous nutrition consultation yesterday. Care to be taken to monitor pt for refeeding syndrome. Ht: 157.48 cm Wt: 74 kg BMI: 29.8 UBW: Last BM: 04/03/21 (04/08/21 09:38) MNA: 10 Mahamed Score: 16 Diet: 04/06/21 23:52 NPO Diet Diet Modifications: NPO Type: NPO except for Ice Chips Labs: RBC 4.69 X10^6/uL (4.0-5.2) 04/08/21 07:06 Hgb 14.3 g/dL (12.0-16.0) 04/08/21 07:06 Hct 42.4 % (36-46) 04/08/21 07:06 Creatinine 0.58 mg/dL (0.52-1.04) 04/08/21 05:30 Lactate 0.9 mmol/L (0.7-2.1) 04/08/21 08:20 NT-Pro-B Natriuret Pep 570 pg/mL (<450) H 04/06/21 15:17 Electronically Signed by: Stephanie Byrd 04/08/21 17:04 Clinical Dietitian [address] [id number]
[2021-04-08 17:05] LABS: HCO3 ABG 22 mmol/L (22-26); TCO2 ABG 23 mmol/L (21-31)
[2021-04-08 17:10] LABS: Add Manual Diff / Slide Review NO; Basophils Absolute Auto 0 /uL (0-100); Basophils Percent Auto 0.2 % (0-2); Eosinophils Absolute Auto 0 /uL (0-450); Eosinophils Percent Auto 0.1 % (2-4); Hematocrit 38.7 % (36-46); Hemoglobin 12.8 g/dL (12.0-16.0); Lymphocytes Absolute Auto 400 /uL (1100-4500); Lymphocytes Percent Auto 15.6 % (25-40); Mean Corpuscular HGB Conc 33.2 % (30-36); Mean Corpuscular Hemoglobin 30.1 PG (26-34); Mean Corpuscular Volume 90.7 fL (80-100); Monocytes Absolute Auto 200 /uL (0-900); Monocytes Percent Auto 6.8 % (3-14); Neutrophils Absolute Auto 1800 /uL (1500-7000); Neutrophils Percent Auto 77.3 % (50-75); Platelet Count 264 X10^3/uL (150-400); Red Blood Cell Count 4.27 X10^6/uL (4.0-5.2); Red Cell Distribution Width 13.7 % (11.6-14.8); White Blood Cell Count 2.3 X10^3/uL (4.5-11.0)
[2021-04-08] MEDS: MAGNESIUM SULFATE 2 GM/50 ML PIGGYBACK IV ×2 (17:10→18:57)
[2021-04-08 17:11] LABS: PCO2 ABG 35.1 mmHg (35-45); PO2 ABG 61 mmHg (80-100)
[2021-04-08 17:12] LABS: Fractionated Inspired Oxygen 100; HCO3 ABG 26 mmol/L (22-26); Oxygen Saturation ABG 93 % (95-100); TCO2 ABG 27 mmol/L (21-31)
[2021-04-08] MEDS: SODIUM BICARB 8.4% SYRINGE 50 MEQ IV ×2 (17:15→17:25)
[2021-04-08 17:18] LABS: Lactate (Lactic Acid) 3.1 mmol/L (0.7-2.1)
[2021-04-08 17:20] LABS: Alanine Aminotransferase 15 IU/L (<35); Albumin 2.8 g/dL (3.5-5.0); Albumin Globulin Ratio 1.1 (1.0-2.8); Alkaline Phosphatase 83 U/L (38-126); Aspartate Aminotransferase 25 IU/L (14-36); BUN Creatinine Ratio 23.5 (6-22); Bilirubin Total 1.9 mg/dL (0.2-1.3); Blood Urea Nitrogen 20 mg/dL (7-17); Calcium 7.8 mg/dL (8.4-10.2); Carbon Dioxide 24 mmol/L (22-32); Chloride 106 mmol/L (98-107); Estimated Glomerular Filt Rate > 60.0 mL/min (>60); Globulin 2.6 g/dL (1.7-4.1); Glucose 108 mg/dL (80-110); HEMOLYSIS 46 (0-50); Potassium 2.8 mmol/L (3.4-5.1); Sodium 136 mmol/L (137-145); Total Protein 5.4 g/dL (6.3-8.2)
--- NOTE | 2021-04-08 17:30 | PM.EICU.INT ---
Teleintensivist Intervention Date/Time Was camera activated?: Yes Issue(s) Addressed Issue(s): Shock/hypotension (Post cardiac arrest ( 12 min to ROSC) , Max levo and epi, adding vaso & stress dose steroid, check CXR stat, add micafungin, stat CBC, CMP, ABG, lacate, coags for DIC concern as patient oozing blood at different sites, calling family for GOC discussion. Plan discussed with the hospitalist.)
[2021-04-08 17:56] LABS: PCO2 ABG 46.9 mmHg (35-45); pH ABG 7.32 (7.35-7.45)
[2021-04-08 17:57] LABS: Fractionated Inspired Oxygen 100; HCO3 ABG 24 mmol/L (22-26); Oxygen Saturation ABG 91 % (95-100); PO2 ABG 67 mmHg (80-100); TCO2 ABG 25 mmol/L (21-31)
[2021-04-08 17:59] LABS: PTT Partial Thromboplastin Tim 37 SECONDS (26.4-36.2)
[2021-04-08] MEDS: VANCOMYCIN 1,000 MG/200 ML PIGGYBACK 200 MG IV (18:00)
[2021-04-08 18:06] LABS: D Dimer 2406 ng/mL (<230)
[2021-04-08 18:12] LABS: Fibrinogen 234 mg/dL (211-428); INR 1.4 (0.9-1.3); Prothrombin Time 15.8 SECONDS (10.1-12.7)
--- NOTE | 2021-04-08 18:38 | PC.NURSE ---
PT ARRIVED TO ICU FROM PACU 1600- SHE WAS INTUBATED URGENTLY IN PACU AND TRANSFERRED TO ICU ROOM 231, AFTER STARTING LEVOPHED, TO MAINTAIN MAP>60, FENTANYL 25MCG/H, PROPOFOL 10MCG/KG/MIN., UNABLE TO OBTAIN TO MANUAL B/P- WEAK THREADY PULSE NOTED- EPI GTT STARTED PER TELE SPOUT LINER HELPER TO MAINTAIN MAP >60 ONE AMP BIACARB GIVEN OGT PLACED AND READJUSTED PER RADIOLOGY WITH INITIAL DRAINAGE OF BILE-LIKE MATERIAL THEN TURNING BLOODY IN NATURE- ART LINE PLACED BY TRE. WITH CRISP WAVEFORM AND CORRELATED WITH CUFF PRESSURE, ABLE OT OBTAIN GAS AT HTISTIME FROM ART LINE/LABS WELL.VENT SETTINGS 100% FROM PACU WITH PEEP 10, PICC LINE PLACED RIGHT UPPER ARM AND PT WITH PEA ARREST AND CPR INITIATED, CODE BLUE CALLED- EPI GTT/LEVOPHED GTT/BICARB/D50X 1 AMP GIVEN- ROSC WITHIN 6-7 MINUTES. POTASSIUM REPLACEMENT COMPLETED WELL MAG GM IV - MD CALL TO SON AND CODE STATUS CHANGED TO DNR AND PLANS TO NOT PERFORM CPR AGAIN AND GOAL OF COMFORT
[2021-04-08 19:00] LABS: Reflexed Lactate in 2 Hours Y
[2021-04-08] MEDS: HYDROCORTISONE 100 MG/2 ML VIAL IV (19:05)
[2021-04-08] MEDS: levETIRAcetam 500 MG in SODIUM CHLORIDE 0.9% 100 ML 420 ML IV (19:35)
[2021-04-08] MEDS: MEROPENEM 1 GM in SODIUM CHLORIDE 0.9% 100 ML 200 ML IV (19:47)
[2021-04-08] MEDS: CHLORHEXIDINE GLUCONATE 15 ML CUP PO (19:47)
--- NOTE | 2021-04-08 20:28 | PM.EVENT ---
Event Note Date Patient Seen: 04/08/21 Event Note: NAAND BLUE Please see progress note for full details. Patient was in septic shock and acute hypoxemic respiratory failure after surgery earlier today. She had been intubated, difficult to ventilate. She was already on maximum of norepinephrine and epinephrine. She was noted to not have a pulse. CODE BLUE initiated. Patient was in PEA arrest. She had approximately 12 minutes of CPR with ROSC and remained in ICU in critical condition. Please see progress notes for further details
--- NOTE | 2021-04-08 20:34 | P.PN_ITS ---
Subjective Subjective Date Patient Seen: 04/08/21 Time Patient Seen: 14:00 Interval history: Ms. Carreon was seen after surgery. I was notified that she was in respiratory distress and hypoxemic after surgery. Went to evaluate patient and there was a question of possible aspiration. Discussed case with surgeon and anesthesiologist. In the PACU she remained hypoxemic on max oxygen settings on BIPAP. She was intubated. She was transferred to the ICU. She was significantly hypoxemic, and in septic shock. Sepis fluid boluses were ordered. She was started on norepinephrine, epinephrine. Her blood pressures were for a prolonged peroid of time low and then very labile. She was given vancomycin, aztreonam, flagyl. OG tube was placed which returned bilious liquid. Chest xray showed infiltrates concerning for pneumonia. During this she lost a pulse. PEA arrest. CODE blue initiated, she had 12 minutes of CPR with return of ROSC. Labs notable for hypokalemia, ordered for potassium, magnesium, hydrocortisone. Throughout she maintained labile blood pressures, and labile oxygenation despite three pressors and maximum oxygenation on the ventilator. Discussion was had with her son who stated that she should be made comfortable if she became further unstable. Despite three pressors she became hypotensive in the systolic 50s. Her son agreed with comfort care, and comfort care was initiated. Exam Vital Signs (past 8 hours): - 04/08/21 12:37 04/08/21 12:42 04/08/21 12:47 Temperature Pulse Rate 82 60 84 Respiratory Rate 10 L 18 16 Blood Pressure 104/53 L 96/45 L 85/51 L Pulse Oximetry 86 L 88 L 93 04/08/21 12:53 04/08/21 13:00 04/08/21 13:12 Temperature 97.9 F Pulse Rate 82 82 88 Respiratory Rate 20 92 H 12 Blood Pressure 94/5 L 94/56 L 113/78 Pulse Oximetry 93 92 95 04/08/21 13:30 04/08/21 13:45 04/08/21 13:57 Temperature 98 F Pulse Rate 97 H 104 H 107 H Respiratory Rate 21 20 21 Blood Pressure 116/82 101/52 L 105/75 Pulse Oximetry 94 94 91 04/08/21 14:15 04/08/21 14:29 04/08/21 14:45 Temperature 98.1 F Pulse Rate 105 H 105 H 105 H Respiratory Rate 20 23 22 Blood Pressure 109/66 106/51 L 106/61 Pulse Oximetry 96 92 91 04/08/21 15:00 04/08/21 15:10 04/08/21 15:20 Temperature 98 F Pulse Rate 106 H 91 H 93 H Respiratory Rate 18 8 L 8 L Blood Pressure 99/70 50/27 L 65/39 L Pulse Oximetry 91 88 L 04/08/21 15:25 04/08/21 15:27 04/08/21 15:42 Temperature Pulse Rate 106 H 107 H 98 H Respiratory Rate 14 12 20 Blood Pressure 89/47 L 102/60 Pulse Oximetry 90 L 91 04/08/21 15:44 04/08/21 16:00 04/08/21 16:23 Temperature Pulse Rate 105 H 100 H 101 H Respiratory Rate 20 20 26 H Blood Pressure 92/44 L 93/61 Pulse Oximetry 86 L 86 L 98 04/08/21 16:24 04/08/21 16:26 04/08/21 16:30 Temperature Pulse Rate 108 H 112 H 104 H Respiratory Rate 26 H 20 26 H Blood Pressure 115/78 166/91 H Pulse Oximetry 99 98 96 04/08/21 16:35 04/08/21 16:40 04/08/21 16:45 Temperature Pulse Rate 100 H 99 H 101 H Respiratory Rate 26 H 26 H 26 H Blood Pressure 99/59 L Pulse Oximetry 97 96 96 04/08/21 16:50 04/08/21 16:55 04/08/21 17:00 Temperature Pulse Rate 101 H 96 H 86 Respiratory Rate 24 22 22 Blood Pressure Pulse Oximetry 95 96 96 04/08/21 17:05 04/08/21 17:10 04/08/21 17:15 Temperature Pulse Rate 82 101 H 79 Respiratory Rate 22 22 22 Blood Pressure Pulse Oximetry 91 100 97 04/08/21 17:20 04/08/21 17:25 04/08/21 17:30 Temperature Pulse Rate 134 H 130 H 93 H Respiratory Rate 135 H 120 H 22 Blood Pressure Pulse Oximetry 93 88 L 86 L 04/08/21 17:35 04/08/21 18:37 04/08/21 20:13 Temperature Pulse Rate 130 H 73 Respiratory Rate 22 22 Blood Pressure 121/75 Pulse Oximetry 78 L 95 90 L Fraction of Inspired Oxygen 100 Oxygen Delivery Method Room Air Oxygen Flow Rate 15 Narrative Exam Narrative: Gen: ill appearing, intubated Resp: coarse breath sounds, intubated CV: regular rate and rhytm, no murmurs Abd: soft, distended, decreased bowel sound, surgical scar clean EXT: mottled NEURO: obtunded intubated HEME: multiple bleeding sites from OG tube, vent, and peripheral lines Objective Labs Result Diagrams: 04/08/21 16:47 04/08/21 16:47 Labs: Laboratory Results - last 24 hr 04/08/21 04/08/21 04/08/21 05:30 07:06 08:20 WBC 9.1 RBC 4.69 Hgb 14.3 Hct 42.4 MCV 90.4 MCH 30.5 MCHC 33.7 RDW 13.7 Plt Count 268 Neut % (Auto) Lymph % (Auto) Merrick % (Auto) Eos % (Auto) Baso % (Auto) Neut # (Auto) Lymph # (Auto) Merrick # (Auto) Eos # (Auto) Baso # (Auto) PT INR APTT Fibrinogen D-Dimer ABG pH ABG pCO2 ABG pO2 ABG HCO3 ABG Total CO2 ABG O2 Saturation ABG Base Excess FiO2 Sodium 133 L Potassium 3.5 Chloride 101 Carbon Dioxide 29 BUN 14 Creatinine 0.58 Estimated GFR > 60.0 BUN/Creatinine Ratio 24.1 H Glucose 103 Lactate 0.9 Calcium 8.9 Magnesium 1.8 Total Bilirubin AST ALT Alkaline Phosphatase Total Protein Albumin Globulin Albumin/Globulin Ratio Nasal Screen MRSA (PCR) 04/08/21 04/08/21 04/08/21 12:34 13:12 15:35 WBC RBC Hgb Hct MCV MCH MCHC RDW Plt Count Neut % (Auto) Lymph % (Auto) Merrick % (Auto) Eos % (Auto) Baso % (Auto) Neut # (Auto) Lymph # (Auto) Merrick # (Auto) Eos # (Auto) Baso # (Auto) PT INR APTT Fibrinogen D-Dimer ABG pH 7.35 7.33 L ABG pCO2 47.7 H 47.7 H ABG pO2 46 L* 67 L ABG HCO3 26 26 ABG Total CO2 28 27 ABG O2 Saturation 78 L* 92 L ABG Base Excess 1.0 0.0 FiO2 28 100 Sodium Potassium Chloride Carbon Dioxide BUN Creatinine Estimated GFR BUN/Creatinine Ratio Glucose Lactate Calcium Magnesium Total Bilirubin AST ALT Alkaline Phosphatase Total Protein Albumin Globulin Albumin/Globulin Ratio Nasal Screen MRSA (PCR) Negative for mrsa 04/08/21 04/08/21 04/08/21 15:54 16:40 16:47 WBC RBC Hgb Hct MCV MCH MCHC RDW Plt Count Neut % (Auto) Lymph % (Auto) Merrick % (Auto) Eos % (Auto) Baso % (Auto) Neut # (Auto) Lymph # (Auto) Merrick # (Auto) Eos # (Auto) Baso # (Auto) PT INR APTT Fibrinogen D-Dimer ABG pH 7.36 7.50 H ABG pCO2 39.4 35.1 ABG pO2 43 L* 61 L ABG HCO3 22 26 ABG Total CO2 23 27 ABG O2 Saturation 77 L* 93 L ABG Base Excess -3.0 L 2.0 FiO2 100 100 Sodium Potassium Chloride Carbon Dioxide BUN Creatinine Estimated GFR BUN/Creatinine Ratio Glucose Lactate 3.1 H Calcium Magnesium Total Bilirubin AST ALT Alkaline Phosphatase Total Protein Albumin Globulin Albumin/Globulin Ratio Nasal Screen MRSA (PCR) 04/08/21 04/08/21 04/08/21 16:47 16:47 17:25 WBC 2.3 L D RBC 4.27 Hgb 12.8 Hct 38.7 MCV 90.7 MCH 30.1 MCHC 33.2 RDW 13.7 Plt Count 264 Neut % (Auto) 77.3 H Lymph % (Auto) 15.6 L Merrick % (Auto) 6.8 Eos % (Auto) 0.1 L Baso % (Auto) 0.2 Neut # (Auto) 1800 Lymph # (Auto) 400 L Merrick # (Auto) 200 Eos # (Auto) 0 Baso # (Auto) 0 PT INR APTT 37 H D Fibrinogen D-Dimer 2406 H ABG pH ABG pCO2 ABG pO2 ABG HCO3 ABG Total CO2 ABG O2 Saturation ABG Base Excess FiO2 Sodium 136 L Potassium 2.8 L Chloride 106 Carbon Dioxide 24 BUN 20 H Creatinine 0.85 Estimated GFR > 60.0 BUN/Creatinine Ratio 23.5 H Glucose 108 Lactate Calcium 7.8 L Magnesium Total Bilirubin 1.9 H AST 25 ALT 15 Alkaline Phosphatase 83 D Total Protein 5.4 L Albumin 2.8 L Globulin 2.6 Albumin/Globulin Ratio 1.1 Nasal Screen MRSA (PCR) 04/08/21 04/08/21 17:25 17:40 WBC RBC Hgb Hct MCV MCH MCHC RDW Plt Count Neut % (Auto) Lymph % (Auto) Merrick % (Auto) Eos % (Auto) Baso % (Auto) Neut # (Auto) Lymph # (Auto) Merrick # (Auto) Eos # (Auto) Baso # (Auto) PT 15.8 H INR 1.4 H APTT Fibrinogen 234 D-Dimer ABG pH 7.32 L ABG pCO2 46.9 H ABG pO2 67 L ABG HCO3 24 ABG Total CO2 25 ABG O2 Saturation 91 L ABG Base Excess -2.0 FiO2 100 Sodium Potassium Chloride Carbon Dioxide BUN Creatinine Estimated GFR BUN/Creatinine Ratio Glucose Lactate Calcium Magnesium Total Bilirubin AST ALT Alkaline Phosphatase Total Protein Albumin Globulin Albumin/Globulin Ratio Nasal Screen MRSA (PCR) [facility] Medical History Acid reflux Epilepsy Paroxysmal atrial fibrillation Family History (Updated 04/07/21 @ 06:26 by MINNA Andrade) Father Brain tumor Mother Brain tumor Other Congestive heart failure Social History marital status: household members: family and other lives independently: Yes Smoking Status: Former smoker alcohol intake: never Assessment & Plan Assessment & Plan narrative: Ms. Carreon is an 85W with [facility] colon cancer s/p colectomy who presents with strangulated hernia who s/p resection and freeing of bowel developed presumed aspiration pneumonia acute hypoxemic respiratory failue septic shock and cardiac arrest. 1. Presumed aspiration pneumonia, septic shock, acute metabolic encephalopathy, acute hypoxemic respiratory failure, and cardiac arrest -patient was started of sepsis protocol -broad spectrum antibiotics were ordered with vancomycin, aztreonam, flagyl -patient was re-intubated in the pacu -she developed shock with blood pressure undetectable -she was eventually maxed to 3 pressors -she had PEA arrest with ROSC after CPR -after further discussion with her son she was made comfort measures as she became hypotensive to the 50s despite these the above therapy 2. Colon cancer, s/p recent colectomy, complication with strangulated hernia s/p ex-lap with lysis of adhesions and resection of strangulation -patient now comfort care Patient is imminent, she is comfort care, family is notified. Time Spent With Patient Critical Care time: I spent a total of [] minutes of critical care time on this patient's care today; this time is exclusive of procedural time. Quality VTE Deep Vein Thrombosis/Pulmonary Embolism Present on Admission: No
--- NOTE | 2021-04-08 20:35 | PC.NURSE ---
Addendum entered by Kenna Gandhi R.N. 04/08/21 20:51: 2045- Patient went asystole at 20:38. 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 Original Note: 1999- Patient dropped her pressure and we were not able to appreciate a pulse. Emergent button to [employer] activated. Patient family has chosen to not do any further heroic measures. Patient transitioned to comfort care and extubated. Levophed, Epinepherine, Vasopressin, and Propofol discontinued once extubated. Fentanyl gtt infusing for comfort.
--- NOTE | 2021-04-08 21:32 | PM.DDS.1 ---
Discharge Summary History of Illness Chief Complaint: Nausea/Vomiting/Diarrhea Narrative: Per Saranya Johnson: Dinora Carreon is an 85 y.o. resident of [facility] living in [place] with a seizure disorder, stage 3 colon cancer status post partial colectomy 2 weeks ago, ventral hernia,, hypertension, paroxysmal atrial fibrillation previously cardioverted, large hiatal hernia presented with a 2 day history of nausea and dry heaves but no vomiting? She also had 2 episodes of breakthrough seizures that were witnessed by her caregivers.? She states that she developed seizures at an early age in her teens and at that time they were grand mal seizures and now they seem to be more subtle, she blacks out and does not know that she has had them.? She does endorse having more fatigue than usual, nausea, vomiting, diminished appetite, and pain in her flank.? She denies fever chills, shortness of breath, chest pain, she does endorse having chronic urinary incontinence, denies diarrhea and in fact his had no bowel movement since Monday. I reviewed the history and physical and pathology reports from [facility].? On February 05 patient underwent a colonoscopy and was found to have a newly diagnosed cecal cancer.? They found a in Fabiola late id sigmoid polyp but was not removed because the patient was taking Plavix at the time.? She then underwent a right colectomy by Dr. Shoaib Dumont and the pathology results reported an invasive poorly differentiated colonic adenocarcinoma. CT of the pelvis indicated ?Several of the herniated loops of small bowel demonstrates circumferential wall thickening in there is mild inflammation and fluid within the hernia.?? In addition to anastomotic sutures from her recent colectomy.? Patient's most recent temperature indicates she is febrile at 100.2, blood pressure 152/76, heart rate 79, respiratory rate 16, oxygen saturation of 94% on room air, she weighs 74 kg with a BMI of 29.8.? CBC is unremarkable, she does have a mild left shift of 7300 neutrophils, sodium is 134, chloride 94, glucose 139, AST 38, alk-phos 186, proBNP is 570, UA is negative for UTI, her phenytoin level was 5.4, subtherapeutic, and COVID-19 PCR is negative. 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 Septic shock 2. Aspiration pneumonia 3. Acute hypoxemic respiratory failure 4. Cardiac arrest 5 strangulated hernia and bowel obstruction 6. Stage 3 colon cancer s/p recent colectomy Hospital Course: Ms. Carroen was admitted after a recent colectomy for stage 3 colon cancer. She was admitted with complication of strangulated hernia. She underwent surgery for this on 04/08. She had probable aspiration event and afterwards became hypoxemic and septic progressing to shock. She was started on broad spectrum antibiotics. She was intubated. She remained unstable and had cardiac arrest with ROSC after CPR. Discussion was had with son who wanted patient to be kept comfortable if she continued to decline. She was hypotensive on max pressors and son agreed with transion to comfort measures and she peaceffuly at 2037. Objective Labs Result Diagrams: 04/08/21 16:47 04/08/21 16:47 Labs: Laboratory Results - last 24 hr 04/08/21 04/08/21 04/08/21 05:30 07:06 08:20 WBC 9.1 RBC 4.69 Hgb 14.3 Hct 42.4 MCV 90.4 MCH 30.5 MCHC 33.7 RDW 13.7 Plt Count 268 Neut % (Auto) Lymph % (Auto) [place] % (Auto) Eos % (Auto) Baso % (Auto) Neut # (Auto) Lymph # (Auto) [place] # (Auto) Eos # (Auto) Baso # (Auto) PT INR APTT Fibrinogen D-Dimer ABG pH ABG pCO2 ABG pO2 ABG HCO3 ABG Total CO2 ABG O2 Saturation ABG Base Excess FiO2 Sodium 133 L Potassium 3.5 Chloride 101 Carbon Dioxide 29 BUN 14 Creatinine 0.58 Estimated GFR > 60.0 BUN/Creatinine Ratio 24.1 H Glucose 103 Lactate 0.9 Calcium 8.9 Magnesium 1.8 Total Bilirubin AST ALT Alkaline Phosphatase Total Protein Albumin Globulin Albumin/Globulin Ratio Nasal Screen MRSA (PCR) 04/08/21 04/08/21 04/08/21 12:34 13:12 15:35 WBC RBC Hgb Hct MCV MCH MCHC RDW Plt Count Neut % (Auto) Lymph % (Auto) [place] % (Auto) Eos % (Auto) Baso % (Auto) Neut # (Auto) Lymph # (Auto) [place] # (Auto) Eos # (Auto) Baso # (Auto) PT INR APTT Fibrinogen D-Dimer ABG pH 7.35 7.33 L ABG pCO2 47.7 H 47.7 H ABG pO2 46 L* 67 L ABG HCO3 26 26 ABG Total CO2 28 27 ABG O2 Saturation 78 L* 92 L ABG Base Excess 1.0 0.0 FiO2 28 100 Sodium Potassium Chloride Carbon Dioxide BUN Creatinine Estimated GFR BUN/Creatinine Ratio Glucose Lactate Calcium Magnesium Total Bilirubin AST ALT Alkaline Phosphatase Total Protein Albumin Globulin Albumin/Globulin Ratio Nasal Screen MRSA (PCR) Negative for mrsa 04/08/21 04/08/21 04/08/21 15:54 16:40 16:47 WBC RBC Hgb Hct MCV MCH MCHC RDW Plt Count Neut % (Auto) Lymph % (Auto) [place] % (Auto) Eos % (Auto) Baso % (Auto) Neut # (Auto) Lymph # (Auto) [place] # (Auto) Eos # (Auto) Baso # (Auto) PT INR APTT Fibrinogen D-Dimer ABG pH 7.36 7.50 H ABG pCO2 39.4 35.1 ABG pO2 43 L* 61 L ABG HCO3 22 26 ABG Total CO2 23 27 ABG O2 Saturation 77 L* 93 L ABG Base Excess -3.0 L 2.0 FiO2 100 100 Sodium Potassium Chloride Carbon Dioxide BUN Creatinine Estimated GFR BUN/Creatinine Ratio Glucose Lactate 3.1 H Calcium Magnesium Total Bilirubin AST ALT Alkaline Phosphatase Total Protein Albumin Globulin Albumin/Globulin Ratio Nasal Screen MRSA (PCR) 04/08/21 04/08/21 04/08/21 16:47 16:47 17:25 WBC 2.3 L D RBC 4.27 Hgb 12.8 Hct 38.7 MCV 90.7 MCH 30.1 MCHC 33.2 RDW 13.7 Plt Count 264 Neut % (Auto) 77.3 H Lymph % (Auto) 15.6 L [place] % (Auto) 6.8 Eos % (Auto) 0.1 L Baso % (Auto) 0.2 Neut # (Auto) 1800 Lymph # (Auto) 400 L [place] # (Auto) 200 Eos # (Auto) 0 Baso # (Auto) 0 PT INR APTT 37 H D Fibrinogen D-Dimer 2406 H ABG pH ABG pCO2 ABG pO2 ABG HCO3 ABG Total CO2 ABG O2 Saturation ABG Base Excess FiO2 Sodium 136 L Potassium 2.8 L Chloride 106 Carbon Dioxide 24 BUN 20 H Creatinine 0.85 Estimated GFR > 60.0 BUN/Creatinine Ratio 23.5 H Glucose 108 Lactate Calcium 7.8 L Magnesium Total Bilirubin 1.9 H AST 25 ALT 15 Alkaline Phosphatase 83 D Total Protein 5.4 L Albumin 2.8 L Globulin 2.6 Albumin/Globulin Ratio 1.1 Nasal Screen MRSA (PCR) 04/08/21 04/08/21 17:25 17:40 WBC RBC Hgb Hct MCV MCH MCHC RDW Plt Count Neut % (Auto) Lymph % (Auto) [place] % (Auto) Eos % (Auto) Baso % (Auto) Neut # (Auto) Lymph # (Auto) [place] # (Auto) Eos # (Auto) Baso # (Auto) PT 15.8 H INR 1.4 H APTT Fibrinogen 234 D-Dimer ABG pH 7.32 L ABG pCO2 46.9 H ABG pO2 67 L ABG HCO3 24 ABG Total CO2 25 ABG O2 Saturation 91 L ABG Base Excess -2.0 FiO2 100 Sodium Potassium Chloride Carbon Dioxide BUN Creatinine Estimated GFR BUN/Creatinine Ratio Glucose Lactate Calcium Magnesium Total Bilirubin AST ALT Alkaline Phosphatase Total Protein Albumin Globulin Albumin/Globulin Ratio Nasal Screen MRSA (PCR)
[2021-04-12 08:17] LABS: pH ABG 7.47 (7.35-7.45)
[2021-04-12 08:33] LABS: pH ABG 7.34 (7.35-7.45)
[2021-04-12 08:50] LABS: PO2 ABG 43 mmHg (80-100)
[2021-04-12 08:51] LABS: Oxygen Saturation ABG 77 % (95-100)
== END 2021-04-08 22:08 | disposition expired | DRG 335 ==
LOC: ED 20:31 → AC 20:43 → ICU 04-08 13:46
PROVIDERS: Emergency Medicine; Internal Medicine; Surgery; Admitting Provider Nurse Practitioner Family; Emergency Provider Student in an Organized Health Care Education/Training Program; PCP Internal Medicine; Referring Provider Student in an Organized Health Care Education/Training Program; Visit Provider Nurse Practitioner Family
PROC: 0WQF0ZZ Repair Abdominal Wall, Open Approach (ICD-10-PCS; CPT 49000; principal; 2021-04-08 10:30)
DX: K43.6 Other and unspecified ventral hernia with obstruction, without gangrene (principal); J96.02 Acute respiratory failure with hypercapnia; J96.01 Acute respiratory failure with hypoxia; A41.9 Sepsis, unspecified organism; R65.21 Severe sepsis with septic shock; J69.0 Pneumonitis due to inhalation of food and vomit; I48.0 Paroxysmal atrial fibrillation; K66.0 Peritoneal adhesions (postprocedural) (postinfection); I46.9 Cardiac arrest, cause unspecified; G40.909 Epilepsy, unspecified, not intractable, without status epilepticus; I10 Essential (primary) hypertension; Z20.822 Contact with and (suspected) exposure to COVID-19; Z51.5 Encounter for palliative care; Z87.891 Personal history of nicotine dependence
CPT/HCPCS: 36415; 36569; 36600; 71045; 74018; 74177; 80048; 80053; 80076; 80185; 81003; 81015; 82805; 83605; 83690; 83735; 83880; 84484; 85025; 85027; 85379; 85384; 85610; 85730; 87070; 87077; 87185; 87186; 87205; 87635; 87797; 92950; 93005; 93010; 94002; 94660; 94760; 94799; 96361; 96374; 99285; C9803; C9113; J0171; J0780; J1644; J1720; J1953; J2185; J2270; J2405; J2543; J2704; J3010; J3475; Q9967